=== PATIENT | male | born 1945 | race Hispanic/Latino ===

== ENCOUNTER 2019-10-17 11:30 | Outpatient (CLI) | payer MEDICARE, SELFPAY ==
--- NOTE | ~2019-10-17 | XR_ITS ---
XR chest 2V DATE: 10/17/2019 11:47 INDICATION: Cough, shortness of breath TECHNIQUE: PA and lateral views COMPARISON: 12/05/2018 CT chest 08/13/2017 two-view chest FINDINGS: Heart size is within normal limits. There is mild aortic calcification and tortuosity. No h ilar or mediastinal enlargement. No pulmonary infiltrate or consolidation, pleural effusion or pulmonary vascular congestion or pneumo thorax. Degenerative changes of the thoracic and lumbar spine. Status post cholecystectomy. IMPRESSION: No active cardiopulmonary disease or significant change since 08/13/2017 Reviewed, dictated and finalized at location B. IMPRESSION: No active cardiopulmonary disease or significant change since 2017
== END 2019-10-17 11:31 | disposition home or self-care (01) ==
PROVIDERS: PCP Internal Medicine; Visit Provider Internal Medicine
DX: R05 Cough (principal); R06.02 Shortness of breath
CPT/HCPCS: 71046

== ENCOUNTER 2020-02-28 08:16 | Outpatient (CLI) | payer MEDICARE, SELFPAY ==
[2020-02-28 09:15] LABS: Alanine Aminotransferase 24 U/L (4-50); Albumin Level 4.1 g/dL (3.5-5.1); Alkaline Phosphatase 61 U/L (38-126); Anion Gap 7 mmol/L (8-16); Aspartate Amino Transferase 25 U/L (17-59); Bilirubin,Total 0.9 mg/dL (0.2-1.3); Blood Urea Nitrogen 18 mg/dL (9-20); Calcium 9.1 mg/dL (8.4-10.2); Carbon Dioxide 29 mmol/L (22-30); Chloride 103 mmol/L (98-107); Cholesterol 186 mg/dL (0-200); Estimated Glomerular Filt Rate > 60; Glucose 96 mg/dL (75-110); HDL Direct 49 mg/dL; Sodium 139 mmol/L (137-145); Triglycerides 118 mg/dL (<150)
[2020-02-28 09:26] LABS: LDL Cholesterol Direct 100 mg/dL
== END 2020-02-28 08:17 | disposition home or self-care (01) ==
LOC: ANHLAB 08:20
PROVIDERS: PCP Internal Medicine; Visit Provider Nurse Practitioner
DX: F32.9 Major depressive disorder, single episode, unspecified (principal); Z13.6 Encounter for screening for cardiovascular disorders; Z12.5 Encounter for screening for malignant neoplasm of prostate
CPT/HCPCS: 36415; 80053; 80061; 84153; 84443; 87635; C9803; G0103; U0003

== ENCOUNTER 2020-03-05 07:52 | Outpatient (CLI) | payer MEDICARE, SELFPAY ==
--- NOTE | ~2020-03-05 | CT_ITS ---
EXAMINATION: CT chest w con DATE: 03/05/2020 08:40 INDICATION: Solitary pulmonary nodule TECHNIQUE: Transaxial computed tomographic images of the chest were obtained after the administration of 75 cc of Omnipaque 350 intravenous contrast. The dose-length product (DLP) was 199.15 mGy-cm. Ite rative reconstruction was used. COMPARISON: 12/05/2018, 12/07/2017 FINDINGS: The lungs are free of focal airspace opacities. There is mild dependent atelectasis. No pat hologically enlarged thoracic lymph nodes are identified. The heart size is normal. There are unchang ed mild subpleural reticular and groundglass opacities without honeycombing, consistent with chronic interstitial lung disease in a pattern of nonspecific interstitial pneumonia (NSIP). There is no pleu ral effusion or pneumothorax. Stable nodules of the minor fissure measuring up to 4 mm are consistent with fissural lymph nodes. The gallbladder is surgically absent. There is mild enlargement of the co mmon bile duct and central intrahepatic ducts which is likely due to post cholecystectomy state. Ther e is moderate thoracic spondylosis. IMPRESSION: 1. No suspicious pulmonary nodules identified. 2. Mild chronic interstitial lung disease without significant change. Reviewed, dictated and finalized at location A.
== END 2020-03-05 07:53 | disposition home or self-care (01) ==
PROVIDERS: PCP Internal Medicine; Visit Provider Nurse Practitioner
DX: R91.1 Solitary pulmonary nodule (principal); J84.9 Interstitial pulmonary disease, unspecified
CPT/HCPCS: 71260; Q9967

== ENCOUNTER 2020-04-26 08:01 | Emergency (ER) | payer MEDICARE, SELFPAY ==
--- NOTE | ~2020-04-26 | XR_ITS ---
EXAMINATION: XR chest 1V 04/26/2020 10:42 INDICATION: Fever and dyspnea PROCEDURE: AP view chest COMPARISON: Comparison to multiple prior studies sequentially, with oldest reviewed study dated 07/27. FINDINGS: No acute focal pneumonia, edema. Chronic left basilar atelectasis/scarring. The cardiomedia stinal silhouette is within normal limits. There are no pleural effusions. There is no pneumothorax suspected. IMPRESSION: 1: NO ACUTE CARDIOPULMONARY DISEASE. Reviewed, dictated and finalized at location A.
--- NOTE | ~2020-04-26 | CT_ITS ---
EXAMINATION: CT abdomen pelvis w con DATE: 04/26/2020 10:30 INDICATION: Mid abdomen pain TECHNIQUE: Computed tomography (CT) of the abdomen and pelvis was performed with 100 cc Omnipaque 350 intravenous contrast. The dose-length product was 397.28 mGy-cm. Automated exposure control and iter ative reconstruction technique were employed. COMPARISON: CT dated 09/29/2006. FINDINGS: Lung bases unremarkable. Heart size normal. No significant pleural or pericardial effusion. Status post cholecystectomy. There is a left hepatic cyst. The spleen, pancreas, adrenal glands and k idneys are unremarkable. Nonobstructive bowel gas pattern. Normal appendix. Bladder is unremarkable. Enlarged prostate gland. Colonic diverticulosis without evidence for diverticulitis. No free air or f ree fluid. No lymphadenopathy. Mild lower thoracic and lumbar spondylosis. No acute osseous abnormali ty. Status post cholecystectomy with expected prominence of the bile ducts. IMPRESSION: 1. No acute abdominal abnormality. 2: Enlarged prostate gland. Reviewed, dictated and finalized at location A.
[2020-04-26 08:04] VITALS: BP 123/84; PULSE 91; RESP 18; TEMP 36.6; O2SAT 100
[2020-04-26 09:02] LABS: Basophils Percent Auto 0.3 % (0.2-1.2); Eosinophils Absolute Auto 0.1 K/mm3 (0-0.3); Eosinophils Percent Auto 0.9 % (0-4.4); Hematocrit 41.6 % (42.0-52.0); Hemoglobin 14.5 g/dL (14.0-18.0); Immature Granulocyte Absolute 0.04 K/mm3 (0.00-0.031); Immature Granulocyte Percent A 0.3 % (0-0.5); Lymphocytes Absolute Auto 1.23 K/mm3 (0.9-3.2); Lymphocytes Percent Auto 10.5 % (18.3-44.2); Mean Corpuscular HGB Conc 34.9 g/dl (32-36); Mean Corpuscular Volume 97.7 fl (80-100); Mean Platelet Volume 12.1 fl (7.4-10.4); Monocytes Absolute Auto 0.8 K/mm3 (0.1-0.6); Monocytes Percent Auto 6.7 % (2.6-8.5); Neutrophils Absolute Auto 9.5 K/mm3 (1.3-6.7); Neutrophils Percent Auto 81.3 % (45.5-73.1); Platelet Count Result 136 k/mm3 (150-375); Red Blood Count 4.26 M/mm3 (4.6-6.20); White Blood Count 11.7 K/mm3 (4.5-10.0)
[2020-04-26 09:03] LABS: Add Urine Microscopic? NO; Appearance Urine Clear (Clear); Bilirubin Urine Negative (Negative); Blood Urine Negative (Negative); Color Urine Yellow (Yellow); Glucose Urine UA Negative (Negative); Ketones Urine Negative (Negative); Leukocyte Esterase Ur Negative LEU/UL (Negative); Nitrate Urine Negative (Negative); Protein Urine Negative (Negative); Urobilinogen Urine Negative mg/dL (<2.0)
[2020-04-26 09:15] LABS: Alanine Aminotransferase 27 U/L (4-50); Albumin Level 3.8 g/dL (3.5-5.1); Alkaline Phosphatase 63 U/L (38-126); Anion Gap 8 mmol/L (8-16); Aspartate Amino Transferase 24 U/L (17-59); Bilirubin,Total 1.4 mg/dL (0.2-1.3); Blood Urea Nitrogen 20 mg/dL (9-20); Calcium 8.8 mg/dL (8.4-10.2); Carbon Dioxide 28 mmol/L (22-30); Chloride 103 mmol/L (98-107); Estimated CRCL calculation 52 ml/min; Estimated Glomerular Filt Rate > 60; Glucose 105 mg/dL (75-110); Lipase 53 U/L (23-300); Potassium 3.9 mmol/L (3.4-5.0); Sodium 139 mmol/L (137-145)
[2020-04-26] MEDS: SODIUM CHLORIDE 0.9% IV 1,000 ML 999 ML IV CONT ×2 (09:35→12:17)
[2020-04-26] MEDS: ONDANSETRON INJ 4 MG/2 ML VIAL IV PUSH (09:36)
--- NOTE | 2020-04-26 09:41 | PC.NURSE ---
Zofran given as ordered. IVF started. patient updated on current treatment plan and expected wait time. call light in reach.
--- NOTE | 2020-04-26 10:02 | ED.NAVMDI ---
HPI - Nausea/Vomiting/Diarrhea General Chief complaint: Nausea/Vomiting/Diarrhea Stated complaint: food poisoning Time Seen by Provider: 04/26/20 09:12 Source: patient Mode of arrival: ambulatory Limitations: no limitations History of Present Illness HPI Narrative: 75 years old white male presented to the ED with nausea, vomiting, diarrhea, fever and headache. started last night. Patient also reports sore throat for the last 5 days. Patient believes that he had food poisoning., He denies eating anything unusual, he lives alone, nobody else ate the same food. Currently complaining of nausea and mid abdominal pain. Patient denies exposure to anybody with COVID-19. Patient denies any coughing, chest pain, shortness of breath, back pain. Related Data Allergies Allergy/AdvReac Type Severity Reaction Status Date / Time No Known Allergies Allergy Verified 04/15/20 10:52 Review of Systems Review of Systems: Narrative: CONSTITUTIONAL: Fever and chills EYES: Denies visual changes, redness, or discharge. ENT: Denies rhinorrhea, congestion, complaining of sore throat CARDIOVASCULAR: Denies chest pain, palpitations, or edema. RESPIRATORY: Denies cough or dyspnea. GASTROINTESTINAL: Complaining of abdominal pain, nausea, vomiting, diarrhea GENITOURINARY: Denies dysuria or hematuria. SKIN: Denies rash or itching. MUSCULOSKELETAL: Denies back pain, joint pain, or myalgia. NEUROLOGIC: Denies headache, numbness, or weakness. PSYCHIATRIC: Denies anxiety or depression. PMFSH Social History Social History Smoking status: Never smoker Alcohol intake: current Gender identity (if verbalized by the patient): Male Exam Narrative: Exam Narrative: General appearance: Well-developed, well-nourished Skin: Normal color Head: Normocephalic, nontraumatic Eyes: Clear conjunctiva ENT: Oropharynx normal, ears normal, nose normal Neck: Supple, nontender Chest and respiratory: Airway patent, no respiratory distress, no accessory muscle use Heart: Regular rate/rhythm Abdomen: Soft, mild diffuse tenderness mid abdomen, no organomegaly, quiet bowel sounds Vascular: Normal peripheral pulses, normal capillary refill. Musculoskeletal: Normal range of motion, nontender back Neurologic: Alert and oriented ?3, MECHANICAL DESIGN DRAFTER is normal as tested, no gross motor deficit Course Course Emergency Course: Improving Vital Signs Vital signs: Vital Signs Temperature 36.6 C 04/26/20 08:04 Pulse Rate 91 04/26/20 08:04 Respiratory Rate 18 04/26/20 08:04 Blood Pressure 123/84 04/26/20 08:04 Pulse Oximetry 100 04/26/20 08:04 Temperature 36.6 C 04/26/20 08:04 Pulse Rate 66 04/26/20 10:54 Respiratory Rate 15 04/26/20 10:54 Blood Pressure 105/70 04/26/20 10:54 Pulse Oximetry 100 04/26/20 10:54 MDM - Nausea/Vomiting/Diarrhea Lab Data Result diagrams: 04/26/20 08:44 04/26/20 08:44 Labs: Lab Results 04/26/20 04/26/20 04/26/20 Range/Units 08:44 08:44 08:44 WBC 11.7 H (4.5-10.0) K/mm3 RBC 4.26 L (4.6-6.20) M/mm3 Hgb 14.5 (14.0-18.0) g/dL Hct 41.6 L (42.0-52.0) % MCV 97.7 (80-100) fl MCH 34.0 (26-34) pg MCHC 34.9 (32-36) g/dl RDW 13.0 (11.5-14.5) % Plt Count 136 L (150-375) k/mm3 MPV 12.1 H (7.4-10.4) fl Immature Gran % (Auto) 0.3 (0-0.5) % Neut % (Auto) 81.3 H (45.5-73.1) % Lymph % (Auto) 10.5 L (18.3-44.2) % Lar[place] % (Auto) 6.7 (2.6-8.5) % Eos % (Auto) 0.9 (0-4.4) % Baso % (Auto) 0.3 (0.2-1.2) % Lymph # (Auto) 1.23 (0.9-3.2) K/mm3 Larimer # (Auto) 0.8 H (0.1-0.6) K/mm3 Eos # (Auto
[2020-04-26 10:54] VITALS: BP 105/70; PULSE 66; RESP 15; O2SAT 100
[2020-04-26 12:09] VITALS: BP 105/71; PULSE 66; RESP 18; O2SAT 99
[2020-04-26 12:43] VITALS: BP 104/73; PULSE 62; RESP 18; O2SAT 98
[2020-04-26 18:59] LABS: SARS-CoV-2 RNA PCR Negative
== END 2020-04-26 14:05 | disposition home or self-care (01) ==
PROVIDERS: Emergency Provider Emergency Medicine; PCP Internal Medicine
DX: K52.9 Noninfective gastroenteritis and colitis, unspecified (principal); Z20.828 Contact with and (suspected) exposure to other viral communicable diseases
CPT/HCPCS: 36415; 71045; 74177; 80053; 81003; 83690; 85025; 87635; 96361; 96374; 99284; C9803; J2405; J7030; Q9967; U0003

== ENCOUNTER 2020-08-27 08:23 | Outpatient (CLI) | payer MEDICARE, SELFPAY ==
--- NOTE | ~2020-08-27 | CT_ITS ---
EXAMINATION: CT sinus wo con DATE: 08/27/2020 09:03 INDICATION: Chronic sinusitis TECHNIQUE: Computed tomography (CT) of the paranasal sinuses was performed without intravenous contra st. The dose-length product was 282.50 mGy-cm. Automated exposure control and iterative reconstructio n technique were employed. COMPARISON: None FINDINGS: There is mucosal thickening of the right maxillary sinus. Ostiomeatal units are patent. No significant nasal septal deviation. Remainder of the paranasal sinuses are unremarkable. Mastoids are pneumatized minimal mucosal thickening of the right sphenoid sinus. No ventriculomegaly or midline s hift. IMPRESSION: 1. Mild sinus disease. Reviewed, dictated and finalized at location B. OPERATIONS SUPERVISOR IMPRESSION: 1. Mild sinus disease.
== END 2020-08-27 08:24 | disposition home or self-care (01) ==
PROVIDERS: PCP Internal Medicine; Visit Provider Otolaryngology
DX: J32.9 Chronic sinusitis, unspecified (principal)
CPT/HCPCS: 36415; 70486; 80053; 80061; 84443

== ENCOUNTER 2020-08-27 08:32 | Outpatient (CLI) | payer MEDICARE, SELFPAY ==
[2020-08-27 09:14] LABS: Alanine Aminotransferase 27 U/L (4-50); Albumin Level 4.1 g/dL (3.5-5.1); Alkaline Phosphatase 61 U/L (38-126); Anion Gap 5 mmol/L (8-16); Aspartate Amino Transferase 22 U/L (17-59); Bilirubin,Total 0.9 mg/dL (0.2-1.3); Blood Urea Nitrogen 20 mg/dL (9-20); Calcium 9.3 mg/dL (8.4-10.2); Carbon Dioxide 32 mmol/L (22-30); Chloride 104 mmol/L (98-107); Cholesterol 202 mg/dL (0-200); Estimated Glomerular Filt Rate 54; Glucose 88 mg/dL (75-110); HDL Direct 62 mg/dL; Sodium 141 mmol/L (137-145); Triglycerides 151 mg/dL (<150)
[2020-08-27 09:25] LABS: LDL Cholesterol Direct 97 mg/dL
== END 2020-08-27 08:33 | disposition home or self-care (01) ==
PROVIDERS: PCP Internal Medicine; Visit Provider Nurse Practitioner
DX: Z13.6 Encounter for screening for cardiovascular disorders (principal); F32.9 Major depressive disorder, single episode, unspecified
CPT/HCPCS: 36415; 80053; 80061; 84443

== ENCOUNTER → 2020-10-22 07:01 | Outpatient (CLI) | payer MEDICARE, SELFPAY ==
[2020-10-22 20:45] LABS: SARS-CoV-2 RNA PCR Negative
== END ==
PROVIDERS: PCP Internal Medicine; Visit Provider Nurse Practitioner
DX: R05 Cough (principal); Z20.822 Contact with and (suspected) exposure to COVID-19
CPT/HCPCS: C9803; U0003; U0005

== ENCOUNTER 2020-10-24 09:48 | Outpatient (CLI) | payer MEDICARE, SELFPAY ==
[2020-10-24 10:36] LABS: Basophils Percent Auto 0.4 % (0.2-1.2); Eosinophils Absolute Auto 0.1 K/mm3 (0-0.3); Eosinophils Percent Auto 1.8 % (0-4.4); Hematocrit 41.4 % (42.0-52.0); Hemoglobin 14.4 g/dL (14.0-18.0); Immature Granulocyte Absolute 0.02 K/mm3 (0.00-0.031); Immature Granulocyte Percent A 0.3 % (0-0.5); Lymphocytes Absolute Auto 2.83 K/mm3 (0.9-3.2); Lymphocytes Percent Auto 36.5 % (18.3-44.2); Mean Corpuscular HGB Conc 34.8 g/dl (32-36); Mean Corpuscular Hemoglobin 33.6 pg (26-34); Mean Corpuscular Volume 96.7 fl (80-100); Mean Platelet Volume 12.1 fl (7.4-10.4); Monocytes Absolute Auto 0.5 K/mm3 (0.1-0.6); Monocytes Percent Auto 6.8 % (2.6-8.5); Neutrophils Absolute Auto 4.2 K/mm3 (1.3-6.7); Neutrophils Percent Auto 54.2 % (45.5-73.1); Platelet Count Result 147 k/mm3 (150-375); Red Blood Count 4.28 M/mm3 (4.6-6.20); White Blood Count 7.8 K/mm3 (4.5-10.0)
== END 2020-10-24 09:49 | disposition home or self-care (01) ==
PROVIDERS: PCP Internal Medicine; Visit Provider Internal Medicine
DX: R06.02 Shortness of breath (principal)
CPT/HCPCS: 36415; 85025

== ENCOUNTER → 2021-02-20 12:45 | Outpatient (CLI) | payer MEDICARE, SELFPAY ==
--- NOTE | ~2021-02-20 | CT_ITS ---
EXAMINATION:CT chest high resolution wo ia DATE: 02/20/2021 12:59 INDICATION: Interstitial pulmonary disease. TECHNIQUE: Computed tomography (CT) of the chest was performed without intravenous contrast. Automate d exposure control and iterative reconstruction technique were employed. The dose-length product (DLP ) was 321.06 mGy-cm. COMPARISON: Chest CT 03/05/2020 FINDINGS: There is septal thickening in the lungs with a peripheral and lower lung predominance. Ther e are multiple new nodules and groundglass nodules in the lower lobes and posterior segment right upp er lobe. Again seen are nodules in right middle lobe measuring up to 5 mm, likely benign. No bronchie ctasis or honeycombing. The heart size is normal. No pericardial effusion. There is mild bilateral gy necomastia. There are changes of cholecystectomy. There is mild thoracic spondylosis. IMPRESSION: 1. Stable mild chronic interstitial lung disease in a pattern or nonspecific interstitial pneumonia ( NSIP) versus usual interstitial pneumonia (UIP). 2. New nodules and groundglass nodules in the lower lobes and posterior segment right upper lobe, lik radha pneumonia. Reviewed, dictated and finalized at location A. IMPRESSION: 1. Stable mild chronic interstitial lung disease in a pattern or nonspecific in terstitial pneumonia (NSIP) versus usual interstitial pneumonia (UIP). 2. New nodules and groundglass nodules in the lower lobes and posterior segment right upper lobe, likely pneumonia.
== END ==
PROVIDERS: Visit Provider Internal Medicine Pulmonary Disease
DX: J84.9 Interstitial pulmonary disease, unspecified (principal)
CPT/HCPCS: 71250

== ENCOUNTER 2021-03-09 08:54 | Outpatient (CLI) | payer MEDICARE, SELFPAY ==
--- NOTE | 2021-03-09 12:09 | WPDSIXMINUTE ---
Six Minute Walk Procedure Procedure Performed Pulmonary Stress Test (6 min walk) Six Minute Walk This is a 6 minute walk test. The test was performed and interpreted in accordance with the 2014 ERS/ATS task force guidelines. Findings: The patient's resting room air oxygen saturation measured by pulse oximetry was 98% and her heart rate was 64 bpm. Patient ambulated for 396 meters and oxygen saturation remained 94 to 98%. Heart rate at the end of the study was 94 bpm. The patient did not qualify for supplemental oxygen at rest or with ambulation. There are no prior studies for comparison.
--- NOTE | 2021-03-09 12:10 | WPDPFTINT ---
PFT Procedure Performed PFT Procedure Performed Spirometry with Pre/Post Bronchodilator Plethysmography (Lung Vol) Diffusing Cap (DLCO) Flow Vol Loop PFT Interpretation This is a pulmonary function test with pre and post-bronchodilator spirometry, plethysmography and diffusing capacity. The test was performed and results interpreted in accordance with the 2019 and 2005 ATS/ERS Task Force guidelines respectively using the Global Lung Function Initiative-2012 reference equations. Patient demonstrated good effort and cooperation. Reproducibility criteria were met. The quality of the pre bronchodilator spirometry maneuver was Grade A and post bronchodilator spirometry maneuver was Grade A. Findings: Spirometry: The contour the inspiratory and expiratory flow tracing are normal. The pre bronchodilator FVC is 3.30 L, 104% predicted. The pre bronchodilator FEV1 is 2.47 L, 101% predicted. The FEV1: FVC ratio 75%. The post bronchodilator FVC is 3.42 L, representing a 3% increase. The post bronchodilator FEV1 is 2.73 L, representing a 10% increase. Plethysmography: The total lung capacity is 5.93 L, 94% predicted. The functional residual capacity is 3.71 L, 110% predicted. The residual volume is 2.15 L, 90% predicted. Diffusing capacity: The absolute diffusion capacity is 20.3, 87% predicted. The diffusing capacity corrected for alveolar volume is 4.28, 108% predicted. Impression: The spirometry is normal without evidence of an obstructive abnormality. There is no significant improvement after inhaling a single dose of albuterol. The lung volumes are normal. The diffusing capacity is normal. There are no prior studies for comparison
[2021-03-09 13:31] LABS: Rheumatoid Factor < 8.6 IU/ML (<12)
[2021-03-11 10:00] LABS: ANA Cascade Screen Negative (Negative)
[2021-03-11 22:24] LABS: ANCA Screen Negative (Negative)
== END 2021-03-09 08:55 | disposition home or self-care (01) ==
PROVIDERS: PCP Internal Medicine; Visit Provider Internal Medicine Pulmonary Disease
DX: R06.00 Dyspnea, unspecified (principal); J40 Bronchitis, not specified as acute or chronic; Z72.0 Tobacco use; J84.9 Interstitial pulmonary disease, unspecified
CPT/HCPCS: 36415; 86021; 86038; 86331; 86430; 86606; 86609; 94060; 94618; 94726; 94729

== ENCOUNTER 2021-03-18 08:29 | Outpatient (CLI) | payer MEDICARE, SELFPAY ==
--- NOTE | ~2021-03-18 | XR_ITS ---
EXAMINATION: XR UGIAC w barium swallow DATE: 03/18/2021 09:22 INDICATION: Gastroesophageal reflux disease without esophagitis TECHNIQUE: The patient drank thick barium, gas-producing crystals, and thin barium. Conventional supi ne abdomen radiographs and fluoroscopy of the esophagus, stomach, and proximal small bowel were perfo rmed. Fluoroscopy exposure time was 3.0 minutes. The DAP for this procedure was 24.818 Gycm2. COMPARISON: None. FINDINGS: There is no mass or stricture of the esophagus. Esophageal motility is normal. There is a s mall sliding hiatal hernia. There was no gastroesophageal reflux with provocative maneuvers. The stom ach and proximal small bowel show normal folding patterns. IMPRESSION: 1. Small sliding hiatal hernia. Reviewed, dictated and finalized at location A.
--- NOTE | 2021-03-20 12:46 | WPDHOLTEREM ---
Holter/Event Monitor Holter/Event Monitor Date of procedure: 03/20/21 Holter/Event Procedure: 24 Hr Holter Monitor Indications: Palpitations Conclusion: 1. 24 hour holter monitor on 03/20/21. 2. Predominant rhythm is sinus rhythm. HR range 52-104 bpm; average HR 68 bpm. 3. There are 13 premature supraventricular complexes. There are 3 episodes of atrial tachycardia, fastest at 136 bpm and longest lasting 9 beats. 4. There are 170 premature ventricular complexes. No ventricular tachycardia. 5. No sinoatrial or atrioventricular blocks. No significant pauses greater than 2 seconds. 6. Patient reports symptoms of fluttering which demonstrate sinus rhythm, HR range 64-77 bpm and 1 PVC.
== END 2021-03-18 08:30 | disposition home or self-care (01) ==
PROVIDERS: PCP Internal Medicine; Visit Provider Internal Medicine
DX: R00.2 Palpitations (principal); K21.9 Gastro-esophageal reflux disease without esophagitis
CPT/HCPCS: 74246; 93225; 93226

== ENCOUNTER 2021-06-03 13:37 | Outpatient (CLI) | payer MEDICARE, SELFPAY ==
--- NOTE | 2021-06-03 13:59 | ECHO_ITS ---
Patient Info Name: Modesto Atwood Age: 76 years : 1945 Gender: Male Ht: 67 in Wt: 165 lbs BSA: 1.89 m2 HR: 67 bpm BP: 114 / 82 mmHg Exam Date: 06/03/2021 2:17 PM Exam Location: [facility] Patient Status: Outpatient Admit Date: 06/03/2021 Staff Ordering Physician: Jaison Meade MD Hotel Registration Clerk: Carroll Solomon RDCS, RT Attending Provider: Jaison Meade MD Referring Physician: Deshaun BOO; Exam Type: CA echo doppler color flow Study Info Indications R06.02 - Shortness of breath Complete two-dimensional, color flow and Doppler transthoracic echocardiogram is performed. Strain analysis performed. Summary 1. Complete two-dimensional, color flow and Doppler transthoracic echocardiogram is performed. 2. Left ventricular chamber dimension is normal. 3. Left ventricular systolic function is normal, estimated at 60-65%. 4. The left ventricular diastolic function is grade I diastolic dysfunction. 5. E/e' 12 is mildly elevated. 6. Global longitudinal strain is normal at -20.7%. 7. Left atrial chamber dimension is mildly enlarged. 8. There is mild mitral valve regurgitation. 9. There is mild pulmonic regurgitation. Left Ventricle E/e' 12 is mildly elevated. Global longitudinal strain is normal at -20.7%. Left ventricular chamber dimension is normal. Left ventricular systolic function is normal, estimated at 60-65%. The left ventricular diastolic function is grade I diastolic dysfunction. Right Ventricle Right ventricular systolic function is normal and with normal TAPSE 2.5 cm. Right ventricular chamber dimension is normal. Left Atria Left atrial chamber dimension is mildly enlarged. Right Atria Right atrial chamber dimension is normal. Aortic Valve The aortic valve is trileaflet. There is no aortic valve stenosis. There is no aortic valve regurgitation. Pulmonic Valve There is mild pulmonic regurgitation. Mitral Valve There is no mitral valve stenosis. There is mild mitral valve regurgitation. Tricuspid Valve There is no tricuspid valve regurgitation. Pericardium/Pleural There is no pericardial effusion. Inferior Vena Cava Normal inferior vena cava with >50% collapse upon inspiration consistent with normal right atrial pressure, 5 mmHg. Aorta The aortic root size at the sinus of Valsalva is normal. Left Ventricular Outflow Tract Name Value Normal LVOT 2D LVOT Diameter 2.0 cm LVOT Doppler LVOT Peak Gradient 3 mmHg LVOT Mean Gradient 2 mmHg LVOT VTI 21 cm LVOT VTI/AV VTI Ratio 0.8 LVOT Stroke Volume 64 ml LVOT CO 4.2 l/min LVOT CI 2.2 l/min/m2 Mitral Valve Name Value Normal MV Doppler
== END 2021-06-03 13:38 | disposition home or self-care (01) ==
PROVIDERS: PCP Internal Medicine; Visit Provider Internal Medicine Pulmonary Disease
DX: R06.02 Shortness of breath (principal); J84.9 Interstitial pulmonary disease, unspecified; I34.0 Nonrheumatic mitral (valve) insufficiency; I37.1 Nonrheumatic pulmonary valve insufficiency
CPT/HCPCS: 93306

== ENCOUNTER 2021-09-28 07:23 | Outpatient (CLI) | payer MEDICARE, SELFPAY ==
[2021-09-28 07:45] LABS: Anion Gap 4 mmol/L (8-16); Blood Urea Nitrogen 18 mg/dL (9-20); Calcium 8.5 mg/dL (8.4-10.2); Carbon Dioxide 29 mmol/L (22-30); Chloride 107 mmol/L (98-107); Cholesterol 174 mg/dL (0-200); Estimated Glomerular Filt Rate > 60; Glucose 101 mg/dL (65-110); HDL Direct 41 mg/dL; Sodium 140 mmol/L (137-145); Triglycerides 120 mg/dL (<150)
[2021-09-28 07:56] LABS: LDL Cholesterol Direct 96 mg/dL
[2021-10-03 08:01] LABS: Testosterone Total 331 ng/dL (250-1100)
== END 2021-09-28 07:24 | disposition home or self-care (01) ==
LOC: ANHLAB 07:25
PROVIDERS: PCP Internal Medicine; Visit Provider Internal Medicine
DX: E29.1 Testicular hypofunction (principal); Z13.6 Encounter for screening for cardiovascular disorders
CPT/HCPCS: 36415; 80048; 80061; 84403

== ENCOUNTER 2021-11-04 13:02 | Emergency (ER) | payer MEDICARE, SELFPAY ==
--- NOTE | ~2021-11-04 | XR_ITS ---
EXAMINATION: XR chest 2V DATE: 11/04/2021 13:37 INDICATION: Shortness of breath. Palpitations. TECHNIQUE: Frontal and lateral views of the chest were obtained. COMPARISON: Chest single view 04/26/2020 FINDINGS: There is chronic eventration of anterior right hemidiaphragm. There is mild atelectasis in left lower lung zone. No pleural effusion or pneumothorax. The heart size is normal. Surgical clips i n the right upper quadrant are likely from cholecystectomy. IMPRESSION: 1. Mild atelectasis in left lower lung zone. Reviewed, dictated and finalized at location B.
--- NOTE | 2021-11-04 13:06 | ECG_ITS ---
Measurements Intervals Allison Rate: 64 P: 35 RI: 168 QRS: -25 QRSD: 107 T: 42 QT: 384 QTc: 399 Interpretive Statements SINUS RHYTHM WITH OCCASIONAL VENTRICULAR PREMATURE COMPLEXES POSSIBLE LEFT ATRIAL ENLARGEMENT [-0.1mV P WAVE IN V1/V2] BORDERLINE ECG NO PREVIOUS ECG AVAILABLE FOR COMPARISON Electronically Signed On 11-04-2021 18:11:19 CDT by Deshaun Sanchez M.D.
[2021-11-04 13:15] VITALS: BP 127/83; PULSE 69; RESP 17; TEMP 36.8; O2SAT 100
[2021-11-04] MEDS: ASPIRIN 81 MG CHEWABLE TABLET 324 MG PO (13:27)
[2021-11-04 13:36] LABS: Basophils Percent Auto 0.3 % (0.2-1.2); Eosinophils Absolute Auto 0.1 K/mm3 (0-0.3); Hematocrit 42.4 % (42.0-52.0); Hemoglobin 14.3 g/dL (14.0-18.0); Immature Granulocyte Absolute 0.03 K/mm3 (0.00-0.031); Immature Granulocyte Percent A 0.4 % (0-0.5); Lymphocytes Absolute Auto 2.43 K/mm3 (0.9-3.2); Lymphocytes Percent Auto 34.3 % (18.3-44.2); Mean Corpuscular HGB Conc 33.7 g/dl (32-36); Mean Corpuscular Hemoglobin 33.9 pg (26-34); Mean Corpuscular Volume 100.5 fl (80-100); Mean Platelet Volume 12.4 fl (7.4-10.4); Monocytes Absolute Auto 0.7 K/mm3 (0.1-0.6); Monocytes Percent Auto 9.6 % (2.6-8.5); Neutrophils Absolute Auto 3.9 K/mm3 (1.3-6.7); Neutrophils Percent Auto 54.4 % (45.5-73.1); Platelet Count Result 145 k/mm3 (150-375); Red Blood Count 4.22 M/mm3 (4.6-6.20); Red Cell Distribution Width 13.2 % (11.5-14.5); White Blood Count 7.1 K/mm3 (4.5-10.0)
[2021-11-04 13:47] LABS: Alanine Aminotransferase 22 U/L (4-50); Albumin Level 4.2 g/dL (3.5-5.1); Alkaline Phosphatase 65 U/L (38-126); Anion Gap 4 mmol/L (8-16); Aspartate Amino Transferase 24 U/L (17-59); Bilirubin,Total 0.7 mg/dL (0.2-1.3); Blood Urea Nitrogen 15 mg/dL (9-20); Calcium 9.1 mg/dL (8.4-10.2); Carbon Dioxide 27 mmol/L (22-30); Chloride 105 mmol/L (98-107); Estimated CRCL calculation 45 ml/min; Estimated Glomerular Filt Rate > 60; Glucose 90 mg/dL (65-110); Lipase 75 U/L (23-300); Potassium 4.2 mmol/L (3.4-5.0); Sodium 136 mmol/L (137-145)
[2021-11-04 13:52] LABS: INR 1.1; Prothrombin Time 13.6 Seconds (11.1-14.7)
[2021-11-04 13:53] LABS: Partial Thromboplastin Time 29.9 SECONDS (22.3-36.8)
[2021-11-04 13:59] LABS: Troponin I < 0.012 ng/mL (0.000-0.034)
[2021-11-04 16:08] LABS: Troponin I < 0.012 ng/mL (0.000-0.034)
[2021-11-04 16:57] VITALS: BP 125/88; PULSE 62; RESP 18; O2SAT 95
--- NOTE | 2021-11-04 17:11 | ED.CHESTPAIN ---
HPI - Chest Pain General Chief Complaint: Chest Pain Stated Complaint: dizzy, palpitations Time Seen by Provider: 11/04/21 13:14 Source: patient Mode of arrival: ambulatory History of Present Illness HPI narrative: 76-year-old with a history of GERD, here with complaints of chest pain and palpitations for past 6 months. Patient states that soon after he eats lunch or dinner he gets chest discomfort followed by palpitations which last for 8 hours. She states that he has seen human resources file clerk was told he has GERD and is scheduled to see online advertising director in November. He presently denies having any pain or shortness of breath. No history of nausea or vomiting. MD complaint: chest pain Onset (ago): month(s) (6) Timing of current episode: episodic Onset: after eating Pain location: substernal Pain radiation: none Severity: moderate Associated symptoms: palpitations Risk Factors Coronary artery disease risk factors: none Thoracic aortic dissection risk factors: none Related Data Home Medications Medication Instructions Recorded Confirmed omeprazole 40 mg capsule,delayed 40 mg PO DAILY 09/24/21 09/24/21 release Allergies Allergy/AdvReac Type Severity Reaction Status Date / Time mold Allergy Mild n Verified 11/04/21 13:20 Review of Systems Review of Systems: All systems reviewed & are unremarkable except as noted in HPI and below Constitutional: Constitutional: Reports no additional constitutional complaints Eyes: Eyes: Reports no additional eye complaints ENT: Reports system reviewed and no additional complaints, except as documented Cardiovascular: Cardiovascular: Reports as per HPI Respiratory: Respiratory: Reports as per HPI Gastrointestinal: Gastrointestinal: Reports as per HPI Musculoskeletal: Musculoskeletal: Reports no additional musculoskeletal complaints [facility] Past Medical History Medical History Acid reflux Family History Family History Sibling Hypertension Social History Social History Smoking status: Never smoker Second hand tobacco smoke exposure: No Alcohol intake: current Alcohol use details: Social Substance use: never Gender identity (if verbalized by the patient): Male Exam Narrative: GENERAL: Well-appearing, well-nourished, anxious , and in no acute distress. HEAD: Normocephalic, atraumatic. EYES: PERRLA and EOMI. NECK: Supple. CHEST: Clear to auscultation. No respiratory distress. HEART: Regular rate and rhythm. No murmur heard. Normal peripheral pulses. ABDOMEN: Soft, nontender, nondistended, normal active bowel sounds. EXTREMITIES: Normal range of motion. No edema. SKIN: Warm, dry, no rash. NEURO: No focal deficits. Alert and oriented x3. PSYCH: Normal mood and affect. Course Course Emergency Course: Patient is pain-free in informed him about his lab work, x-ray findings. I discussed with Dr. Asif we will see him in the office this week. Vital Signs Vital signs: Vital Signs Temperature 36.8 C 11/04/21 13:15 Pulse Rate 69 11/04/21 13:15 Respiratory Rate 17 11/04/21 13:15 Blood Pressure 127/83 11/04/21 13:15 Pulse Oximetry 100 11/04/21 13:15 Temperature 36.8 C 11/04/21 13:15 Pulse Rate 62 11/04/21 16:57 Respiratory Rate 18 11/04/21 16:57 Blood Pressure 125/88 11/04/21 16:57 Pulse Oximetry 95 11/04/21 16:57 MDM - Chest Pain Differential Diagnosis Differential diagnosis: Likely unstable angina pectoris, atypical chest pain, chest pain and other (Anxiety) Medical Records Data Attestation: I reviewed the patient's medical records. Lab Data Attestation: I reviewed the patient's lab results. Result diagrams: 11/04/21 13:28 11/04/21 13:28 Labs: Lab Results 11/04/21 11/04/21 11/04/21 Range/Units 13:28 13:28 13:28 WBC 7.1
== END 2021-11-04 17:29 | disposition home or self-care (01) ==
PROVIDERS: Emergency Medicine; Emergency Provider Family Medicine; PCP Internal Medicine
DX: R07.9 Chest pain, unspecified (principal); K21.9 Gastro-esophageal reflux disease without esophagitis
CPT/HCPCS: 36415; 71046; 80053; 83690; 84484; 85025; 85610; 85730; 93005; 99284; A9270

== ENCOUNTER 2021-11-13 09:58 | Outpatient (CLI) | payer MEDICARE, SELFPAY ==
--- NOTE | ~2021-11-13 | NM_ITS ---
EXAMINATION: NM laureen stress w perfusion DATE: 11/13/2021 12:01 INDICATION: Chest pain, unspecified. TECHNIQUE: Rest images were obtained following intravenous administration of 9.4 mCi Tc99m tetrofosmi n (Myoview). The patient was infused intravenously with Lexiscan (regadenoson). Then, 11.21 mCi Tc99m tetrofosmin (Myoview) was administered intravenously, and stress images were obtained. Data was marlena nstructed into short axis and horizontal and vertical long axis SPECT images. Gated SPECT images were also obtained. COMPARISON: Chest CT 02/20/2021 FINDINGS: There is no definite reversible or fixed perfusion abnormality to suggest ischemia or infar ction. There is no segmental wall motion abnormality. Left ventricular ejection fraction measures > 70%. IMPRESSION: 1. No definite ischemia or infarct. 2. Normal left ventricular ejection fraction measuring >70%. Reviewed, dictated and finalized at location A.
--- NOTE | 2021-11-13 10:09 | EST_ITS ---
Patient Info Name: Modesto Atwood Age: 76 years : 1945 Gender: Male Ht: 66 in Wt: 170 lbs BSA: 1.91 m2 Exam Date: 11/13/2021 11:09 AM Exam Location: [facility] Stress Patient Status: Outpatient Admit Date: 11/13/2021 Staff Ordering Physician: René Asif DO Attending Provider: René Asif DO Exercise Technologist: Charlotte Loya RDCS Exercise Physician: René Asif DO Exam Type: CA stress test treadmill w NM Study Info Indications R07.9 - Chest pain, unspecified A nuclear stress test was performed. Summary 1. 1. Negative Denilson exercise stress test for ischemic ST changes by ECG criteria. 2. 2. Reduced functional capacity, achieving 6 METs of workload. 3. 3. Appropriate HR response to exercise. 4. 4. Appropriate HR recovery at 1 minute post exercise. 5. 5. Frequent baseline ventricular ectopics. 6. 6. Nuclear scan to follow and will be reported separately. Please correlate with it. 7. 7. Patient informed of the above results. Protocol: Denilson Stress ECG Details Stage: REST Duration (min): 5 min : 41 sec Speed (mph): 0.0 Grade (%): 0 HR (bpm): 67 SBP (mmHg): 119 DBP (mmHg): 81 METS: --- Stage: REST Duration (min): 7 min : 46 sec Speed (mph): 0.0 Grade (%): 0 HR (bpm): 64 SBP (mmHg): 119 DBP (mmHg): 81 METS: --- Stage: STAGE 1 Duration (min): 1 min : 0 sec Speed (mph): 1.7 Grade (%): 10 HR (bpm): 93 SBP (mmHg): 119 DBP (mmHg): 81 METS: --- Stage: STAGE 1 Duration (min): 2 min : 0 sec Speed (mph): 1.7 Grade (%): 10 HR (bpm): 115 SBP (mmHg): 119 DBP (mmHg): 81 METS: --- Stage: STAGE 1 Duration (min): 3 min : 0 sec Speed (mph): 1.7 Grade (%): 10 HR (bpm): 122 SBP (mmHg): 135 DBP (mmHg): 92 METS: --- Stage: STAGE 2 Duration (min): 0 min : 50 sec Speed (mph): 2.5 Grade (%): 12 HR (bpm): 130 SBP (mmHg): 135 DBP (mmHg): 92 METS: --- Stage: RECOVERY Duration (min): 0 min : 9 sec Speed (mph): 1.5 Grade (%): 0 HR (bpm): 132 SBP (mmHg): 135 DBP (mmHg): 92 METS: --- Stage: RECOVERY Duration (min): 1 min : 9 sec Speed (mph): 0.0 Grade (%): 0 HR (bpm): 113 SBP (mmHg): 135 DBP (mmHg): 92 METS: --- Stage: RECOVERY Duration (min): 2 min : 9 sec Speed (mph): 0.0 Grade (%): 0 HR (bpm): 93 SBP (mmHg): 177 DBP (mmHg): 100 METS: --- Stage: RECOVERY Duration (min): 3 min : 9 sec Speed (mph): 0.0 Grade (%): 0 HR (bpm): 87 SBP (mmHg): 147 DBP (mmHg): 100 METS: --- Stage: RECOVERY Duration (min): 4 min : 9 sec Speed (mph): 0.0 Grade (%): 0 HR (bpm): 82 SBP (mmHg): 147 DBP (mmHg): 100 METS: --- Stage: RECOVERY Duration (min): 4 min : 39 sec Speed (mph): 0.0 Grade (%): 0 HR (bpm): 79 SBP (mmHg): 132 DBP (mmHg): 98 METS: --- Rest HR: 64 bp
== END 2021-11-13 09:59 | disposition home or self-care (01) ==
PROVIDERS: PCP Internal Medicine; Visit Provider Internal Medicine Cardiovascular Disease
DX: R07.9 Chest pain, unspecified (principal)
CPT/HCPCS: 78452; 93017; A9502

== ENCOUNTER 2022-04-12 08:25 | Outpatient (CLI) | payer MEDICARE, SELFPAY ==
[2022-04-12 09:47] LABS: Alanine Aminotransferase 27 U/L (6-50); Albumin Level 3.9 g/dL (3.5-5.1); Alkaline Phosphatase 71 U/L (38-126); Anion Gap 7 mmol/L (8-16); Aspartate Amino Transferase 22 U/L (17-59); Bilirubin,Total 0.7 mg/dL (0.2-1.3); Blood Urea Nitrogen 22 mg/dL (9-20); Calcium 8.9 mg/dL (8.4-10.2); Carbon Dioxide 26 mmol/L (22-30); Chloride 105 mmol/L (98-107); Estimated Glomerular Filt Rate > 60; Glucose 94 mg/dL (65-110); Potassium 4.1 mmol/L (3.4-5.0); Sodium 138 mmol/L (137-145)
[2022-04-15 10:20] LABS: Testosterone Total 310 ng/dL (250-1100)
== END 2022-04-12 08:26 | disposition home or self-care (01) ==
LOC: ANHLAB 08:26
PROVIDERS: PCP Internal Medicine; Visit Provider Nurse Practitioner
DX: Z13.6 Encounter for screening for cardiovascular disorders (principal); E29.1 Testicular hypofunction; R45.89 Other symptoms and signs involving emotional state
CPT/HCPCS: 36415; 80053; 84403; 84443

== ENCOUNTER 2022-05-26 08:04 | Emergency (ER) | payer MEDICARE, SELFPAY ==
[2022-05-26 08:13] VITALS: BP 114/78; PULSE 97; RESP 16; TEMP 38.4; O2SAT 98
[2022-05-26 08:14] VITALS: BP 114/78; PULSE 97; RESP 16; TEMP 38.4; O2SAT 98
--- NOTE | 2022-05-26 08:20 | ED.URI ---
HPI - URI/Sore Throat General Chief Complaint: Upper Respiratory Infection Stated Complaint: Fever,Headache Time Seen by Provider: 05/26/22 08:20 Source: patient and RN notes reviewed Mode of arrival: ambulatory Limitations: no limitations History of Present Illness HPI Narrative: 77 y/o male presented for c/o Headache, body aches, sinus pressure/congestion, cough, fever/chills for 2 days. Fever this am 103. Decreased appetite. Taking ibuprofen. Denies sob, wheezing, vomiting, diarrhea. Pt is covid/flu vaccinated. Denies sick contacts. Hx ILD, intersititial pneumonitis. MD elicited complaint: cough Related Data Home Medications Medication Instructions Recorded Confirmed omeprazole 40 mg capsule,delayed 40 mg PO DAILY 09/24/21 05/26/22 release Allergies Allergy/AdvReac Type Severity Reaction Status Date / Time No Known Allergies Allergy Verified 05/26/22 08:41 Review of Systems Review of Systems: ROS per HPI PMFSH Past Medical History Medical History Acid reflux Family History Family History Sibling Hypertension Social History Social History Smoking status: Never smoker Second hand tobacco smoke exposure: Yes Alcohol intake: former Alcohol use details: Social Substance use: never Substance use type: does not use Lack of Transportation: No Lack of Food: Never True Current Housing: I Do Not Have Housing Concerned About Future Housing: No Difficulty Paying Gas/Electric Bills: No Difficulty Paying for Meds: No Gender identity (if verbalized by the patient): Male Exam Narrative: GENERAL: Ill-appearing, nontoxic EYES: PERRLA, conjunctivae clear ENT: Mucous membranes moist. TM pearly hobbs with dull light reflex bilaterally; no tragal tenderness. Oropharynx erythematous without lesions or exudate, no drooling, no hoarseness, no trismus, uvula midline. CHEST: Clear to auscultation, breath sounds equal. No wheezing, rhonchi, rales, or stridor. No respiratory distress, speaks in full sentences. HEART: Regular rate and rhythm. No murmur heard. SKIN: Warm, dry, no rash. NEURO: Alert and oriented x3. Course Course Emergency Course: Patient is aware of diagnosis, understands and agrees to treatment plan. Anticipatory guidance given. Patient agrees to follow-up as directed and is aware of reasons to seek care at the emergency department. Portions of this record may have been created with voice recognition software Level of Care: Express Care Visit Vital Signs Vital signs: Vital Signs Temperature 101.1 F H 05/26/22 08:13 Pulse Rate 97 05/26/22 08:13 Respiratory Rate 16 05/26/22 08:13 Blood Pressure 114/78 05/26/22 08:13 Pulse Oximetry 98 05/26/22 08:13 Oxygen Delivery Room Air 05/26/22 08:13 Temperature 101.1 F H 05/26/22 08:14 Pulse Rate 97 05/26/22 08:14 Respiratory Rate 16 05/26/22 08:14 Blood Pressure 114/78 05/26/22 08:14 Pulse Oximetry 98 05/26/22 08:14 Oxygen Delivery Room Air 05/26/22 08:14 reviewed MDM - URI/Sore Throat MDM Narrative Medical decision making narrative: influenza negative, covid positive. Results reviewed with patient. Advised supportive measures and signs/symptoms to go to the ER. Pt is appropriate for outpt treatment and f/u. Discussed pt may f/u with pcp regarding indication for antiviral medication. Differential Diagnosis Differential diagnosis: Likely upper respiratory infection, sinusitis and viral infection Lab Data Labs: Influenza A Screen Negative Reference Range: Negative Influenza A Screen Negative Reference Range: Negative Influenza B Screen Negative
== END 2022-05-26 09:05 | disposition home or self-care (01) ==
PROVIDERS: Emergency Provider Nurse Practitioner Family; PCP Internal Medicine
DX: U07.1 COVID-19 (principal); K21.9 Gastro-esophageal reflux disease without esophagitis
CPT/HCPCS: 87426; 87804; 99213; C9803; G0463

== ENCOUNTER 2022-09-06 10:36 | Outpatient (CLI) | payer MEDICARE, SELFPAY ==
[2022-09-06 11:42] LABS: Alanine Aminotransferase 27 U/L (6-50); Albumin Level 4.2 g/dL (3.5-5.1); Alkaline Phosphatase 69 U/L (38-126); Anion Gap 5 mmol/L (8-16); Aspartate Amino Transferase 22 U/L (17-59); Bilirubin,Total 0.8 mg/dL (0.2-1.3); Blood Urea Nitrogen 17 mg/dL (9-20); Carbon Dioxide 30 mmol/L (22-30); Chloride 104 mmol/L (98-107); Estimated Glomerular Filt Rate > 60; Glucose 100 mg/dL (65-110); Potassium 4.2 mmol/L (3.4-5.0); Sodium 139 mmol/L (137-145)
[2022-09-06 12:15] LABS: Prostate Specific Antigen 1.4 ng/mL (< OR = 4.0)
[2022-09-12 10:00] LABS: Testosterone Total 344 ng/dL (250-1100)
== END 2022-09-06 10:37 | disposition home or self-care (01) ==
PROVIDERS: PCP Internal Medicine; Visit Provider Nurse Practitioner Family
DX: R07.9 Chest pain, unspecified (principal); E29.1 Testicular hypofunction; Z12.5 Encounter for screening for malignant neoplasm of prostate
CPT/HCPCS: 36415; 80053; 84153; 84403; G0103

== ENCOUNTER 2022-09-09 11:33 | Emergency (ER) | payer MEDICARE, SELFPAY ==
[2022-09-09 11:43] VITALS: BP 133/77; PULSE 91; RESP 16; TEMP 37.3; O2SAT 100
--- NOTE | 2022-09-09 11:45 | ED.URI ---
HPI - URI/Sore Throat General Chief Complaint: Upper Respiratory Infection Stated Complaint: Fever/Sore Throat/Eyes Time Seen by Provider: 09/09/22 11:50 Source: patient, RN notes reviewed and old records reviewed Mode of arrival: ambulatory Limitations: no limitations History of Present Illness HPI Narrative: 77-year-old male presents to the [facility] with complaints of itchy eyes, sore throat and fever as well as body aches for 2 days. Has not taken anything for his symptoms. Reports fevers of 99. Flu and COVID vaccinated Onset (ago): day(s) (2) Related Data Home Medications Medication Instructions Recorded Confirmed No Home Medications 09/09/22 09/09/22 Allergies Allergy/AdvReac Type Severity Reaction Status Date / Time No Known Allergies Allergy Verified 09/09/22 11:51 Review of Systems Review of Systems: All systems reviewed & are unremarkable except as noted in HPI and below Constitutional: Constitutional: Reports as per HPI, Reports body ache(s), Reports fatigue and Reports fever(s) Eyes: Eyes: Reports as per HPI ENT: Reports as per HPI Cardiovascular: Cardiovascular: Reports no additional cardiovascular complaints, Denies chest pain and Denies dyspnea Respiratory: Respiratory: Reports no additional respiratory complaints, Denies chest congestion, Denies cough and Denies dyspnea Gastrointestinal: Gastrointestinal: Reports no additional gastrointestinal complaints, Denies abdominal pain, Denies nausea and Denies vomiting Musculoskeletal: Musculoskeletal: Reports no additional musculoskeletal complaints Integumentary/Breasts: Skin/Breast: Reports system reviewed and no additional complaints, except as docu Neurologic: Reports system reviewed and no additional complaints, except as documented Psychiatric: Psychiatric: Reports no additional psychiatric complaints Allergic/Immunologic: Allergic/Immunologic: Reports no additional allergic/immunologic complaints [facility] Past Medical History Medical History Acid reflux Family History Family History Sibling Hypertension Social History Social History Smoking status: Never smoker Second hand tobacco smoke exposure: Yes Alcohol intake: never Substance use: never Substance use type: does not use Lack of Transportation: No Lack of Food: Never True Current Housing: I Do Not Have Housing Concerned About Future Housing: No Difficulty Paying Gas/Electric Bills: No Difficulty Paying for Meds: No Currently Unemployed: No Education: Associate Degree Difficulty w/ Childcare or Family Care: Decline to Answer Gender identity (if verbalized by the patient): Male Comments At the time of my signature, I reviewed and agree with the nursing past medical, surgical, social, and family history. There is no relevant family history pertinent to the patient complaint. Exam Const: General: cooperative, healthy appearing, comfortable, no acute distress, well developed, alert and well nourished Nutritional Appearance: well nourished Orientation/consciousness: patient oriented x3 Limitations: no limitations HENMT: Head: normal to inspection Ears: hearing grossly normal bilaterally and external ears normal Face/Nose/Sinus: Normal external nose present, Normal nares present, Normal nasal mucous membranes and turbinates present and normal facial exam Face and sinus: normal facial exam Mouth: Yes Normal oral and palatal mucosa present, Yes lip normal and Yes moist mucous membranes Throat: posterior oropharynx normal and uvula midline Eyes: General: appearance normal, both eyes and all related structures Alignment and Position: alignment normal Periorbital: periorbital findings normal Conjunctivae: conjunctivae normal Pupils: Equal, round and reactive pupils present EOM: EOMs in
== END 2022-09-09 12:22 | disposition home or self-care (01) ==
PROVIDERS: Emergency Provider Nurse Practitioner; PCP Internal Medicine
DX: B34.9 Viral infection, unspecified (principal); Z20.822 Contact with and (suspected) exposure to COVID-19; K21.9 Gastro-esophageal reflux disease without esophagitis
CPT/HCPCS: 87081; 87426; 87804; 87880; 99213; C9803; G0463

== ENCOUNTER 2022-10-11 08:36 | Outpatient (CLI) | payer MEDICARE, SELFPAY ==
--- NOTE | ~2022-10-11 | US_ITS ---
US abdomen complete DATE: 10/11/2022 09:29 INDICATION: Epigastric abdominal pain TECHNIQUE: Real-time imaging and Doppler analysis COMPARISON: 04/26/2020 CT abdomen pelvis 05/23/2017 abdominal ultrasound examination FINDINGS: The pancreas is largely obscured by bowel gas. Status post cholecystectomy. No hepatic space-occupying mass lesion is detected. Normal hepatopedal p ortal venous flow direction. The common bile duct measures 7.5 mm. The right kidney measures approximately 9.7 cm length. There is an approximately 1 cm cyst in the upp er pole right kidney. The left kidney measures approximately 9.7 cm length. No hydronephrosis of either kidney. Normal splenic size. Normal caliber of the abdominal aorta. The inferior vena cava is unremarkable. IMPRESSION: Status post cholecystectomy Common bile duct measures 7.5 mm; recommend correlation with serum bilirubin level Pancreas is obscured by bowel gas Approximately 1 cm upper pole right renal cyst Reviewed, dictated and finalized at Location A. Reviewed, dictated and finalized at location B. IMPRESSION: Status post cholecystectomy Common bile duct measures 7.5 mm; recommend correlation with serum bilirubin le suzette Pancreas is obscured by bowel gas Approximately 1 cm upper pole right renal cyst
--- NOTE | ~2022-10-11 | CT_ITS ---
CT Scan of the Chest without Contrast: Clinical Indication: Lung nodule Technique: Contiguous sections were acquired throughout the chest without intravenous contrast. Dose reduction technique was used on this scan by utilizing automated exposure control and iterative recon struction technique. The dose-length product (DLP) was 111.73 mGy-cm. COMPARISON: 02/20/2021 and 12/05/2018 Findings: There is no evidence of any significant mediastinal, hilar or axillary lymphadenopathy. The mediastin al soft tissues appear normal. There is no evidence of pleural or pericardial effusion. Stable nodules along the right minor fissure noted. Probable minimal chronic interstitial disease, un changed. Images through the upper abdomen reveal no abnormalities. Impression: Stable subcentimeter nodules along the right minor fissure. Minimal chronic interstitial disease, unchanged. Reviewed, dictated and finalized at location . Impression: Stable subcentimeter nodules along the right minor fissure. Minimal chronic interstitial disease, unchanged.
== END 2022-10-11 08:37 | disposition home or self-care (01) ==
PROVIDERS: PCP Internal Medicine; Visit Provider Nurse Practitioner Family
DX: K21.9 Gastro-esophageal reflux disease without esophagitis (principal); R10.13 Epigastric pain; R91.1 Solitary pulmonary nodule; Z90.49 Acquired absence of other specified parts of digestive tract; N28.1 Cyst of kidney, acquired
CPT/HCPCS: 71250; 76700

== ENCOUNTER 2022-10-25 11:42 | Outpatient (CLI) | payer MEDICARE, SELFPAY ==
--- NOTE | ~2022-10-25 | US_ITS ---
EXAMINATION: US venous doppler [facility] DATE: 10/25/2022 12:36 INDICATION: Left lower limb edema. TECHNIQUE: Grayscale ultrasound images without and with compression and Doppler ultrasound images of the left lower extremity veins were obtained. COMPARISON: None. FINDINGS: The visualized portions of left common femoral vein, profunda (deep) femoral vein, femoral vein, popl iteal vein, peroneal veins, posterior tibial veins, and greater saphenous vein outflow are patent. IMPRESSION: 1. No deep venous thrombosis. Reviewed, dictated and finalized at location A.
== END 2022-10-25 11:43 | disposition home or self-care (01) ==
PROVIDERS: PCP Internal Medicine; Visit Provider Internal Medicine Cardiovascular Disease
DX: R60.9 Edema, unspecified (principal)
CPT/HCPCS: 93971

== ENCOUNTER 2023-03-27 13:11 | Emergency (ER) | payer MEDICARE, SELFPAY ==
--- NOTE | ~2023-03-27 | XR_ITS ---
XR chest 2V DATE: 03/27/2023 14:12 INDICATION: Productive cough for 2 days. Nonsmoker. TECHNIQUE: 2 views COMPARISON: 10/11/2022 CT chest 11/04/2021 PA and lateral chest FINDINGS: Aortic arch calcification, mild aortic unfolding. No hilar or mediastinal enlargement. Hear t size appears within normal range. No pulmonary infiltrate or consolidation, pleural effusion or pulmonary vascular congestion or pneumo thorax is detected. Chronic mild elevation of right leaf of diaphragm anteriorly, likely due to event ration. Surgical clips, right upper quadrant, consistent with cholecystectomy. IMPRESSION: No active disease or significant change since 11/04/2021 Reviewed, dictated and finalized at location A.
[2023-03-27 13:24] VITALS: BP 138/78; PULSE 80; RESP 16; TEMP 36.9; O2SAT 100
--- NOTE | 2023-03-27 14:00 | ED.URI ---
HPI - URI/Sore Throat General Chief Complaint: Upper Respiratory Infection Stated Complaint: Fever, Short of Breath Time Seen by Provider: 03/27/23 13:51 Source: patient and RN notes reviewed Mode of arrival: ambulatory Limitations: no limitations History of Present Illness HPI Narrative: Patient presents today with a 4 day history of cough, scratchy throat, body aches, shortness of breath. Denies fever. Denies known sick contacts. He has been using [id number] cough medicine without relief. He also took a COVID-19 test at onset of symptoms that was negative. He is a nonsmoker. States many years ago he may have been diagnosed with COPD, but does not use any inhalers or medications. Related Data Home Medications Medication Instructions Recorded Confirmed omeprazole 40 mg capsule,delayed 40 mg PO DAILY 03/27/23 03/27/23 release Allergies Allergy/AdvReac Type Severity Reaction Status Date / Time No Known Allergies Allergy Verified 03/27/23 13:28 Review of Systems Review of Systems: CONSTITUTIONAL: Denies fever, chills, or sweats.+ body aches EYES: Denies visual changes, redness, or discharge. ENT: Denies rhinorrhea, congestion, sore throat, or otalgia.+ scratchy throat CARDIOVASCULAR: Denies chest pain, palpitations, or edema. RESPIRATORY: + cough, shortness of breath GASTROINTESTINAL: Denies abdominal pain, nausea, vomiting, or diarrhea. GENITOURINARY: Denies dysuria or hematuria. SKIN: Denies rash, itching, or wounds. MUSCULOSKELETAL: Denies back pain, joint pain, or myalgia. NEUROLOGIC: Denies headache, numbness, tingling, or weakness. PSYCH: Denies depression or anxiety. [facility] Past Medical History Medical History Acid reflux Colon cancer screening Epigastric pain Family History Family History Sibling Hypertension Social History Social History Smoking status: Never smoker Second hand tobacco smoke exposure: Yes Alcohol intake: current Alcohol use details: rarely-wine Substance use: never Substance use type: does not use Lack of Transportation: No Lack of Food: Never True Current Housing: I Have Housing Concerned About Future Housing: No Difficulty Paying Gas/Electric Bills: No Difficulty Paying for Meds: No Currently Unemployed: Decline to Answer Education: Associate Degree Difficulty w/ Childcare or Family Care: Decline to Answer Living arrangements: alone Gender identity (if verbalized by the patient): Male Spiritual care concerns: No Comments At time of signature, I have reviewed and agree with nursing past medical, surgical, social and family history unless otherwise noted. Please see nursing chart for further information. There is no relevant family history pertinent to the presenting complaint Exam Narrative: GENERAL: Well-appearing, well-nourished, and in no acute distress. HEAD: Normocephalic, atraumatic. EYES: EOMI. No redness or drainage. Conjunctivae normal. ENT: Mucous membranes pink and moist. Nares congested with rhinorrhea. TMs normal bilaterally. Throat mildly erythematous with small amount of postnasal drainage. Uvula midline. NECK: Normal AROM. Supple. No lymphadenopathy. CHEST: No respiratory distress. Clear to auscultation. HEART: Regular rate and rhythm. No murmur appreciated. Normal peripheral pulses. EXTREMITIES: Normal range of motion. No edema. SKIN: Warm, dry, no rash. Capillary refill normal. Normal skin turgor. NEURO: No focal deficits. Alert and oriented x3. Gait steady. PSYCH: Normal affect. No signs of depression or anxiety. Course Course Level of Care: Express Care Visit Vital Signs Vital signs: Vital Signs Temperature 98.4 F 03/27/23 13:24 Pulse Rate 80 03/27/23 13:24 Respiratory Rate 16 03/27/23 13
== END 2023-03-27 14:53 | disposition home or self-care (01) ==
PROVIDERS: Emergency Provider Nurse Practitioner
DX: J40 Bronchitis, not specified as acute or chronic (principal); K21.9 Gastro-esophageal reflux disease without esophagitis
CPT/HCPCS: 71046; 99213; G0463

== ENCOUNTER 2023-04-05 11:32 | Outpatient (CLI) | payer MEDICARE, SELFPAY ==
--- NOTE | ~2023-04-05 | XR_ITS ---
EXAMINATION: XR hip BI 2V w AP pelvis DATE: 04/05/2023 11:58 INDICATION: Bilateral hip pain TECHNIQUE: AP view the pelvis and two views of each hip were obtained. COMPARISON: 11/03/2003 FINDINGS: There is mild osteoarthritis of the hips. Bone alignment is normal. There is no fracture. T here are phleboliths of the pelvis. IMPRESSION: 1. Mild osteoarthritis of the hips. Reviewed, dictated and finalized at location L.
== END 2023-04-05 11:33 | disposition home or self-care (01) ==
LOC: ANHIMG 11:35
PROVIDERS: PCP Family Medicine; Visit Provider Family Medicine
DX: M16.0 Bilateral primary osteoarthritis of hip (principal)
CPT/HCPCS: 73521

== ENCOUNTER 2023-04-06 08:20 | Outpatient (CLI) | payer MEDICARE, SELFPAY ==
[2023-04-06 09:13] LABS: Basophils Absolute Auto 0.1 K/mm3 (0.0-0.1); Basophils Percent Auto 0.4 % (0.2-1.2); Eosinophils Absolute Auto 0.3 K/mm3 (0-0.3); Eosinophils Percent Auto 1.9 % (0-4.4); Hematocrit 44.6 % (42.0-52.0); Hemoglobin 15.2 g/dL (14.0-18.0); Immature Granulocyte Absolute 0.12 K/mm3 (0.00-0.031); Immature Granulocyte Percent A 0.9 % (0-0.5); Lymphocytes Absolute Auto 2.85 K/mm3 (0.9-3.2); Lymphocytes Percent Auto 20.5 % (18.3-44.2); Mean Corpuscular HGB Conc 34.1 g/dl (32-36); Mean Corpuscular Hemoglobin 33.8 pg (26-34); Mean Corpuscular Volume 99.1 fl (80-100); Mean Platelet Volume 11.4 fl (7.4-10.4); Monocytes Absolute Auto 1.3 K/mm3 (0.1-0.6); Monocytes Percent Auto 9.3 % (2.6-8.5); Neutrophils Absolute Auto 9.3 K/mm3 (1.3-6.7); Platelet Count Result 165 k/mm3 (150-375); Red Cell Distribution Width 13.7 % (11.5-14.5); White Blood Count 13.9 K/mm3 (4.5-10.0)
[2023-04-06 09:27] LABS: Cholesterol 185 mg/dL (0-200); HDL Direct 37 mg/dL; Triglycerides 155 mg/dL (<150)
[2023-04-06 09:34] LABS: Alanine Aminotransferase 29 U/L (6-50); Albumin Level 3.9 g/dL (3.5-5.1); Alkaline Phosphatase 63 U/L (38-126); Anion Gap 0 mmol/L (8-16); Aspartate Amino Transferase 21 U/L (17-59); Blood Urea Nitrogen 16 mg/dL (9-20); Calcium 8.9 mg/dL (8.4-10.2); Carbon Dioxide 34 mmol/L (22-30); Chloride 101 mmol/L (98-107); Estimated Glomerular Filt Rate > 60; Glucose 98 mg/dL (65-110); Sodium 135 mmol/L (137-145)
[2023-04-06 09:38] LABS: LDL Cholesterol Direct 101 mg/dL
[2023-04-10 14:21] LABS: Testosterone Free 41.2 pg/mL (30.0-135.0); Testosterone Total 234 ng/dL (250-1100)
== END 2023-04-06 08:21 | disposition home or self-care (01) ==
PROVIDERS: PCP Family Medicine; Visit Provider Family Medicine
DX: E29.1 Testicular hypofunction (principal); I87.2 Venous insufficiency (chronic) (peripheral); R60.9 Edema, unspecified; Z79.899 Other long term (current) drug therapy
CPT/HCPCS: 36415; 80053; 80061; 84402; 84403; 85025

== ENCOUNTER 2023-05-23 14:39 | Outpatient (CLI) | payer MEDICARE, SELFPAY ==
--- NOTE | ~2023-05-23 | MR_ITS ---
EXAMINATION: MR brain IAC wo/w con DATE: 05/23/2023 15:59 INDICATION: Bilateral tinnitus, headaches and dizziness TECHNIQUE: Magnetic resonance imaging (MRI) of the brain and brainstem was performed without and with 20 mL Multihance intravenous contrast. Sequences included sagittal and axial T1-weighted FSE, axial diffusion-weighted FS EPI, axial SWAN, axial T2-weighted FLAIR Propeller, axial T2-weighted Propeller , small bsjkr-vw-ylxv coronal FIESTA, small huxlh-ni-qspi coronal T1-weighted FSE, and small field-of -view axial T1-weighted SPGR. Postcontrast sequences included axial T1-weighted FSE, small field-of-v iew coronal T1-weighted FSE, and small ybsxi-ig-wqlt axial T1-weighted SPGR. Apparent diffusion coeff icient (ADC) maps were created. . COMPARISON: Sinus CT dated 08/27/2020 FINDINGS: There is a moderate-sized extra-axial hematoma overlying the right frontal and parietal lobes which m easures 11 cm AP, 7 cm craniocaudally and 1.4 cm in thickness with heterogeneous increased T2 and inc reased T1 signal. The collection appears to extend slightly across the scar of the coronal suture whi ch would favor a subdural hematoma. No evident active contrast extravasation. This results in mild ma ss effect upon the gyri in the right parietal lobe. No midline shift or uncal herniation. Ventricles remain normal and symmetric. Symmetric prominence of the sulci and and subarachnoid spaces overlying the convexities consistent with mild to moderate age-appropriate diffuse cerebral volume loss. There are no areas of restricted diffusion to suggest acute infarction. No intracranial masses or abnormall y enhancing intraparenchymal lesions. There are few scattered small foci of increased T2-weighted sig nal intensity in the cerebral white matter which is within normal limits for age and likely sequela o f chronic small vessel ischemic disease. No foci of intraparenchymal susceptibility artifact to sugge st prior intraperitoneal hemorrhage. The ventricles are symmetric and normal in size. Normal seventh/ eighth cranial nerve complexes. No cerebellopontine angles masses. Trace right mastoid effusion. No fluid in the bilateral middle ear cavities or left mastoid air cells. Flow voids are seen in the cere bral arteries on the T2-weighted sequences consistent with their expected patency. Mild mucosal thick ening in the bilateral ethmoid and right maxillary sinuses. Visualized orbits and soft tissues are un remarkable. IMPRESSION: 1. 11 x 7 x 1.4 cm likely relatively recent but age indeterminate right frontoparietal subdural hemat misael. Patient was notified of the findings and accompanied to the emergency department for further neymar luation. 2. Trace right mastoid effusion. Otherwise unremarkable imaging of the internal auditory canals and t emporal bones. 3. Age-related changes in the brain including mild diffuse volume loss and mild scattered white matte r T2 hyperintensity likely sequela of chronic small vessel ischemic disease. Reviewed, dictated and finalized at location A. ABRICATED HOUSES TRIMMER IMPRESSION: 1. 11 x 7 x 1.4 cm likely relatively recent but age indeterminate right frontop arietal subdural hematoma. Patient was notified of the findings and accompanied to the emergency department for further evaluation. 2. Trace right mastoid effusion. Otherwise unremarkable imaging of the internal auditory canals and temporal bones. 3. Age-related changes in the brain including mild diffuse volume loss and mild scattered white matter T2 hyperintensity likely sequela of chronic small vesse l ischemic disease.
== END 2023-05-23 14:40 | disposition home or self-care (01) ==
PROVIDERS: PCP Family Medicine; Visit Provider Nurse Practitioner Family
DX: H93.13 Tinnitus, bilateral (principal); H53.9 Unspecified visual disturbance; J32.9 Chronic sinusitis, unspecified; R26.89 Other abnormalities of gait and mobility; R42 Dizziness and giddiness; R68.89 Other general symptoms and signs; R93.0 Abnormal findings on diagnostic imaging of skull and head, not elsewhere classified
CPT/HCPCS: 70553; A9577

== ENCOUNTER 2023-05-23 16:15 | Emergency (ER) | payer MEDICARE, SELFPAY ==
--- NOTE | ~2023-05-23 | CT_ITS ---
EXAMINATION: CT brain wo con DATE: 05/23/2023 16:50 INDICATION: head injury . TECHNIQUE: Computed tomography (CT) of the head was performed without intravenous contrast. The mA wa s adjusted according to patient size. Iterative reconstruction technique was employed. The dose-lengt h product was 605.33 mGy-cm. COMPARISON: MR brain, same date. FINDINGS: Redemonstration of the right frontoparietal, mixed density extra-axial, unchanged given interval diff erence in technique. Persistent mild sulcal effacement in the right hemisphere near the vertex. No hydrocephalus, mass, or herniation. No acute ischemic infarct. Unremarkable dural venous sinus attenuation. No acute osseous abnormality. The aerated spaces are clear. Mild atrophy and chronic white matter change. Atherosclerotic intracranial calcification. Prominent C SF density extra-axial spaces. IMPRESSION: Stable right frontoparietal extra-axial hemorrhage, possibly acute or subacute. Reviewed, dictated and finalized at location K. [employer]
[2023-05-23 16:18] VITALS: BP 157/106; PULSE 73; RESP 18; TEMP 36.7; O2SAT 98
--- NOTE | 2023-05-23 17:02 | ED.HA ---
HPI - Headache General Chief Complaint: Headache Stated Complaint: Abnormal labs Time Seen by Provider: 05/23/23 16:19 History of Present Illness HPI Narrative: Patient is a 78-year-old male who presents ER with concern for possible intracranial hemorrhage. Patient received an outpatient MRI today after having a month of headache as well as dizziness and lightheadedness. He reports about 3 weeks ago he did have a fall at night while walking and fell backwards striking his head. No loss of consciousness. He believes his symptoms started prior to this. He is not on any blood thinners and recalls no additional injury to his head. No fevers or chills or sweats. No focal weakness or numbness to an arm or leg. He denies slurred speech but does find that sometimes he has trouble getting out what he wants to say. Denies any alleviating factors. Related Data Home Medications Medication Instructions Recorded Confirmed omeprazole 40 mg capsule,delayed 40 mg PO DAILY 03/27/23 04/29/23 release Allergies Allergy/AdvReac Type Severity Reaction Status Date / Time No Known Allergies Allergy Verified 04/29/23 13:50 Review of Systems Review of Systems: All systems reviewed & are unremarkable except as noted in HPI and below Constitutional: Constitutional: Denies chills, Denies fatigue and Denies fever(s) Eyes: Eyes: Denies change in vision and Denies photophobia Neurologic: Denies syncope, Reports headache(s), Denies focal weakness and Denies numbness Comments: Occasional difficulty getting out words, lightheadedness. [facility] Past Medical History Medical History (Updated 05/23/23 @ 18:31 by Miles Proctor MD) Acid reflux Colon cancer screening Epigastric pain History of high cholesterol Interstitial lung disease PAT (paroxysmal atrial tachycardia) Surgical History Surgical History (Updated 05/23/23 @ 17:06 by Miles Proctor MD) No pertinent past surgical history Family History Family History Sibling Hypertension Social History Social History Smoking status: Never smoker Second hand tobacco smoke exposure: Yes Alcohol intake: current Alcohol use details: rarely-wine Substance use: never Substance use type: does not use Lack of Transportation: No Lack of Food: Never True Current Housing: I Have Housing Concerned About Future Housing: No Difficulty Paying Gas/Electric Bills: No Difficulty Paying for Meds: No Currently Unemployed: Decline to Answer Education: Associate Degree Difficulty w/ Childcare or Family Care: Decline to Answer Living arrangements: alone Gender identity (if verbalized by the patient): Male Spiritual care concerns: No Exam Narrative: GENERAL: Well-appearing, well-nourished, and in no acute distress. HEAD: Normocephalic, atraumatic. ENT: Mucous membranes moist. CHEST: Clear to auscultation. No respiratory distress. HEART: Regular rate and rhythm. Normal peripheral pulses. ABDOMEN: Soft, nontender, nondistended. EXTREMITIES: Normal range of motion. No edema. SKIN: Warm, dry, no rash. NEURO: Alert and oriented x3. PSYCH: Normal mood and affect. Course Course Emergency Course: Patient excepted to [facility] neurosurgical service by Dr. Mak. We are awaiting an inpatient bed. Patient aware of diagnosis and treatment plan and verbalized understanding. Vital Signs Vital signs: Vital Signs Temperature 98.1 F 05/23/23 16:18 Pulse Rate 73 05/23/23 16:18 Respiratory Rate 18 05/23/23 16:18 Blood Pressure 157/106 H 05/23/23 16:18 Pulse Oximetry 98 05/23/23 16:18 Oxygen Delivery Room Air 05/23/23 16:18 Temperature 98.1 F 05/23/23 16:18 Pulse Rate 73 05/23/23 16:18 Respiratory Rate 18 05/23/23 16:18 Blood Pressure 157/106 H 05/23/23 16:18 Pulse Oximetry 98 05/23/23 16:18 Oxygen Delivery
[2023-05-23 18:02] LABS: Basophils Percent Auto 0.4 % (0.2-1.2); Eosinophils Absolute Auto 0.2 K/mm3 (0-0.3); Eosinophils Percent Auto 1.4 % (0-4.4); Hematocrit 43.6 % (42.0-52.0); Hemoglobin 14.4 g/dL (14.0-18.0); Immature Granulocyte Absolute 0.04 K/mm3 (0.00-0.031); Immature Granulocyte Percent A 0.4 % (0-0.5); Lymphocytes Absolute Auto 3.43 K/mm3 (0.9-3.2); Lymphocytes Percent Auto 31.8 % (18.3-44.2); Mean Corpuscular Hemoglobin 33.2 pg (26-34); Mean Corpuscular Volume 100.5 fl (80-100); Mean Platelet Volume 11.8 fl (7.4-10.4); Monocytes Absolute Auto 1.1 K/mm3 (0.1-0.6); Monocytes Percent Auto 10.1 % (2.6-8.5); Neutrophils Percent Auto 55.9 % (45.5-73.1); Platelet Count Result 150 k/mm3 (150-375); Red Blood Count 4.34 M/mm3 (4.6-6.20); Red Cell Distribution Width 13.6 % (11.5-14.5); White Blood Count 10.8 K/mm3 (4.5-10.0)
[2023-05-23 18:10] LABS: Alanine Aminotransferase 25 U/L (6-50); Albumin Level 4.2 g/dL (3.5-5.1); Alkaline Phosphatase 59 U/L (38-126); Anion Gap 6 mmol/L (8-16); Aspartate Amino Transferase 28 U/L (17-59); Bilirubin,Total 1.2 mg/dL (0.2-1.3); Blood Urea Nitrogen 16 mg/dL (9-20); Calcium 9.5 mg/dL (8.4-10.2); Carbon Dioxide 27 mmol/L (22-30); Chloride 104 mmol/L (98-107); Estimated CRCL calculation 57 ml/min; Estimated Glomerular Filt Rate > 60; Glucose 94 mg/dL (65-110); Potassium 4.5 mmol/L (3.4-5.0); Sodium 137 mmol/L (137-145)
[2023-05-23 18:16] LABS: Prothrombin Time 13.5 Seconds (11.1-14.7)
[2023-05-23 18:17] LABS: Partial Thromboplastin Time 30.6 SECONDS (22.3-36.8)
[2023-05-23 18:38] VITALS: BP 147/89; PULSE 74; RESP 18; TEMP 36.6; O2SAT 98
--- NOTE | 2023-05-23 19:23 | PC.NURSE ---
Assumed care from MEGHAN Burnette at this time.
[2023-05-23 19:56] VITALS: BP 141/93; PULSE 72; RESP 19; O2SAT 97
[2023-05-23 21:00] VITALS: BP 137/88; PULSE 70; RESP 13; O2SAT 97
--- NOTE | 2023-05-23 21:28 | PC.NURSE ---
Pt resting comfortably in bed w no requests at this time. Awaiting bed placement at [facility].
--- NOTE | 2023-05-23 22:14 | PC.NURSE ---
Call [facility] at 2210, no beds tonight.
[2023-05-23] MEDS: ACETAMINOPHEN 500 MG TABLET 1000 MG PO (23:21)
[2023-05-23 23:22] VITALS: BP 131/82; PULSE 92; RESP 14; O2SAT 97
[2023-05-24 00:17] VITALS: BP 110/75; PULSE 70; RESP 18; O2SAT 94
--- NOTE | 2023-05-24 05:10 | PC.NURSE ---
ON 05/24/2023 AT 0510 [facility] CALLED AND GAVE ROOM #[id number] FOR THIS PT, AND TO CALL REPORT TO .
[2023-05-24 05:26] VITALS: BP 120/77; PULSE 67; RESP 12; TEMP 36.9; O2SAT 96
== END 2023-05-24 05:30 | disposition short-term general hospital (02) ==
PROVIDERS: Emergency Provider Emergency Medicine; PCP Family Medicine
DX: S06.5XAA Traumatic subdural hemorrhage with loss of consciousness status unknown, initial encounter (principal); K21.9 Gastro-esophageal reflux disease without esophagitis; E78.00 Pure hypercholesterolemia, unspecified; J84.9 Interstitial pulmonary disease, unspecified; W19.XXXA Unspecified fall, initial encounter
CPT/HCPCS: 36415; 70450; 70553; 80053; 85025; 85610; 85730; 99285; A9270; A9577

== ENCOUNTER 2023-06-04 14:15 | Emergency (ER) | payer MEDICARE, SELFPAY ==
[2023-06-04] VITALS (7 sets, daily range): BP systolic 126–169; BP diastolic 79–99; PULSE 74–87; RESP 12–18; TEMP 36.3; O2SAT 96–99
--- NOTE | ~2023-06-04 | XR_ITS ---
EXAMINATION: XR chest 1V portable Exam Date/Time: 06/04/2023 15:00 SHAKE FEEDER HISTORY: NUMBNESS TO LEFT ARM STARTED YESTERDAY Comparison: 03/27/2023. RESULT: Lines, tubes, and devices: Cholecystectomy clips. Lungs and pleura: Senescent change, otherwise clear. Cardiomediastinal silhouette: Stable. Other: No acute osseous or upper abdominal finding. IMPRESSION: No acute cardiopulmonary process. Reviewed, dictated and finalized at location K. E FEEDER
--- NOTE | ~2023-06-04 | CT_ITS ---
EXAMINATION: CT brain wo con DATE: 06/04/2023 14:44 INDICATION: NUMBNESS . TECHNIQUE: Computed tomography (CT) of the head was performed 05/23/2023 intravenous contrast. The mA was adjusted according to patient size. Iterative reconstruction technique was employed. The dose-tammy gth product was 756.67 mGy-cm. COMPARISON: None. FINDINGS: Slightly smaller and normally evolving right frontoparietal extra-axial hemorrhage. No new acute acut e intracranial hemorrhage or extra-axial fluid collection. Prominent CSF density extra-axial spaces. No hydrocephalus, mass, or herniation. No acute ischemic infarct. Unremarkable dural venous sinus attenuation. No acute osseous abnormality. The aerated spaces are clear. Mild atrophy and chronic white matter change. Atherosclerotic intracranial calcification. IMPRESSION: No acute intracranial process. Improving subacute frontoparietal extra-axial hemorrhage. Reviewed, dictated and finalized at location K. ILLMENT SPECIALIST
--- NOTE | ~2023-06-04 | CT_ITS ---
EXAMINATION: CTA brain carotid DATE: 06/04/2023 15:00 INDICATION: NEURO TECHNIQUE: Computed tomographic angiography (CTA) of the head and neck was performed with 100 mL Omni paque-350 intravenous contrast. Automated exposure control and iterative reconstruction technique wer e employed. The dose-length product was 1190.52 mGy-cm. Maximum intensity projection and volume rende red 3D-reconstructions were created by the technologist on a separate workstation. COMPARISON: CT brain same date. FINDINGS: CTA HEAD: No large vessel occlusion, aneurysm, high flow vascular malformation, nidus or extravasation. CTA NECK: Aortic arch and proximal great vessels: Normal arch anatomy. Minimal arch calcification. Right common carotid, carotid bifurcation, and internal carotid artery: Minimal noncalcified plaque a t the bifurcation.There is 0% stenosis of the proximal right internal carotid artery relative to norm al distal artery lumen diameter (NASCET criteria). Left common carotid, carotid bifurcation, and internal carotid artery: Minimal calcified plaque at th e bifurcation.There is 0% stenosis of the proximal left internal carotid artery relative to normal di stal artery lumen diameter (NASCET criteria). Vertebral arteries: No significant plaque or stenosis. Vertebral arteries co-dominant. Other findings: None. IMPRESSION: No large vessel occlusion. No significant carotid or vertebral artery stenosis. Reviewed, dictated and finalized at location K. TRY HUSBANDRY TEACHER
--- NOTE | 2023-06-04 14:26 | ECG_ITS ---
Measurements Intervals [place] Rate: 77 P: 19 DE: 174 QRS: -26 QRSD: 113 T: 6 QT: 387 QTc: 439 Interpretive Statements SINUS RHYTHM INTRAVENTRICULAR CONDUCTION DELAY DELAYED PRECORDIAL R/S TRANSITION BORDERLINE T WAVE ABNORMALITY- INFERIOR LEADS BORDERLINE ECG COMPARED TO ECG 11/04/2021 13:09:34 INTRAVENTRICULAR CONDUCTION DELAY NOW PRESENT Electronically Signed On 06-04-2023 16:29:22 HORSES OR MULES TEAMSTER by René Asif D.O.
--- NOTE | 2023-06-04 14:35 | PC.NURSE ---
Pt to CT scan via w/c following stroke stop w/ Dr Proctor.
[2023-06-04 14:38] LABS: Basophils Percent Auto 0.4 % (0.2-1.2); Eosinophils Absolute Auto 0.1 K/mm3 (0-0.3); Eosinophils Percent Auto 1.5 % (0-4.4); Hematocrit 44.2 % (42.0-52.0); Hemoglobin 14.6 g/dL (14.0-18.0); Immature Granulocyte Absolute 0.03 K/mm3 (0.00-0.031); Immature Granulocyte Percent A 0.4 % (0-0.5); Lymphocytes Absolute Auto 2.36 K/mm3 (0.9-3.2); Lymphocytes Percent Auto 32.5 % (18.3-44.2); Mean Corpuscular Volume 99.8 fl (80-100); Mean Platelet Volume 11.6 fl (7.4-10.4); Monocytes Absolute Auto 0.8 K/mm3 (0.1-0.6); Monocytes Percent Auto 10.6 % (2.6-8.5); Neutrophils Percent Auto 54.6 % (45.5-73.1); Platelet Count Result 196 k/mm3 (150-375); Red Blood Count 4.43 M/mm3 (4.6-6.20); Red Cell Distribution Width 13.2 % (11.5-14.5); White Blood Count 7.3 K/mm3 (4.5-10.0)
--- NOTE | 2023-06-04 14:43 | ED.NEUROSD ---
HPI - Neuro Symptoms/Deficit General Chief Complaint: Neuro Symptoms/Deficit Stated Complaint: Left Arm Numbness, Start Yesterday Time Seen by Provider: 06/04/23 14:31 History of Present Illness HPI Narrative: Patient is a 78-year-old male who presents ER with left arm numbness and weakness. Patient reports yesterday at 10:30 a.m. he had left leg numbness from his buttock down to his knee that improved after 30 minutes. Then it 2:00 p.m. in the afternoon he had sudden-onset paralysis and numbness of his left upper extremity. He had slow return of the function of the arm but still reports that he has some numbness. He is unsure if he has any dysarthria. He recently had a subdural hemorrhage that underwent intervention at [facility] to prevent a slow leak. He denies any trauma. No change in symptoms today. Related Data Home Medications Medication Instructions Recorded Confirmed omeprazole 40 mg capsule,delayed 40 mg PO DAILY 03/27/23 04/29/23 release Allergies Allergy/AdvReac Type Severity Reaction Status Date / Time No Known Allergies Allergy Verified 06/04/23 15:09 Review of Systems Review of Systems: All systems reviewed & are unremarkable except as noted in HPI and below Constitutional: Constitutional: Reports no additional constitutional complaints ENT: Reports system reviewed and no additional complaints, except as documented Cardiovascular: Cardiovascular: Reports no additional cardiovascular complaints Respiratory: Respiratory: Reports no additional respiratory complaints Gastrointestinal: Gastrointestinal: Reports no additional gastrointestinal complaints Neurologic: Denies syncope, Denies headache(s), Reports focal weakness and Reports numbness PMFSH Past Medical History Medical History Acid reflux Colon cancer screening Epigastric pain History of high cholesterol Interstitial lung disease PAT (paroxysmal atrial tachycardia) Surgical History Surgical History No pertinent past surgical history Family History Family History Sibling Hypertension Social History Social History Smoking status: Never smoker Second hand tobacco smoke exposure: Yes Alcohol intake: current Alcohol use details: rarely-wine Substance use: never Substance use type: does not use Lack of Transportation: No Lack of Food: Never True Current Housing: I Have Housing Concerned About Future Housing: No Difficulty Paying Gas/Electric Bills: No Difficulty Paying for Meds: No Currently Unemployed: Decline to Answer Education: Associate Degree Difficulty w/ Childcare or Family Care: Decline to Answer Living arrangements: alone Gender identity (if verbalized by the patient): Male Spiritual care concerns: No Exam Narrative: GENERAL: Well-appearing, well-nourished, and in no acute distress. HEAD: Normocephalic, atraumatic. EYES: PERRL and EOMI. ENT: Mucous membranes moist. CHEST: Clear to auscultation. No respiratory distress. HEART: Regular rate and rhythm. Normal peripheral pulses. ABDOMEN: Soft, nontender, nondistended. EXTREMITIES: Normal range of motion. No edema. SKIN: Warm, dry, no rash. NEURO: Alert and oriented x3. Decreased pinprick left upper extremity. PSYCH: Normal mood and affect. Course Course Emergency Course: Patient resting comfortably. Discussed results with [facility] neurosurgical team. Patient accepted by Dr. Leo. Is recommended patient received 1 g of Keppra, be kept NPO, and receive Keppra 1 g b.i.d.. Vital Signs Vital signs: Vital Signs Temperature 97.3 F L 06/04/23 14:22 Pulse Rate 87 06/04/23 14:22 Respiratory Rate 18 06/04/23 14:22 Blood Pressure 169/99 H 06/04/23 14:22 Pulse Oximetry 98 06/04/23 14:22 Oxygen Deliver
[2023-06-04 14:44] LABS: Estimated CRCL calculation 45 ml/min; Estimated Glomerular Filt Rate > 60
[2023-06-04 14:48] LABS: Alanine Aminotransferase 32 U/L (6-50); Albumin Level 4.4 g/dL (3.5-5.1); Alkaline Phosphatase 65 U/L (38-126); Anion Gap 10 mmol/L (8-16); Aspartate Amino Transferase 26 U/L (17-59); Bilirubin,Total 0.9 mg/dL (0.2-1.3); Blood Urea Nitrogen 15 mg/dL (9-20); Calcium 9.6 mg/dL (8.4-10.2); Carbon Dioxide 27 mmol/L (22-30); Chloride 103 mmol/L (98-107); Estimated CRCL calculation 49 ml/min; Estimated Glomerular Filt Rate > 60; Glucose 82 mg/dL (65-110); Potassium 4.1 mmol/L (3.4-5.0); Sodium 140 mmol/L (137-145)
[2023-06-04 14:53] LABS: Prothrombin Time 13.6 Seconds (11.1-14.7)
[2023-06-04 14:54] LABS: Partial Thromboplastin Time 29.6 SECONDS (22.3-36.8)
[2023-06-04 15:00] LABS: Troponin I < 0.012 ng/mL (0.000-0.034)
--- NOTE | 2023-06-04 15:10 | PC.NURSE ---
BS 76
[2023-06-04 15:15] LABS: Glucose Point of Care 76 mg/dl (65-105)
[2023-06-04] MEDS: levETIRAcetam 1000MG/NACL100ML 1,000 MG/100 ML BAG 400 MG IVPB (16:19)
--- NOTE | 2023-06-04 16:57 | PC.NURSE ---
accepted by [facility] [phone] # Dr Germain
== END 2023-06-04 19:13 | disposition short-term general hospital (02) ==
PROVIDERS: Emergency Provider Emergency Medicine; PCP Family Medicine
DX: R56.9 Unspecified convulsions (principal); E78.00 Pure hypercholesterolemia, unspecified; J84.9 Interstitial pulmonary disease, unspecified; K21.9 Gastro-esophageal reflux disease without esophagitis; Z86.73 Personal history of transient ischemic attack (TIA), and cerebral infarction without residual deficits; I45.9 Conduction disorder, unspecified; R94.31 Abnormal electrocardiogram [ECG] [EKG]
CPT/HCPCS: 36415; 70450; 70496; 70498; 71045; 80053; 82948; 84484; 85025; 85610; 85730; 93005; 96365; 99285; J1953; Q9967

== ENCOUNTER 2023-09-05 14:01 | Outpatient (CLI) | payer MEDICARE, SELFPAY ==
--- NOTE | ~2023-09-05 | XR_ITS ---
EXAM: XR ankle RT 2V, XR foot RT 2V DATE: 09/05/2023 14:39 HISTORY: Pain, right ankle and foot. COMPARISON: None available. FINDINGS: Normal mineralization. No fracture or dislocation. No lytic or blastic lesion. Mild tibiot alar and moderate first MTP joint osteoarthritis. Prominent os trigonum and os cuboidium. Os navicula ris. No erosion or periosteal change. Moderate soft tissue swelling about the ankle. No ankle joint f luid. IMPRESSION: No acute osseous finding in the right foot or right ankle. 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 Moderate ankle soft tissue swelling. No ankle joint effusion. Reviewed, dictated and finalized at location K. MBLER BILLIARD TABLE IMPRESSION: No acute osseous finding in the right foot or right ankle. 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 Moderate ankle soft tissue swelling. No ankle joint effusion.
== END 2023-09-05 14:02 | disposition home or self-care (01) ==
LOC: ANHIMG 14:03
PROVIDERS: PCP Family Medicine; Visit Provider Nurse Practitioner Family
DX: M25.471 Effusion, right ankle (principal); M79.671 Pain in right foot
CPT/HCPCS: 73600; 73620

== ENCOUNTER 2023-12-13 13:45 | Outpatient (CLI) | payer MEDICARE, SELFPAY ==
[2023-12-13 14:40] LABS: Hematocrit 43.3 % (42.0-52.0); Hemoglobin 14.3 g/dL (14.0-18.0); Mean Corpuscular Hemoglobin 33.3 pg (26-34); Mean Corpuscular Volume 100.9 fl (80-100); Mean Platelet Volume 11.5 fl (7.4-10.4); Platelet Count Result 169 k/mm3 (150-375); Red Blood Count 4.29 M/mm3 (4.6-6.20); Red Cell Distribution Width 13.2 % (11.5-14.5); White Blood Count 7.8 K/mm3 (4.5-10.0)
[2023-12-13 17:23] LABS: Alanine Aminotransferase 27 U/L (6-50); Albumin Level 4.1 g/dL (3.5-5.1); Alkaline Phosphatase 68 U/L (38-126); Anion Gap 5 mmol/L (4-12); Aspartate Amino Transferase 21 U/L (17-59); Bilirubin,Total 0.7 mg/dL (0.2-1.3); Blood Urea Nitrogen 16 mg/dL (9-20); Calcium 9.4 mg/dL (8.4-10.2); Carbon Dioxide 27 mmol/L (22-30); Chloride 107 mmol/L (98-107); Estimated Glomerular Filt Rate > 60; Glucose 104 mg/dL (65-110); Sodium 139 mmol/L (137-145)
[2023-12-13 17:52] LABS: Prostate Specific Antigen 1.7 ng/mL (< OR = 4.0)
[2023-12-16 11:53] LABS: Testosterone Free 32 pg/mL (30.0-135.0); Testosterone Total 205 ng/dL (250-1100)
== END 2023-12-13 13:46 | disposition home or self-care (01) ==
LOC: ANHLAB 13:53
PROVIDERS: PCP Nurse Practitioner Family; Visit Provider Family Medicine
DX: Z12.5 Encounter for screening for malignant neoplasm of prostate (principal); M25.562 Pain in left knee; M25.519 Pain in unspecified shoulder; E29.1 Testicular hypofunction; I47.10 Supraventricular tachycardia, unspecified; J84.9 Interstitial pulmonary disease, unspecified; R79.89 Other specified abnormal findings of blood chemistry; J32.9 Chronic sinusitis, unspecified; I87.2 Venous insufficiency (chronic) (peripheral); R07.9 Chest pain, unspecified; R39.12 Poor urinary stream
CPT/HCPCS: 36415; 73562; 80053; 84153; 84402; 84403; 85027; G0103

== ENCOUNTER 2024-01-09 01:14 | Day surgery (SDC) | payer MEDICARE, SELFPAY ==
[2023-12-22 13:53] VITALS: BMI 27.6
[2024-01-09 11:43] VITALS: BP 136/79; PULSE 71; RESP 16; TEMP 36.5; O2SAT 99; BMI 28.4
[2024-01-09] MEDS: LACTATED RINGERS 1,000 ML 150 ML IV CONT (11:54)
--- NOTE | 2024-01-09 12:12 | WPDANESEPPF ---
Anes - Initial Pre Proc Eval Procedure: Operation Date: 01/09/24 13:00 Proposed Procedures p Colonoscopy - Nain Ronquillo MD Date/Time: 01/09/24 12:12 Surgeon: Nain Ronquillo MD Pre Op Diagnosis: Positive Cologuard Patient Data Age: 78 Gender: M Height: 1.7 m Weight: 82.4 kg Last Vital Signs Temp 97.7 F 01/09/24 11:43 Pulse 71 01/09/24 11:43 Resp 16 01/09/24 11:43 BP 136/79 01/09/24 11:43 Pulse Ox 99 01/09/24 11:43 O2 Del Method Room Air 01/09/24 11:43 Allergies Allergy/AdvReac Type Severity Reaction Status Date / Time No Known Allergies Allergy Verified 01/09/24 11:42 Home Medications Medication Instructions Recorded Confirmed Type syringe with needle, safety 3 mL #15 ea 04/12/23 01/09/24 Rx 23 gauge x 1 (BD Integra Syringe) levetiracetam 1,000 mg tablet 1,000 mg PO Q12H 06/13/23 01/09/24 History (Keppra) syringe with needle, safety 3 mL #14 ea 10/05/23 01/09/24 Rx 23 gauge x 1 (Easy Touch FlipLock Syringe) tamsulosin 0.4 mg capsule 0.4 mg PO DAILY #90 caps 10/05/23 01/09/24 Rx Patient hx anesthesia problems: none Family hx anesthesia problems: none Results Review: All pre-operative results and documents have been reviewed as part of the pre-operative evaluation. [facility] Past Medical History Medical History Acid reflux Colon cancer screening Epigastric pain History of high cholesterol Interstitial lung disease PAT (paroxysmal atrial tachycardia) Surgical History Surgical History No pertinent past surgical history Family History Family History Sibling Hypertension Social History Social History Smoking status: Never smoker Second hand tobacco smoke exposure: Yes Alcohol intake: current Drinks per week: 1 Alcohol use details: WINE Substance use: never Substance use type: does not use Lack of Transportation: No Lack of Food: Never True Current Housing: I Have Housing Concerned About Future Housing: No Difficulty Paying Gas/Electric Bills: No Difficulty Paying for Meds: No Currently Unemployed: Decline to Answer Education: Associate Degree Difficulty w/ Childcare or Family Care: Decline to Answer Living arrangements: alone Gender identity (if verbalized by the patient): Male Spiritual care concerns: No Anes - Eval Final PreProcedure Day of Procedure 01/09/24 12:12 Patient weight: overweight Heart: regular rate and rhythm Lungs: clear to auscultation Airway: Mallampati scale class II Neurological: alert and oriented Last oral intake: >/= 8 hours ASA classification: III Emergent: no Anesthetic plan: proceed Anesthesia type and monitoring: general GIVS and standard monitoring Results Review: All pre-operative results and documents have been reviewed as part of the pre-operative evaluation. 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 Informed Consent: The patient's anesthetic plan and its attendant risks and benefits were discussed with the patient/family/POA. Questions were solicited and answers provided to the satisfaction of the patient/family/POA.
--- NOTE | 2024-01-09 12:37 | PM.HPGS ---
History of Present Illness History of Present Illness Consent: Risks, benefits, and alternatives have been discussed and questions answered. Patient agrees to proceed with procedure. Chief complaint: Positive Cologuard Narrative: Modesto Atwood is a 78 year old male here for + cologuard, last colonoscopy 2004 Review of Systems Review of Systems: All systems reviewed & are unremarkable except as noted in HPI and below PMFSH Past Medical History Medical History Acid reflux Colon cancer screening Epigastric pain History of high cholesterol Interstitial lung disease PAT (paroxysmal atrial tachycardia) Surgical History Surgical History No pertinent past surgical history Family History Family History Sibling Hypertension Social History Social History Smoking status: Never smoker Second hand tobacco smoke exposure: Yes Alcohol intake: current Drinks per week: 1 Alcohol use details: WINE Substance use: never Substance use type: does not use Lack of Transportation: No Lack of Food: Never True Current Housing: I Have Housing Concerned About Future Housing: No Difficulty Paying Gas/Electric Bills: No Difficulty Paying for Meds: No Currently Unemployed: Decline to Answer Education: Associate Degree Difficulty w/ Childcare or Family Care: Decline to Answer Living arrangements: alone Gender identity (if verbalized by the patient): Male Spiritual care concerns: No Meds Home Medications and Allergies Home Medications Medication Instructions Recorded Confirmed Type syringe with needle, safety 3 mL #15 ea 04/12/23 01/09/24 Rx 23 gauge x 1 (BD Integra Syringe) levetiracetam 1,000 mg tablet 1,000 mg PO Q12H 06/13/23 01/09/24 History (Keppra) syringe with needle, safety 3 mL #14 ea 10/05/23 01/09/24 Rx 23 gauge x 1 (Easy Touch FlipLock Syringe) tamsulosin 0.4 mg capsule 0.4 mg PO DAILY #90 caps 10/05/23 01/09/24 Rx Allergies Allergy/AdvReac Type Severity Reaction Status Date / Time No Known Allergies Allergy Verified 01/09/24 11:42 Vital Signs Vital Signs - 24 hr 01/09/24 11:43 Temperature 97.7 F Pulse Rate 71 Respiratory Rate 16 Blood Pressure 136/79 Pulse Oximetry 99 Oxygen Delivery Room Air Exam Const: General: comfortable and no acute distress HENMT: Face/Nose/Sinus: Normal nares present Eyes: General: appearance normal, both eyes and all related structures Neck: Neck: no JVD Resp: Auscultation: clear to auscultation bilaterally Cardio: Rate: regular rate Rhythm: regular rhythm GI: Inspection: non-distended GI Palp: Yes Soft to palpation Skin: General skin exam: normal color Neuro: General: gait normal Speech: normal speech Extrem: General: normal to inspection Psych: Mental Status: mental status grossly normal Assessment and Plan Assessment and plan (1) Positive colorectal cancer screening using Cologuard test: Code(s): R19.5 - Other fecal abnormalities Status: Acute Assessment and Plan: colonoscopy
[2024-01-09 12:59] VITALS: BP 100/59; PULSE 59; RESP 20; O2SAT 97
[2024-01-09 13:09] VITALS: BP 102/63; PULSE 54; RESP 16; O2SAT 100
[2024-01-09 13:19] VITALS: BP 122/73; PULSE 62; RESP 20; O2SAT 100
== END 2024-01-09 13:31 | disposition home or self-care (01) ==
PROVIDERS: PCP Family Medicine; Visit Provider Internal Medicine Gastroenterology
PROC: 0DJD8ZZ Inspection of Lower Intestinal Tract, Via Natural or Artificial Opening Endoscopic (ICD-10-PCS; CPT 45378; principal; 2024-01-09 13:00)
DX: K63.5 Polyp of colon (principal); K57.30 Diverticulosis of large intestine without perforation or abscess without bleeding; K64.8 Other hemorrhoids
CPT/HCPCS: 45385; 88305; J2704; J7120

== ENCOUNTER 2024-03-06 14:26 | Emergency (ER) | payer MEDICARE, SELFPAY ==
[2024-03-06 14:37] VITALS: BP 123/65; PULSE 67; RESP 16; TEMP 36.7; O2SAT 98
--- NOTE | 2024-03-06 14:40 | ED.URI ---
HPI - URI/Sore Throat General Chief Complaint: Upper Respiratory Infection Stated Complaint: sore throat,VALENTE,cough,bodyaches, SOB Time Seen by Provider: 03/06/24 14:42 Source: patient, RN notes reviewed and old records reviewed Mode of arrival: ambulatory Limitations: no limitations History of Present Illness HPI Narrative: 78-year-old male presents to the [facility] with complaints of headaches, body aches, cough, shortness of breath and a sore throat that started 5-6 days ago. States that when it 1st started he had 102-104 fever. Has not taken anything for his symptoms. Onset (ago): day(s) (5-6) Related Data Home Medications Medication Instructions Recorded Confirmed testosterone cypionate 200 mg/mL 200 mg IM [id number] 03/06/24 03/06/24 intramuscular oil Allergies Allergy/AdvReac Type Severity Reaction Status Date / Time No Known Allergies Allergy Verified 03/06/24 14:28 Review of Systems Review of Systems: All systems reviewed & are unremarkable except as noted in HPI and below Constitutional: Constitutional: Reports as per HPI, Reports body ache(s), Reports chills, Reports fatigue, Reports fever(s) and Reports lethargy Eyes: Eyes: Reports no additional eye complaints ENT: Reports as per HPI, Reports otalgia and Reports sore throat Cardiovascular: Cardiovascular: Reports no additional cardiovascular complaints, Denies chest pain and Denies dyspnea Respiratory: Respiratory: Reports as per HPI, Denies chest congestion, Reports cough and Denies dyspnea Gastrointestinal: Gastrointestinal: Reports no additional gastrointestinal complaints, Denies abdominal pain, Denies nausea and Denies vomiting Musculoskeletal: Musculoskeletal: Reports no additional musculoskeletal complaints Integumentary/Breasts: Skin/Breast: Reports system reviewed and no additional complaints, except as docu Neurologic: Reports system reviewed and no additional complaints, except as documented Psychiatric: Psychiatric: Reports no additional psychiatric complaints Allergic/Immunologic: Allergic/Immunologic: Reports no additional allergic/immunologic complaints [facility] Past Medical History Medical History Acid reflux Colon cancer screening Epigastric pain History of high cholesterol Interstitial lung disease PAT (paroxysmal atrial tachycardia) Surgical History Surgical History No pertinent past surgical history Family History Family History Sibling Hypertension Social History Social History Smoking status: Never smoker Second hand tobacco smoke exposure: Yes Alcohol intake: current Drinks per week: 1 Alcohol use details: WINE Substance use: never Substance use type: does not use Lack of Transportation: No Lack of Food: Never True Current Housing: I Have Housing Concerned About Future Housing: No Difficulty Paying Gas/Electric Bills: No Difficulty Paying for Meds: No Currently Unemployed: Decline to Answer Education: Associate Degree Difficulty w/ Childcare or Family Care: Decline to Answer Living arrangements: alone Gender identity (if verbalized by the patient): Male Spiritual care concerns: No Comments At the time of my signature, I reviewed and agree with the nursing past medical, surgical, social, and family history. There is no relevant family history pertinent to the patient complaint. Exam Const: General: cooperative, healthy appearing, comfortable, no acute distress, well developed, alert and well nourished Nutritional Appearance: well nourished Orientation/consciousness: patient oriented x3 Limitations: no limitations HENMT: Head: normal to inspection Ears: hearing grossly normal bilaterally, external ears normal, TM's normal bilaterally, EAC's normal, mast
[2024-03-06 15:01] LABS: EDINFLUASCREEN Negative; EDINFLUBSCREEN Negative; EDSTREPNEGPOS1 Negative
== END 2024-03-06 14:58 | disposition home or self-care (01) ==
PROVIDERS: Emergency Provider Nurse Practitioner; PCP Family Medicine
DX: U07.1 COVID-19 (principal); K21.9 Gastro-esophageal reflux disease without esophagitis; E78.00 Pure hypercholesterolemia, unspecified; J84.9 Interstitial pulmonary disease, unspecified
CPT/HCPCS: 87081; 87426; 87804; 87880; 99213; G0463

== ENCOUNTER 2024-03-28 10:37 | Outpatient (CLI) | payer MEDICARE, SELFPAY ==
[2024-04-02 18:09] LABS: Testosterone Free 151 pg/mL (30.0-135.0); Testosterone Total 562 ng/dL (250-1100)
== END 2024-03-28 10:38 | disposition home or self-care (01) ==
LOC: ANHLAB 10:40
PROVIDERS: PCP Family Medicine; Visit Provider Family Medicine
DX: E29.1 Testicular hypofunction (principal)
CPT/HCPCS: 36415; 84402; 84403

== ENCOUNTER 2024-06-29 07:57 | Outpatient (CLI) | payer MEDICARE, SELFPAY ==
[2024-06-29 08:41] LABS: Alanine Aminotransferase 29 U/L (6-50); Alkaline Phosphatase 65 U/L (38-126); Anion Gap 3 mmol/L (4-12); Aspartate Amino Transferase 26 U/L (17-59); Bilirubin,Total 0.6 mg/dL (0.2-1.3); Blood Urea Nitrogen 23 mg/dL (9-20); Calcium 9.2 mg/dL (8.4-10.2); Carbon Dioxide 30 mmol/L (22-30); Chloride 108 mmol/L (98-107); Estimated Glomerular Filt Rate > 60; Glucose 99 mg/dL (65-110); Potassium 4.5 mmol/L (3.4-5.0); Sodium 141 mmol/L (137-145)
[2024-06-29 09:07] LABS: Prostate Specific Antigen 1.6 ng/mL (< OR = 4.0)
[2024-06-29 09:16] LABS: Hematocrit 43.5 % (42.0-52.0); Hemoglobin 14.7 g/dL (14.0-18.0); Mean Corpuscular HGB Conc 33.8 g/dl (32-36); Mean Corpuscular Hemoglobin 33.4 pg (26-34); Mean Corpuscular Volume 98.9 fl (80-100); Mean Platelet Volume 12.4 fl (7.4-10.4); Platelet Count Result 156 k/mm3 (150-375); Red Cell Distribution Width 13.9 % (11.5-14.5); White Blood Count 8.6 K/mm3 (4.5-10.0)
[2024-07-04 08:19] LABS: Testosterone Total 199 ng/dL (250-1100)
== END 2024-06-29 07:58 | disposition home or self-care (01) ==
PROVIDERS: PCP Family Medicine; Visit Provider Family Medicine
DX: Z12.5 Encounter for screening for malignant neoplasm of prostate (principal); E29.1 Testicular hypofunction; R79.89 Other specified abnormal findings of blood chemistry; R39.12 Poor urinary stream
CPT/HCPCS: 36415; 80053; 84153; 84403; 85027; G0103

== ENCOUNTER 2024-09-21 15:38 | Emergency (ER) | payer MEDICARE, SELFPAY ==
--- NOTE | 2024-09-21 15:43 | ED_ITS ---
HPI - URI/Sore Throat General Chief Complaint: Upper Respiratory Infection Stated Complaint: sneezing,itchy throat,cough,fever Time Seen by Provider: 09/21/24 15:55 Source: patient Mode of arrival: ambulatory Limitations: no limitations History of Present Illness HPI Narrative: Manual is a 79-year-old male patient presenting to the clinic today with complaints of sneezing, itchy eyes, itchy throat, cough, and fever. He reports highest fever was 102. Symptoms started on Tuesday and have gradually gotten worse. Denies any chest pain or shortness of breath. Cough is productive with clear phlegm. MD elicited complaint: fever, cough, sore throat and nasal congestion Related Data Home Medications ?Medication ?Instructions ?Recorded ?Confirmed ?Last Taken ?Type testosterone cypionate 200 mg/mL 200 mg IM [id number] 03/06/24 03/06/24 Unknown History intramuscular oil Allergies Allergy/AdvReac Type Severity Reaction Status Date / Time No Known Allergies Allergy Verified 09/21/24 15:41 Review of Systems Review of Systems: Pertinent positives per HPI. Patient denies any fever, chills, rash, headache, visual changes, dizziness, cough, shortness of breath, chest pain, palpitations, nausea, vomiting, diarrhea, constipation, abdominal pain, or any urinary issues. FOR[facility]LY [facility] Past Medical History Medical History History of high cholesterol Colon cancer screening Epigastric pain PAT (paroxysmal atrial tachycardia) Interstitial lung disease Acid reflux Surgical History Surgical History No pertinent past surgical history Family History Family History Sibling Hypertension Social History Social History Smoking status: Never smoker Second hand tobacco smoke exposure: Yes Alcohol intake: current Drinks per week: 1 Alcohol use details: WINE Substance use: never Substance use type: does not use Lack of Transportation: No Lack of Food: Never True Current Housing: I Have Housing Concerned About Future Housing: No Difficulty Paying Gas/Electric Bills: No Difficulty Paying for Meds: No Currently Unemployed: Decline to Answer Education: Associate Degree Difficulty w/ Childcare or Family Care: Decline to Answer Living arrangements: alone Gender identity (if verbalized by the patient): Male Spiritual care concerns: No Comments At the time of my signature, I reviewed and agree with the nursing past medical, surgical, social, and family history. There is no relevant family history pertinent to the patient complaint. Exam Narrative: General: Well-developed, well nourished, in no apparent distress Head: Normocephalic, atraumatic Eyes: Pupils equally round and reactive to light bilaterally, EOM intact, sclera and conjunctive clear, no discharge, lids normal Ears: TMs intact and clear, ear canals clear, no drainage, grossly hearing normal. Nose: Nares patent, clear nasal discharge, moderate inflammation, no sinus tenderness. Mouth: Oral pharynx without lesions or masses, good dentition, MMM. Postnasal drip Neck: Supple, trachea midline, no enlargement of anterior or posterior cervical nodes, no thyroid masses or goiter palpable. Cardio: Regular rate and rhythm, s1 and s2 normal, no murmur appreciated. Resp: Clear to auscultation bilaterally, no rhonchi, rales, wheezing or rubs Course Course Emergency Course: Portions of this record may have been created with voice recognition software. Level of Care: Express Care Visit Vital Signs Vital signs: Vital Signs Temperature 37.3 C 09/21/24 15:48 Pulse Rate 86 09/21/24 15:48 Respiratory Rate 16 09/21/24 15:48 Blood Pressure 108/79 09/21/24 15:48 Pulse Oximetry 99 09/21/24 15:48 Oxygen Delivery Room Air 09/21/24 15:48 Temperature 37.3 C 09/21/24 15:48 Pulse Rate 86 09/21/24 15:48 Respiratory Rate 16 09/21/24 15:48 Blood Pressure 108/79 09/21/24 15:48 Pulse Oximetry 99 09/21/24 15:48 Oxygen Delivery Room Air 09/21/24 15:48 Vital signs reviewed MDM - URI/Sore Throat MDM Narrative Medical decision making narrative: At the time of visit patient is resting comfortably on the exam table. Patient appears to be nontoxic. Labs: COVID test was negative. Influenza a test was positive Plan: Patient has influenza A. Supportive measures were discussed with the patient and they voiced understanding discharge instructions and agrees to treatment plan. Return precautions reviewed Differential Diagnosis Differential diagnosis: Likely upper respiratory infection, otitis media, sinusitis, viral infection, bronchitis, influenza, pharyngitis and other (COVID) Lab Data Labs: Lab Results 09/21/24 Range/Units 16:10 POC Influenza A Ag Positive (Negative) POC Influenza B Ag Negative (Negative) POC SARS CoV-2 Ag Negative (Negative) Discharge Plan Discharge Clinical Impression: Influenza A Patient Disposition: Home, Self-Care Condition: Stable Instructions: Antibiotic Form, Influenza (ED) Additional Instructions: Influenza A test was positive in the clinic today. COVID testing was negative. Take prescription medications only as prescribed Increase fluids and stay well hydrated Tylenol/motrin for pain/fever Flonase and OTC antihistamines as directed Vicks vapor rub to open sinuses Sinus rinses for congestion Cepacol spray, cough drops, throat lozenges, warm tea with honey/lemon, gargle salt water to soothe throat BRAT diet for diarrhea Clear liquids x 24 hours then advance as tolerated for nausea/vomiting Go to the ED if you develop a worsening in your condition- high fever not controlled by Tylenol or Motrin, dehydration, weakness, lethargy, shortness of breath, or chest pain. Follow up with your PCP in 3-5 days if symptoms persist. Patient Language: [place] Citizen Prescriptions: No Action testosterone cypionate 200 mg/mL oil 200 mg IM [id number] (DME) Easy Touch FlipLock Syringe 3 mL 23 gauge x 1 syringe See Rx Instructions .Route Qty: 14 1RF Rx Instructions: As directed (DME) BD Integra Syringe 3 mL 23 gauge x 1 syringe See Rx Instructions .Route Qty: 15 1RF Rx Instructions: As directed Follow-up/Referrals: Kalpesh Pemberton MD [Primary Care Provider] - Time of Disposition: 16:01 Quality NIHSS Nursing Documentation ED NIHSS nursing documentation: reviewed/agree
[2024-09-21 15:48] VITALS: BP 108/79; PULSE 86; RESP 16; TEMP 37.3; O2SAT 99
[2024-09-21 16:12] LABS: EDCOVIDSCREEN Negative (Negative); EDINFLUASCREEN Positive (Negative); EDINFLUBSCREEN Negative (Negative)
== END 2024-09-21 16:25 | disposition home or self-care (01) ==
PROVIDERS: Emergency Provider Nurse Practitioner Family; PCP Family Medicine
DX: J10.1 Influenza due to other identified influenza virus with other respiratory manifestations (principal); Z20.822 Contact with and (suspected) exposure to COVID-19
CPT/HCPCS: 87426; 87804; 99212; G0463

== ENCOUNTER 2024-11-08 23:55 | Emergency (ER) | payer OTHER, MEDICARE, SELFPAY ==
--- NOTE | ~2024-11-08 | XR_ITS ---
Right Shoulder Technique: AP and scapular Y views were obtained. Clinical History: Pain Findings: No fracture or dislocation is seen. Osseous alignment is anatomic. The glenohumeral and acr omioclavicular joint spaces are preserved. Soft tissues are unremarkable. Impression: Unremarkable right shoulder radiographs. Reviewed, dictated and finalized at [facility]. Impression: Unremarkable right shoulder radiographs.
--- OUTSIDE RECORDS SUMMARY | 2024-11-08 23:57 | XMS_ITS | Clinical Summary ---
Author Organization [facility] Address [address] [place] [address] Care Team Providers Care Drill Punch Operator Name Role Phone Obed Ireland DO Primary Care Provider [phone] Allergies No known active allergies Medications sucralfate 1 G tablet 04/12/2019 Active omeprazole 40 MG capsule 04/12/2019 Active FLUZONE HIGH-DOSE 0.5 ML injection Inject 0.5 mLs into the muscle. 0 03/30/2019 Active Social History Tobacco Use Types Packs/Day Years Used Date Smoking Tobacco: Never Smokeless Tobacco: Never Alcohol Use Standard Drinks/Week Comments Yes 0 (1 standard drink = 0.6 oz pur e alcohol) social wine Sex and Gender Information Value Date Recorded Sex Assigned at Not on file Legal Sex Male 12:08 PM CDT Gender Identity Not on file Sexual Orientation Not on file Last Filed Vital Signs Vital Sign Reading Time Taken Comments Blood Pressure 111/76 04/19/2019 12:10 PM CDT Pulse 57 04/19/2019 12:10 PM CDT Temperature 36.5 C (97.7 F) 04/19/2019 11:48 AM CDT Respiratory Rate 17 04/19/2019 12:10 PM CDT Oxygen Saturation 97% 04/19/2019 12:10 PM CDT Inhaled Oxygen Concentration - - Weight 74.8 kg (165 lb) 04/19/2019 10:13 AM CDT Height 168.9 cm (5' 6.5 ) 04/19/2019 10:13 AM CD T Body Mass Index 26.23 04/19/2019 10:13 AM CDT Plan of Treatment Health Maintenance Due Date Last Done Comments DTaP, Tdap and Td Vaccines ( 1 - Tdap) 1963 Pneumococcal Vaccine: 50+ Ye ars (1 of 1 - PCV) 1994 Zoster Vaccines (1 of 2) 1994 Annual Medicare Wellness Visit 2009 RSV Immunization or 60+ Years (1 - 1-dose 75+ series) 2019 COVID-19 Vaccine (1 - 2023-2 5 season) 2024 Meningococcal B Vaccine Aged Out No l onger eligible based on patient's age to complete this topic Meningococcal Vaccine Aged Out No mackenzie cam eligible based on patient's age to complete this topic RSV Immunizations Under 20 Months Aged Out No longer eligible based on patient's age to complete this topic Insurance HUMANA Care Teams Drill Punch Operator Relationship Specialty Start Date End Date Obed Ireland DO [address] [address] PCP - General INTERNAL MEDICINE 04/19/19
--- OUTSIDE RECORDS SUMMARY | 2024-11-08 23:58 | XMS_ITS | Clinical Summary ---
Author Organization [facility] [address] Address [address] [place] [address] Care Team Providers Care Guide Delegate Name Role Phone Kalpesh Pemberton MD Primary Care Provider [phone] Allergies No known active allergies Medications omeprazole (PriLOSEC) 40 mg capsule Take 1 capsule (40 mg total) by mouth daily 04/12/2019 Active docusate sodium (COLACE) 100 mg capsuleIndicati ons:constipatio n,Stool Softener Take 1 capsule (100 mg total) by mouth 2 (two) times a day 05/26/[address] (VOLTAREN) 75 mg EC tablet Take 1 tablet (75 mg total) by mouth 2 (two) times a day 09/28/2023 Active tamsulosin (FLOMAX) 0.4 mg extended release capsule Take by mouth daily 10/05/2023 Active Active Problems Problem Noted Date Diagnosed Date SDH (subdural hematoma) 06/04/2023 Subdural hematoma 05/24/2023 Immunizations Immunization Administration Dates Next Due Influenza, Quad, Adjuvantate d, Intramuscular 04/24/2022 Influenza, Quadrivalent, Hig h Dose, Preservative Free, Intrr 02/27/2023,04/19/2021,04/06/2020 Influenza, Trivalent, High D ose, Split, Preservative Free, Intramuscular 03/30/2019,05/22/2018,04/25/2017 Influenza, Trivalent, IM (MDV) 06/26/2014 Influenza, Trivalent, Preser vative Free, Intramuscular 06/10/2016,07/01/2015 Influenza, Unspecified 04/15/2023,04/16/2013 Pneumococcal Conjugate PCV 13 07/13/2017, 015 Pneumococcal Polysaccharide PPV23 07/04/2016,04/2014 TD Preservative Free 05/29/2017 ZOSTER LIVE 04/25/2017 ZOSTER Recombinant 04/05/2023 Social History Tobacco Use Types Packs/Day Years Used Date Smoking Tobacco: Former Cigarettes Tobacco Cessation:Counseling Given: Not Answered Personal Safety Answer Date Recorded Have you ever been in or are you currently in a harmful physical or emotional relationship or is someone making you feel afraid or unsafe? Denies 06/04/2023 Sex and Gender Information Value Date Recorded Sex Assigned at Not on file Legal Sex Male 2:18 AM RECYCLE DRIVER Gender Identity Not on file Sexual Orientation Not on file Obstetrics History Last Filed Vital Signs Vital Sign Reading Time Taken Comments Blood Pressure 124/80 10/27/2023 2:00 PM CDT Pulse 79 10/27/2023 2:00 PM CDT Temperature 36.7 C (98.1 F) 06/05/2023 12:00 PM RECYCLE DRIVER Respiratory Rate 15 06/05/2023 12:00 PM RECYCLE DRIVER Oxygen Saturation 94% 06/05/2023 12:00 PM RECYCLE DRIVER Inhaled Oxygen Concentration - - Weight 85.1 kg (187 lb 9.6 oz) 10/27/2023 2:00 P M CDT Height 170.2 cm (5' 7 ) 10/27/2023 2:00 PM CDT Body Mass Index 29.38 10/27/2023 2:00 PM CDT Plan of Treatment Health Maintenance Due Date Last Done Comments Depression Screening 1944 Hepatitis B Screening 1962 Well Visit 65+ 2009 DTaP/Tdap/Td Vaccine (1 - Tdap) 05/30/2017 7 Zoster Vaccine (3 of 3) 05/31/2023 04/05/2023, 04/25 Covid-19 Vaccine (4 - 2023-2 5 season) 2024 07/06/2022, 07/27/2021, 09/23/2020 Influenza Vaccine (#1) 2024 3, 02/27/2023, 04/24/2022, Additional history exists Fall Risk Assessment 06/05/2024 06/05/2023 Pneumococcal vaccine 65+ Completed 017, 07/04/2016, 07/01/2015, Additional history exists Medical Devices Implanted Type Area Reinforcing Steel Worker Wire Mesh Device Identifier Shelf Expiration Date Model / Serial / Lot [employer] Davin Floyd 1gm [facility] [id number] - [id number] Implanted:Qty: 1 on 05/25/2023 at [facility] [employer] 08/17/2024 [id number] / / [id number] Insurance HUMANA MEDICARE HMO HUMANA MEDICARE HMO Advance Directives For more information, please contact: [phone] * Full Code (Latest Code Status on File) Date Activated Date Inactivated Comments 05/24/2023 7:17 AM 05/26/2023 2:40 PM Care Teams Guide Delegate Relationship Specialty Start Date End Date Kalpesh Pemberton MD PCP - General Family Practice 07/21/23
--- OUTSIDE RECORDS SUMMARY | 2024-11-08 23:58 | XMS_ITS | Referral Summary ---
Author Organization [facility] [address] Address [address] [place] [address] Care Team Providers Care Apartment Locator Name Role Phone Kalpesh Pemberton MD Primary Care Provider [phone] Allergies No known active allergies Medications omeprazole [...] on file Legal Sex Male 2:18 AM DOCUMENT SPECIALIST Gender Identity Not on file Sexual Orientation Not on file Last Filed Vital Signs Vital Sign Reading Time Taken Comments Blood Pressure 124/80 10/27/2023 2:00 PM CDT Pulse 79 10/27/2023 2:00 PM CDT Temperature 36.7 C (98.1 F) 06/05/2023 12:00 PM DOCUMENT SPECIALIST Respiratory Rate 15 06/05/2023 12:00 PM DOCUMENT SPECIALIST Oxygen Saturation 94% 06/05/2023 12:00 PM DOCUMENT SPECIALIST Inhaled Oxygen Concentration - - Weight 85.1 kg (187 lb 9.6 oz) 10/27/2023 2:00 P M CDT Height 170.2 cm (5' 7 ) 10/27/2023 2:00 PM CDT Body Mass Index 29.38 10/27/2023 2:00 PM CDT Plan of Treatment Not on file Medical Devices Implanted Type Area Cement Finisher Helper Device Identifier Shelf Expiration Date Model / Serial / Lot [employer] Trufill Glue 1gm Replaced By [facility] [id number] - [id number] Implanted:Qty: 1 on 05/25/2023 at [facility] [employer] 08/17/2024 [id number] / / [id number] [place] [address] HUMANA MEDICARE HMO HUMANA MEDICARE HMO Advance Directives For more information, please contact: [phone] * Full Code (Latest Code Status on File) Date Activated Date Inactivated Comments 05/24/2023 7:17 AM 05/26/2023 2:40 PM Care Teams Apartment Locator Relationship Specialty Start Date End Date Kalpesh Pemberton MD PCP - General Family Practice 07/21/23
--- OUTSIDE RECORDS SUMMARY | 2024-11-08 23:58 | XMS_ITS | Clinical Summary ---
Author Organization [facility] Care Team Providers Care Sap Portal Consultant Name Role Phone Unavailable Primary Care Provider Unavailabl e Social History Tobacco Use Types Packs/Day Years Used Date Smoking Tobacco: Never Assessed Sex and Gender Information Value Date Recorded Sex Assigned at Not on file Legal Sex Male 2:51 PM ENGAGEMENT QUALITY CONSULTANT Gender Identity Not on file Sexual Orientation Not on file Plan of Treatment Health Maintenance Due Date Last Done Comments Hepatitis C Virus (HCV) Screening 1945 TdaP Immunization 1945 Zoster Immunization (2 of 3) 06/20/2017 04/25/2017 Respiratory Syncytial Virus (RSV) Immunization (Adult) (1 - 1-dose 75+ series) 2019 Influenza Immunization (#1) 03/18/202403/19, 03/30/2019, 05/22/2018, Additional history exists SARS-COV-2 Immunization ( season) 2024 DTaP/Tdap/Td Immunization Discontinued 05/29/2017 Pneumococcal Immunization (50+ years) Completed 07/13/2017, 07/04/2016, 07/01/2015, Additional history exists Pneumococcal Immunization Combined Discontinued 07/13/2017, 07/04/2016, 07/01/2015, Additional history exists Hepatitis B Immunization Aged Out No longer eligible based on patient's age to complete this topic Meningococcal Immunization (ACWY) Aged Out No longer eligible based on patient's age to complete this topic Rotavirus Immunization Aged Out No lo nger eligible based on patient's age to complete this topic
[2024-11-09 00:03] VITALS: BP 142/93; PULSE 69; RESP 15; TEMP 36.8; O2SAT 97
--- NOTE | 2024-11-09 00:08 | ED_ITS ---
HPI - Fall General Chief Complaint: Fall Stated Complaint: fall, R shoulder pain Time Seen by Provider: 11/08/24 23:59 History of Present Illness HPI Narrative: 79 y/o M presents to the ED for R shoulder pain after mechanical fall this afternoon. Patient states he was stepping off of a 2 ft retaining wall in his left foot got stuck in caused him to lose his balance and fall, landing on his right shoulder. He did hit his head or lose consciousness. He is not anticoagulated. Denies other injuries or pain. Denies pain pain. He is reporting pain to right proximal humerus worse with range of motion. No pain in remainder of extremity. Took ibuprofen earlier without improvement. Related Data Home Medications ?Medication ?Instructions ?Recorded ?Confirmed ?Last Taken ?Type testosterone cypionate 200 mg/mL 200 mg IM [id number] 03/06/24 03/06/24 Unknown History intramuscular oil Allergies Allergy/AdvReac Type Severity Reaction Status Date / Time No Known Allergies Allergy Verified 09/21/24 15:41 Review of Systems Review of Systems: All systems reviewed & are unremarkable except as noted in HPI and below PMFSH Past Medical History Medical History History of high cholesterol Colon cancer screening Epigastric pain PAT (paroxysmal atrial tachycardia) Interstitial lung disease Acid reflux Surgical History Surgical History No pertinent past surgical history Family History Family History Sibling Hypertension Social History Social History Smoking status: Never smoker Second hand tobacco smoke exposure: Yes Alcohol intake: current Drinks per week: 1 Alcohol use details: WINE Substance use: never Substance use type: does not use Lack of Transportation: No Lack of Food: Never True Current Housing: I Have Housing Concerned About Future Housing: No Difficulty Paying Gas/Electric Bills: No Difficulty Paying for Meds: No Currently Unemployed: Decline to Answer Education: Associate Degree Difficulty w/ Childcare or Family Care: Decline to Answer Living arrangements: alone Gender identity (if verbalized by the patient): Male Spiritual care concerns: No Exam Narrative: GENERAL: Well-appearing, well-nourished, and in no acute distress. HEAD: Normocephalic, atraumatic. EYES: EOMI. ENT: Nares clear, no rhinorrhea or epistaxis. Mucous membranes moist. NECK: No midline cervical spinous tenderness, crepitus step-offs or deformities BACK: No midline thoracolumbar spinous tenderness, step-off or deformities CHEST: Clear to auscultation. No respiratory distress. No tenderness to chest wall, no ecchymosis HEART: Regular rate and rhythm. No murmur heard. Normal peripheral pulses. ABDOMEN: Soft, nontender, nondistended, normal active bowel sounds. EXTREMITIES: Tenderness to the proximal right humerus with mild edema, no obvious deformity. Full range of motion of elbow, wrist and fingers. Radial, median and ulnar nerves intact. Sensation intact throughout. Radial pulse 2 +. No tenderness remainder of right extremity, LUE or BLE. Compartments soft SKIN: Warm, dry, no rash. NEURO: No focal deficits. Alert and oriented x3 Course Vital Signs Vital signs: Vital Signs Temperature 98.3 F 11/09/24 00:03 Pulse Rate 69 11/09/24 00:03 Respiratory Rate 15 11/09/24 00:03 Blood Pressure 142/93 H 11/09/24 00:03 Pulse Oximetry 97 11/09/24 00:03 Oxygen Delivery Room Air 11/09/24 00:03 Temperature 98.3 F 11/09/24 00:03 Pulse Rate 69 11/09/24 00:03 Respiratory Rate 15 11/09/24 00:03 Blood Pressure 142/93 H 11/09/24 00:03 Pulse Oximetry 97 11/09/24 00:03 Oxygen Delivery Room Air 11/09/24 00:03 MDM - Fall MDM Narrative Medical decision making narrative: 79 y/o M presents to the ED for right shoulder pain after a mechanical fall that occurred this afternoon. See HPI for further history. Patient did not hit his head or lose consciousness. His only complaints is right shoulder pain. No other injuries. Vitals are stable. Exam is notable for the above. He is neurovascularly intact. X-ray of the shoulder interpreted by myself and Dr. Esquivel shows no acute fractures or dislocation. Patient does have increased hilar markings and right upper lobe consolidation which is unchanged from prior x-rays and consistent with known underlying interstitial lung disease. He has no shortness of breath, cough is unchanged from baseline, he is afebrile. Patient was updated on results and placed in a sling and provided [place] for pain with improvement. He was advised to take Tylenol as needed for pain, RICE and follow-up with his PCP. Orthopedic referral also provided if pain persists. Discussed strict ED return precautions. He is agreeable with the plan verbalized understanding. Discharged in stable condition. Discharge Plan Discharge Clinical Impression: Acute pain of right shoulder Patient Disposition: Home Condition: Stable Instructions: Antibiotic Form, Shoulder Pain (ED) Additional Instructions: You were evaluated in the emergency department for shoulder pain after fall. Your x-ray is reassuring. Please rest, ice and keep your shoulder in a sling. Practice range of motion as tolerated to prevent frozen shoulder. Take Tylenol as directed [id number] as needed for pain. Follow-up with your primary care provider. If her pain persists for 2 weeks follow up with Orthopedics. Return to the emergency department if you develop any new or worsening symptoms. Patient Language: Bahraini Prescriptions: No Action testosterone cypionate 200 mg/mL oil 200 mg IM [id number] (DME) Easy Touch FlipLock Syringe 3 mL 23 gauge x 1 syringe See Rx Instructions .Route Qty: 14 1RF Rx Instructions: As directed (DME) BD Integra Syringe 3 mL 23 gauge x 1 syringe See Rx Instructions .Route Qty: 15 1RF Rx Instructions: As directed Follow-up/Referrals: oNrman Moran MD [Physician] - Kalpesh Pemberton MD [Primary Care Provider] -
[2024-11-09] MEDS: HYDROcodone/acetaminophen (*CRX) 5-325 MG TABLET 1 TAB PO (00:30)
--- OUTSIDE RECORDS SUMMARY | 2024-11-09 00:38 | XMS_ITS | Referral Summary ---
Author Organization [facility] [address] Address [address] [place] [address] Care Team Providers Care Battery Parts Assembler Name Role Phone Kalpesh Pemberton MD Primary Care Provider [phone] Allergies No known active allergies Medications omeprazole [...] on file Legal Sex Male 2:18 AM DRUPAL PROGRAMMER Gender Identity Not on file Sexual Orientation Not on file Last Filed Vital Signs Vital Sign Reading Time Taken Comments Blood Pressure 124/80 10/27/2023 2:00 PM CDT Pulse 79 10/27/2023 2:00 PM CDT Temperature 36.7 C (98.1 F) 06/05/2023 12:00 PM DRUPAL PROGRAMMER Respiratory Rate 15 06/05/2023 12:00 PM DRUPAL PROGRAMMER Oxygen Saturation 94% 06/05/2023 12:00 PM DRUPAL PROGRAMMER Inhaled Oxygen Concentration - - Weight 85.1 kg (187 lb 9.6 oz) 10/27/2023 2:00 P M CDT Height 170.2 cm (5' 7 ) 10/27/2023 2:00 PM CDT Body Mass Index 29.38 10/27/2023 2:00 PM CDT Plan of Treatment Not on file Medical Devices Implanted Type Area Deputy Building Guard Device Identifier Shelf Expiration Date Model / Serial / Lot [employer] Trufill Glue 1gm [facility] [id number] - [id number] Implanted:Qty: 1 on 05/25/2023 at [facility] [employer] 08/17/2024 [id number] / / [id number] [place] [address] HUMANA MEDICARE HMO HUMANA MEDICARE HMO Advance Directives For more information, please contact: [phone] * Full Code (Latest Code Status on File) Date Activated Date Inactivated Comments 05/24/2023 7:17 AM 05/26/2023 2:40 PM Care Teams Battery Parts Assembler Relationship Specialty Start Date End Date Kalpesh Pemberton MD PCP - General Family Practice 07/21/23
--- OUTSIDE RECORDS SUMMARY | 2024-11-09 00:38 | XMS_ITS | Clinical Summary ---
Author Organization [facility] Address [address] [place] [address] Care Team Providers Care Senior Process Control Tech Name Role Phone Obed Ireland DO Primary Care Provider [phone] Allergies No known active allergies Medications sucralfate [...] complete this topic Insurance HUMANA Care Teams Senior Process Control Tech Relationship Specialty Start Date End Date Obed Ireland DO [address] [address] PCP - General INTERNAL MEDICINE 04/19/19
--- OUTSIDE RECORDS SUMMARY | 2024-11-09 00:38 | XMS_ITS | Clinical Summary ---
Author Organization [facility] [address] Address [address] [place] [address] Care Team Providers Care Veneer Joiner Name Role Phone Kalpesh Pemberton MD Primary Care Provider [phone] Allergies No known active allergies Medications omeprazole [...] on file Legal Sex Male 2:18 AM [employer] Gender Identity Not on file Sexual Orientation Not on file Obstetrics History Last Filed Vital Signs Vital Sign Reading Time Taken Comments Blood Pressure 124/80 10/27/2023 2:00 PM CDT Pulse 79 10/27/2023 2:00 PM CDT Temperature 36.7 C (98.1 F) 06/05/2023 12:00 PM [employer] Respiratory Rate 15 06/05/2023 12:00 PM [employer] Oxygen Saturation 94% 06/05/2023 12:00 PM [employer] Inhaled Oxygen Concentration - - Weight 85.1 [...] history exists Medical Devices Implanted Type Area Hot Roller Device Identifier Shelf Expiration Date Model / Serial / Lot [employer] Davin Floyd 1gm [facility] [id number] - [id number] Implanted:Qty: 1 on 05/25/2023 at [facility] [employer] 08/17/2024 [id number] / / [id number] Insurance HUMANA MEDICARE HMO HUMANA MEDICARE HMO Advance Directives For more information, please contact: [phone] * Full Code (Latest Code Status on File) Date Activated Date Inactivated Comments 05/24/2023 7:17 AM 05/26/2023 2:40 PM Care Teams Veneer Joiner Relationship Specialty Start Date End Date Kalpesh Pemberton MD PCP - General Family Practice 07/21/23
--- OUTSIDE RECORDS SUMMARY | 2024-11-09 00:38 | XMS_ITS | Clinical Summary ---
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
[2024-11-09 01:01] VITALS: BP 136/88; PULSE 65; RESP 17; O2SAT 98
[2024-11-09 01:03] VITALS: BP 136/88; PULSE 65; RESP 17; O2SAT 98
== END 2024-11-09 01:07 | disposition home or self-care (01) ==
PROVIDERS: Emergency Provider Physician Assistant; PCP Family Medicine
DX: M25.511 Pain in right shoulder (principal); W18.30XA Fall on same level, unspecified, initial encounter
CPT/HCPCS: 73030; 99283; A4565; A9270

== ENCOUNTER 2024-11-22 10:07 | Outpatient (CLI) | payer MEDICARE, SELFPAY ==
--- NOTE | ~2024-11-22 | MR_ITS ---
MRI of the right shoulder Technique: Axial proton-density fat-sat images, coronal proton density fat-sat and T2 fat-sat images, and sagittal T1-weighted and T2 fat-sat images were acquired. Clinical History: Injury Findings: There is moderate AC joint degenerative change with subacromial spur present. Coracoclavicu lar, coracoacromial, and coracohumeral ligaments appear intact. There is full-thickness tear involving the entire supraspinatus tendon, with fluid-filled gap measuri ng approximately 3.2 x 2.6 cm in extent. There is advanced tendinosis of the infraspinatus tendon wit hout definite partial or full-thickness tear. Subscapularis tendon is intact with mild tendinosis. Te ndon of long head of the biceps is intact. No definite labral tear seen. Inferior glenohumeral ligament is intact. There is small glenohumeral joint effusion with fluid passi ng through the rotator cuff defect into the subacromial/subdeltoid bursa and subscapularis recess. No significant degenerative change of the glenohumeral joint. No muscle atrophy or edema. Impression: Complete, full-thickness tear of the entire supraspinatus tendon, as detailed above. Background rotator cuff tendinosis. Moderate AC joint degenerative change. Reviewed, dictated and finalized at [facility]. Impression: Complete, full-thickness tear of the entire supraspinatus tendon, as detailed nanette boyer. Background rotator cuff tendinosis. Moderate AC joint degenerative change.
== END 2024-11-22 10:08 | disposition home or self-care (01) ==
LOC: MICIMG 10:07
PROVIDERS: PCP Family Medicine; Visit Provider Nurse Practitioner Family
DX: M75.121 Complete rotator cuff tear or rupture of right shoulder, not specified as traumatic (principal)
CPT/HCPCS: 73221

== ENCOUNTER 2024-12-11 00:32 | Day surgery (SDC) | payer MEDICARE, SELFPAY ==
[2024-12-07 09:37] VITALS: BMI 26.6
--- NOTE | 2024-12-07 09:55 | PC.NURSE ---
Report to the Outpatient Waiting Room, entrance under the green pavilion located off [facility], at time ___10:00AM____ on date ___12/11/24____. Planned Procedure Time: ___12:00PM .? Time changes happen often and if your time is changed the preop area will call you the afternoon before. - You and your visitor will be asked to self-screen and do not enter if you have any COVID symptoms. Please call surgeon if you need to reschedule. - A mask is optional within the hospital at this time. Patients may have clear liquids (water, carbonated beverages, clear teas, apple juice) until 3 hours prior to surgery (9:00AM) with a maximum of 20 ounces. - No food from midnight until time of surgery and no smoking, or chewing tobacco (or any form of nicotine). No chewing gum, candy or mints. Take only the following medications with a SIP of water on the morning of surgery: HYDROCODONE NEEDED FOR PAIN DO NOT STOP ANY OF YOUR OTHER PRESCRIPTION MEDICATIONS PRIOR TO SURGERY EXCEPT THE FOLLOWING Hold all vitamins and supplements for 3 days per anesthesiologist. Medications to discontinue per physician ___HOLD NAPROXEN PER DR MAC Date to take last dose Please no make-up, nail khmer, hairspray, perfume, deodorant, or body powder the day of surgery.? No jewelry (including any body piercings) or valuables the day of surgery, leave them at home.? Please take a shower or bath the night before, or the morning of, surgery with an antibacterial soap.? Wear comfortable, loose fitting clothing.? - Jewelry must be removed prior to entering the operating room.? Rings and piercings that are not removed may be cut off. - The hospital will not accept responsibility for valuables.? - Please leave all valuables, including medications, at home the day of surgery. If you are going home after surgery, a licensed courier delivery driver must drive you home.? - NO public transportation without another adult if you receive anesthesia. - We recommend that an adult stay with you for 24 hours following discharge. - We also recommend that you do not drive, make important decision, drink alcoholic beverages, or take any drugs that were not prescribed by your health care provider for at least 24 hours after your discharge time. Follow any additional instructions given to you from your surgeon. Telephone instructions given to ____PATIENT and asked if any additional questions and then verbalized understanding. Patient advised to call surgeon office or pre surgery nurse liaison [phone] if any additional questions.
[2024-12-11] VITALS (17 sets, daily range): BP systolic 102–146; BP diastolic 56–83; PULSE 60–91; RESP 9–24; TEMP 36–36.6; O2SAT 92–100; BMI 27.8
--- OUTSIDE RECORDS SUMMARY | 2024-12-11 00:36 | XMS_ITS | Clinical Summary ---
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
--- OUTSIDE RECORDS SUMMARY | 2024-12-11 00:36 | XMS_ITS | Referral Summary ---
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 Gender Identity Not on file Sexual Orientation Not on file Last Filed Vital Signs Vital Sign Reading Time Taken Comments Blood Pressure 124/80 10/27/2023 2:00 PM CDT Pulse 79 10/27/2023 2:00 PM CDT Temperature 36.7 C (98.1 F) 06/05/2023 12:00 PM PARACHUTE CUSHION INSTALLER Respiratory Rate 15 06/05/2023 12:00 PM PARACHUTE CUSHION INSTALLER Oxygen Saturation 94% 06/05/2023 12:00 PM PARACHUTE CUSHION INSTALLER Inhaled Oxygen Concentration - - Weight 85.1 kg (187 lb 9.6 oz) 10/27/2023 2:00 P M CDT Height 170.2 cm (5' 7) 10/27/2023 2:00 PM CDT Body Mass Index 29.38 10/27/2023 2:00 PM CDT Plan of Treatment Not on file Medical Devices Implanted Type Area Technical Proposal Writer Device Identifier Shelf Expiration Date Model / Serial / Lot [employer] Trufill Glue 1gm [facility] [id number] - [id number] Implanted:Qty: 1 on 05/25/2023 at [facility] [employer] 08/17/2024 [id number] / / [id number] [place] [address] HUMANA MEDICARE HMO HUMANA MEDICARE HMO Advance Directives For more information, please contact: [phone] * Full Code (Latest Code Status on File) Date Activated Date Inactivated Comments 05/24/2023 7:17 AM 05/26/2023 2:40 PM Care Teams Technical Engineer Relationship Specialty Start Date End Date Kalpesh Pemberton MD PCP - General Family Practice 07/21/23
--- OUTSIDE RECORDS SUMMARY | 2024-12-11 00:36 | XMS_ITS | Continuity of Care Document ---
Author Organization [facility] Address [address] [place] [address] Phone Care Team Providers Care Data Center Manager Name Role Phone Maurice Cao MD Unavailable Unavailable Medications Medication Instructions Dosage Effective Dates (start - stop) Status Comments FLONASE 50MCG APPLICS 2 QD - Acti ve Advance Directives Directive Yes / No Effective Date File Name No Information Encounters Encounter Description Practice Location Reason(s) For Visit Diagnoses Date Provider Providers Copied on Encounter [facility], [address] [place] [address], [id number], tel:[phone] [facility] No Information Nahs Richards. [address] [place] [address], [id number], . tel:[phone] [facility], [id number] [place] [address], [id number], tel:[phone] [facility] CHRONIC RHINITIS Nash Richards. [address] [place] [address], [id number], . tel:[phone] Family History Family Member Type Diagnosis Age At Onset No Information Payers Payer name Insurance type Covered constitution party ID Authoriza tion(s) No Information Social History Type Description Quantity Date Captured Comments Sex Male Smoking Status No Information Chief Complaint And Reason For Visit No Information Reason For Referral Reason For Referral No Information History Of Present Illness Encounter Date Complaint History Of Prese nt Illness No Information Functional Status Date Functional Assessmen t No Information Instructions Date Instruction Additional Infor mation No Information Assessments Type Assessment Date No Information Patient Care Teams Name Effective Dates (start - stop) Status Members No Information
--- OUTSIDE RECORDS SUMMARY | 2024-12-11 00:36 | XMS_ITS | Clinical Summary ---
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 Gender Identity Not on file Sexual Orientation Not on file Obstetrics History Last Filed Vital Signs Vital Sign Reading Time Taken Comments Blood Pressure 124/80 10/27/2023 2:00 PM CDT Pulse 79 10/27/2023 2:00 PM CDT Temperature 36.7 C (98.1 F) 06/05/2023 12:00 PM CENTRAL OFFICE INSTALLER Respiratory Rate 15 06/05/2023 12:00 PM CENTRAL OFFICE INSTALLER Oxygen Saturation 94% 06/05/2023 12:00 PM CENTRAL OFFICE INSTALLER Inhaled Oxygen Concentration - - Weight [...] 2023-2 5 season) 2024 07/06/2022, 07/27/2021, 09/23/2020 Fall Risk Assessment 06/05/2024 06/05/2023 Influenza Vaccine (Season Ended) 2025 04/15/2023, 02/27/2023, 04/24/2022, Additional history exists Pneumococcal vaccine 65+ Completed 017, 07/04/2016, 07/01/2015, Additional history exists Medical Devices Implanted Type Area Stencil Inspector Device Identifier Shelf Expiration Date Model / Serial / Lot [employer] Davin Floyd 1gm [facility] [id number] - [id number] Implanted:Qty: 1 on 05/25/2023 at [facility] [employer] 08/17/2024 [id number] / / [id number] Insurance HUMANA MEDICARE HMO HUMANA MEDICARE HMO Advance Directives For more information, please contact: [phone] * Full Code (Latest Code Status on File) Date Activated Date Inactivated Comments 05/24/2023 7:17 AM 05/26/2023 2:40 PM Care Teams Quotation Checker Relationship Specialty Start Date End Date Kalpesh Pemberton MD PCP - General Family Practice 07/21/23
[2024-12-11] MEDS: CELECOXIB 200 MG CAPSULE PO (10:35)
[2024-12-11] MEDS: ACETAMINOPHEN 500 MG TABLET 1000 MG PO ×2 (10:35→18:30)
[2024-12-11] MEDS: LACTATED RINGERS 1,000 ML 30 ML IV CONT ×2 (10:50→17:20)
--- NOTE | 2024-12-11 11:33 | WPDHPUPDATE1 ---
History and Physical Update Update Date/Time: 12/11/24 11:33 History and Physical has been reviewed, including an updated exam of the patient. There are NO changes in the patient's condition. Risks, benefits, and alternatives have been discussed and questions answered. Patient agrees to proceed with procedure.
--- NOTE | 2024-12-11 11:37 | WPDANESEPPF ---
Anes - Initial Pre Proc Eval Procedure: Operation Date: 12/11/24 12:00 Proposed Procedures p Right Rotator Cuff Repair - Norman Moran MD Date/Time: 12/11/24 11:37 Surgeon: Norman Moran MD Pre Op Diagnosis: Rt Rot Cuff Tear Patient Data Age: 79 Gender: M Height: 1.7 m Weight: 80.8 kg Last Vital Signs Temp 97.8 F 12/11/24 10:30 Pulse 63 12/11/24 10:30 Resp 16 12/11/24 10:30 BP 142/76 H 12/11/24 10:30 Pulse Ox 100 12/11/24 10:30 O2 Del Method Room Air 12/11/24 10:30 Allergies Allergy/AdvReac Type Severity Reaction Status Date / Time codeine Allergy Unknown Unknown Verified 12/07/24 12:49 Home Medications ?Medication ?Instructions ?Recorded ?Confirmed ?Type acetaminophen 500 mg capsule 1,000 mg (2 x 500 mg) PO Q6H PRN 11/14/24 12/07/24 Rx pain #240 caps naproxen 500 mg tablet 500 mg PO BID PRN pain #60 tabs 11/14/24 12/11/24 Rx clindamycin 1 %-benzoyl peroxide 5 1 applic topical DAILY #25 grams 12/06/24 12/11/24 Rx % topical gel omeprazole 20 mg capsule,delayed 20 mg PO DAILY 12/07/24 12/07/24 History release diazepam 5 mg tablet (Valium) 5 mg PO BID PRN muscle spasm #30 12/11/24 Rx tabs oxycodone-acetaminophen 5 mg-325 1 tablet PO Q6H PRN pain #40 tabs 12/11/24 Rx mg tablet (Percocet) Patient hx anesthesia problems: none Family hx anesthesia problems: none Results Review: All pre-operative results and documents have been reviewed as part of the pre-operative evaluation. [facility] Past Medical History Medical History History of high cholesterol Colon cancer screening Epigastric pain PAT (paroxysmal atrial tachycardia) Interstitial lung disease Acid reflux Surgical History Surgical History History of cholecystectomy No pertinent past surgical history Family History Family History Sibling Hypertension Cancer Social History Social History Smoking status: Never smoker Second hand tobacco smoke exposure: Yes Alcohol intake: current Drinks per week: 1 Alcohol use details: WINE Substance use: never Substance use type: does not use Do You Feel Safe in your Home?: Yes Lack of Transportation: No Lack of Food: Never True Current Housing: I Have Housing Concerned About Future Housing: No Difficulty Paying Gas/Electric Bills: No Difficulty Paying for Meds: No Currently Unemployed: Decline to Answer Education: Associate Degree Difficulty w/ Childcare or Family Care: Decline to Answer Living arrangements: alone Gender identity (if verbalized by the patient): Male Spiritual care concerns: No Anes - Eval Final PreProcedure Day of Procedure 12/11/24 11:37 Patient weight: overweight Lungs: normal air movement Airway: Mallampati scale class III Neurological: alert and oriented Last oral intake: >/= 8 hours ASA classification: III Emergent: no Anesthetic plan: proceed Anesthesia type and monitoring: general ETT and standard monitoring Results Review: All pre-operative results and documents have been reviewed as part of the pre-operative evaluation. GERD, remote hx PAT, pt w interstitial lung disease noted after exposure as part of his work, occ coughing. This note completed at this time due to inadvertently not being completed on DOS. Informed Consent: The patient's anesthetic plan and its attendant risks and benefits were discussed with the patient/family/POA. Questions were solicited and answers provided to the satisfaction of the patient/family/POA.
[2024-12-11] MEDS: ceFAZolin 2 GM/D5W 50 ML 2 GM/50 ML BAG IVPB (12:13)
[2024-12-11] MEDS: BUPivacaine HCL 0.5% 10 ML AMP 20 ML INFILTRATE (12:51)
--- NOTE | 2024-12-11 14:40 | W.PM.PROC2 ---
Procedure Note - Detailed Date of Procedure 12/11/24 Pre-op Diagnosis Rt Rot Cuff Tear Post-op Diagnosis Same Procedure Performed REPAIR RIGHT ROTATOR CUFF Surgeon Norman Moran MD Anesthesia General Description of Procedure THE PATIENT WAS TAKEN TO THE OPERATING ROOM AND THEN INTUBATED AND PLACED IN THE BEACH CHAIR POSITION. THE RIGHT UPPER EXTREMITY WAS PREPPED AND DRAPED IN THE NORMAL STERILE FASHION. AN INCISION WAS MADE IN BETWEEN THE SAMIRA-LATERAL ACROMION AND THE AC JOINT. THE FASCIA WAS IDENTIFIED. NEXT A MINI OPEN INCISION WAS MADE THROUGH THE DELTOID MUSCLE EXPOSING THE SUBACROMIAL SPACE. A LIMITED ACROMIOPLASTY WAS PREFORMED. THE ROTATOR CUFF WAS IDENTIFIED. THERE WAS A FULL THICKNESS LARGE TEAR INVOLVING BOTH THE SUPRASPINATUS AND INFRASPINATUS. THE TERES MINOR WAS INTACT. THE CUFF EDGES WERE MOBILIZED AND SCAR TISSUE WAS EXCISED. THE BICEPS TENDON WAS RETRACTED AND WAS INTACT. THE GREATER TUBEROSITY WAS DEBRIDED TO BLEEDING BONE. 4 ARTHREX 5.5 SUTURE ANCHORS WERE PLACED IN TO GOOD BONE AND HAD VERY GOOD BITES. MAGNO-DEMETRI TYPE REPAIRS WERE DONE TO THE ROTATOR CUFF AND THERE WAS GOOD APPROXIMATION TO THE GREATER TUBEROSITY. THE REPAIR WAS EXCELLENT. THERE WAS NO IMPINGEMENT ON THE REPAIR FROM THE ACROMION WITH RANGE OF MOTION. THE WOUND WAS IRRIGATED WITH COPIOUS AMOUNTS OF ANTIBIOTIC SOLUTION. THE DELTOID MUSCLE WAS REPAIRED WITH #2 FIBER WIRE AND 0 VICRYL SUTURE. THE SUBCUTANEOUS LAYER WAS APPROXIMATED WITH 2-0 VICRYL. THE SKIN WAS APPROXIMATED WITH 3-0 QUIL AND DERMABOND. STERILE DRESSING WAS APPLIED. PATIENT WAS EXTUBATED. Estimated Blood Loss 20 Complications No immediate complications Condition Stable Disposition PACU
[2024-12-11] MEDS: fentaNYL CITRATE INJ (*CRX) 100 MCG/2 ML VIAL 25 MCG IV PUSH ×8 (15:03→15:29)
[2024-12-11] MEDS: HYDROmorphone HCL INJ (*CRX) 1 MG/ML SYR 0.25 MG IV PUSH ×4 (15:38→15:55)
[2024-12-11] MEDS: ONDANSETRON INJ 4 MG/2 ML VIAL IV PUSH ×2 (15:38→18:19)
--- NOTE | 2024-12-11 16:04 | SUR.PHASEI ---
patient stating he is not feeling well after surgery, poorly explaining as to why. Patient stated his pain is 8/10 see MAR for pain sr. social media & mobile manager. Patient is resting what it looks like comfortably in his stretcher. Patient is orientated x3. MD Garnica called in regards to pain management and was told what medication to give and okay to move him to outpatient recovery and give patient PO pain mediation
--- NOTE | 2024-12-11 16:26 | ECG_ITS ---
Test Date: 2024-12-11 16:38:27 Measurements Intervals [place] Rate: 73 P: 23 AR: 188 QRS: -24 QRSD: 116 T: 5 QT: 420 QTc: 465 Interpretive Statements SINUS RHYTHM BORDERLINE LEFT AXIS DEVIATION [QRS AXIS < -20] LOW QRS VOLTAGE IN PRECORDIAL LEADS [QRS DEFLECTION < 1.0 mV IN CHEST LEADS] MODERATE INTRAVENTRICULAR CONDUCTION DELAY [110+ ms QRS DURATION] No previous ECG available for comparison Electronically Signed On 12-12-2024 16:31:26 CDT by Roshni Howard M.D.
--- NOTE | 2024-12-11 16:50 | WPDANESPN ---
Anes - Prog Note Post-Op Date/Time: 12/11/24 16:50 Cardiovascular status: normal Respiratory status: normal Airway patency: baseline Mental status: baseline Post-Op hydration status: normal Vital Signs: Last Vital Signs Temp 36.1 C L 12/11/24 14:47 Pulse 91 12/11/24 16:13 Resp 13 12/11/24 16:10 BP 130/78 12/11/24 16:13 Pulse Ox 98 12/11/24 16:10 O2 Del Method Room Air 12/11/24 16:13 O2 Flow Rate 8 12/11/24 15:02 Pain Score (VAS): 5 I/O: Intake & Output 12/11/24 12/11/24 12/11/24 07:59 15:59 23:59 Intake Total 400 Balance 400 Patient Feedback: Patient satisfied with anesthetic care. Other Findings: Pt just does not feel right. Can not describe exactly what is wrong. EKG no signs of ischemia. unable to compare to prior EKG. Sats occasionally drop. Will admit for observation. Discussed with Dr. Moran.
--- NOTE | 2024-12-11 17:01 | SUR.PHASEII ---
1700 - pt to be admitted for observation per Anesthesia (Dr. Tiwari) and Dr. Moran. Informed tobacco warehouse manager about unplanned admit. Awaiting for bed/ room number.
[2024-12-11] MEDS: oxyCODONE HCL (*CRX) 5 MG TAB IR PO (17:38)
--- NOTE | 2024-12-11 17:55 | SUR.PHASEII ---
This RN spoke with Dr Moran. notified of patient current Spo2 at 100 with 2L NC. states patient should remain on 2L NC overnight. Orders placed.
--- NOTE | 2024-12-11 18:24 | ADMGEN ---
This patient, Modesto Atwood, was admitted to 3 Med Surg Room 325-01. Patient/family oriented to hospital policies and general routines including ID bracelet, bed and alarms, visiting hours, pain management, procedures, bathroom and other care routines, personal items, smoking policy, room service/diet, and visiting hours. Information on how to activate the Rapid Response Team has been discussed. Patient/Family are encouraged to report perceived risks to care and to ask questions if they do not understand what they are told or what they should do.
[2024-12-12 00:15] VITALS: BP 121/77; PULSE 89; RESP 16; TEMP 36.3; O2SAT 100
[2024-12-12] MEDS: oxyCODONE/ACETAMINOPHEN (*CRX) 5-325 MG TABLET 1 TABLET PO ×3 (03:49→15:12)
[2024-12-12 04:00] VITALS: BP 135/74; PULSE 90; RESP 18; TEMP 36.3; O2SAT 100
[2024-12-12] MEDS: PANTOPRAZOLE 40 MG TABLET PO (08:46)
[2024-12-12 14:17] VITALS: BP 146/83; PULSE 98; RESP 18; TEMP 36.6; O2SAT 96
--- NOTE | 2024-12-12 15:39 | PM.PNORT ---
Progress Note: A&P Assessment and Plan (1) Traumatic tear of supraspinatus tendon of right shoulder: Code(s): S46.811A - Strain of other muscles, fascia and tendons at shoulder and upper arm level, right arm, initial encounter Status: Acute Assessment and Plan: POD 1 DOING WELL. OK TO DC HOME F/U IN 2 WEEKS. Subjective Subjective Date/Time Seen: 12/12/24 15:39 Interval history: pod 1 doing well. no cp or sob, mayte maintaing well on room air, pain controlled. Exam Extrem: Other: VSS AFEBRILE DRESSING DRY NV INTACT, BILATERAL CALVES NO PAIN OR TENDERNESS NEG HOMANS SIGN Objective Data Vital Signs Vital Signs: Vital Signs - 24 hr 12/11/24 15:45 12/11/24 16:00 12/11/24 16:10 Temperature Pulse Rate 74 73 75 Respiratory Rate 14 13 13 Blood Pressure 133/77 133/74 126/79 Pulse Oximetry 93 92 98 Oxygen Delivery Room Air Room Air Room Air Oxygen Flow Rate 12/11/24 16:13 12/11/24 16:40 12/11/24 17:10 Temperature Pulse Rate 91 77 69 Respiratory Rate Blood Pressure 130/78 136/69 120/60 Pulse Oximetry 98 93 Oxygen Delivery Room Air Room Air Room Air Oxygen Flow Rate 12/11/24 17:40 12/11/24 17:54 12/11/24 18:10 Temperature Pulse Rate 71 70 Respiratory Rate 16 Blood Pressure 133/59 L 134/70 Pulse Oximetry 100 100 100 Oxygen Delivery Nasal Cannula Nasal Cannula Nasal Cannula Oxygen Flow Rate 2 2 2 12/11/24 19:32 12/11/24 20:00 12/11/24 21:58 Temperature 36.0 C L 36.3 C L Pulse Rate 88 76 Respiratory Rate 18 20 Blood Pressure 144/80 H 123/69 Pulse Oximetry 99 100 100 Oxygen Delivery Nasal Cannula Oxygen Flow Rate 2 12/12/24 00:15 12/12/24 04:00 12/12/24 08:00 Temperature 36.3 C L 36.3 C L Pulse Rate 89 90 Respiratory Rate 16 18 Blood Pressure 121/77 135/74 Pulse Oximetry 100 100 Oxygen Delivery Room Air Oxygen Flow Rate 12/12/24 09:33 12/12/24 10:36 12/12/24 14:17 Temperature 36.6 C Pulse Rate 98 Respiratory Rate 18 Blood Pressure 146/83 H Pulse Oximetry 96 Oxygen Delivery Room Air Room Air Oxygen Flow Rate Intake/Output Intake/Output: Intake & Output 12/09/24 12/10/24 12/11/24 12/12/24 23:59 23:59 23:59 23:59 Intake Total 740 1590 Output Total 400 Balance 740 1190 Meds/Results Medications: Active Medications Generic Name Dose Route Start Last Admin Trade Name Freq PRN Reason Stop Dose Admin Acetaminophen 1,000 mg 12/11/24 18:02 12/11/24 18:30 Acetaminophen 500 Mg Tablet PO 1,000 mg Q6H PRN Administration PAIN RATED 1-3 Diazepam 5 mg 12/11/24 18:02 Diazepam (*Crx) 5 Mg Tablet PO BID PRN Spasms Miscellaneous Information 1 each 12/12/24 00:01 Naproxen Pain Rating? Is 4-6 Ok? XX 01/11/25 00:00 [facility] Naproxen 500 mg 12/11/24 18:02 Naproxen 500 Mg Tablet PO BID PRN pain Ondansetron HCl 4 mg 12/11/24 18:15 12/11/24 18:19 Ondansetron Inj 4 Mg/2 Ml Vial IV PUSH 4 mg Q6H PRN Administration Nausea And Vomiting Oxycodone/Acetaminophen 1 tablet 12/11/24 18:02 12/12/24 15:12 Oxycodone/Acetaminophen (*Crx) 5-325 Mg Tablet PO 1 tablet Q4H PRN Administration Pain Rated 7-10 Pantoprazole Sodium 40 mg 12/12/24 09:00 12/12/24 08:46 Pantoprazole 40 Mg Tablet PO 40 mg QAM EULALIO Administration
== END 2024-12-12 17:32 | disposition home health service (06) ==
LOC: ANHSURGERY 14:46 → ANH3MEDSUR 18:04
PROVIDERS: PCP Family Medicine; Visit Provider Orthopaedic Surgery
PROC: (CPT 23420; principal; 2024-12-11 12:00)
DX: S46.011A Strain of muscle(s) and tendon(s) of the rotator cuff of right shoulder, initial encounter (principal); W19.XXXA Unspecified fall, initial encounter
CPT/HCPCS: 23410; 93005; 97161; 97166; 97535; A9270; C1713; J0690; J1100; J1171; J2405; J2704; J3010; J7120

== ENCOUNTER 2025-01-02 07:12 | Outpatient (CLI) | payer MEDICARE, SELFPAY ==
--- OUTSIDE RECORDS SUMMARY | 2025-01-02 07:18 | XMS_ITS | Referral Summary ---
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 Gender Identity Not on file Sexual Orientation Not on file Last Filed Vital Signs Vital Sign Reading Time Taken Comments Blood Pressure 124/80 10/27/2023 2:00 PM CDT Pulse 79 10/27/2023 2:00 PM CDT Temperature 36.7 C (98.1 F) 06/05/2023 12:00 PM ROLLER DIE CUTTING MACHINE OPERATOR Respiratory Rate 15 06/05/2023 12:00 PM ROLLER DIE CUTTING MACHINE OPERATOR Oxygen Saturation 94% 06/05/2023 12:00 PM ROLLER DIE CUTTING MACHINE OPERATOR Inhaled Oxygen Concentration - - Weight 85.1 kg (187 lb 9.6 oz) 10/27/2023 2:00 P M CDT Height 170.2 cm (5' 7) 10/27/2023 2:00 PM CDT Body Mass Index 29.38 10/27/2023 2:00 PM CDT Plan of Treatment Not on file Medical Devices Implanted Type Area Cotton Ball Machine Tender Device Identifier Shelf Expiration Date Model / Serial / Lot [employer] Trufill Glue 1gm [facility] [id number] - [id number] Implanted:Qty: 1 on 05/25/2023 at [facility] [employer] 08/17/2024 [id number] / / [id number] [place] [address] HUMANA MEDICARE HMO HUMANA MEDICARE HMO Advance Directives For more information, please contact: [phone] * Full Code (Latest Code Status on File) Date Activated Date Inactivated Comments 05/24/2023 7:17 AM 05/26/2023 2:40 PM Care Teams Unit Coordinator Relationship Specialty Start Date End Date Kalpesh Pemberton MD PCP - General Family Practice 07/21/23
--- OUTSIDE RECORDS SUMMARY | 2025-01-02 07:18 | XMS_ITS | Clinical Summary ---
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 Gender Identity Not on file Sexual Orientation Not on file Plan of Treatment Health Maintenance Due Date Last Done Comments Hepatitis C Virus (HCV) Screening 1945 TdaP Immunization 1945 Zoster Immunization (2 of 3) 06/20/2017 04/25/2017 Respiratory Syncytial Virus (RSV) Immunization (Adult) (1 - 1-dose 75+ series) 2019 SARS-COV-2 Immunization ( season) 2024 Influenza Immunization (Season Ended) 2025 04/06/2020, 03/30/2019, 05/22/2018, Additional history exists DTaP/Tdap/Td Immunization Discontinued 05/29/2017 Pneumococcal Immunization (50+ years) Completed 07/13/2017, 07/04/2016, 07/01/2015, Additional history exists Pneumococcal Immunization Combined Discontinued 07/13/2017, 07/04/2016, 07/01/2015, Additional history exists Hepatitis B Immunization Aged Out No longer eligible based on patient's age to complete this topic Human Papillomavirus (HPV) Immunization Aged Out No longer eligible based on patient's age to complete this topic Meningococcal Immunization (ACWY) Aged Out No longer eligible based on patient's age to complete this topic Rotavirus Immunization Aged Out No lo nger eligible based on patient's age to complete this topic
--- OUTSIDE RECORDS SUMMARY | 2025-01-02 07:18 | XMS_ITS | Continuity of Care Document ---
Author Organization [facility] Address [address] [place] [address] Phone Care Team Providers Care Restaurant Host Name Role Phone Maurice Cao MD Unavailable Unavailable Medications Medication Instructions Dosage Effective Dates (start - stop) Status Comments FLONASE 50MCG APPLICS 2 QD - Acti ve Advance Directives Directive Yes / No Effective Date File Name No Information Encounters Encounter Description Practice Location Reason(s) For Visit Diagnoses Date Provider Providers Copied on Encounter [facility], [address] [place] [address], [id number], tel:[phone] [facility] No Information Nash Maurice. [address] [place] [address], [id number], . tel:[phone] [facility], [id number] [place] [address], [id number], tel:[phone] [facility] CHRONIC RHINITIS Nash Richards. [address] [place] [address], [id number], . tel:[phone] Family History Family Member Type Diagnosis Age At Onset No Information Payers Payer name Insurance type Covered republican ID Authoriza tion(s) No Information Social History [...]
--- OUTSIDE RECORDS SUMMARY | 2025-01-02 07:18 | XMS_ITS | Clinical Summary ---
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 Gender Identity Not on file Sexual Orientation Not on file Obstetrics History Last Filed Vital Signs Vital Sign Reading Time Taken Comments Blood Pressure 124/80 10/27/2023 2:00 PM CDT Pulse 79 10/27/2023 2:00 PM CDT Temperature 36.7 C (98.1 F) 06/05/2023 12:00 PM GRANTS ADMINISTRATOR Respiratory Rate 15 06/05/2023 12:00 PM GRANTS ADMINISTRATOR Oxygen Saturation 94% 06/05/2023 12:00 PM GRANTS ADMINISTRATOR Inhaled Oxygen Concentration - - Weight 85.1 [...] history exists Medical Devices Implanted Type Area Creative Consultant Device Identifier Shelf Expiration Date Model / Serial / Lot [employer] Davin Floyd 1gm [facility] [id number] - [id number] Implanted:Qty: 1 on 05/25/2023 at [facility] [employer] 08/17/2024 [id number] / / [id number] Insurance HUMANA MEDICARE HMO HUMANA MEDICARE HMO Advance Directives For more information, please contact: [phone] * Full Code (Latest Code Status on File) Date Activated Date Inactivated Comments 05/24/2023 7:17 AM 05/26/2023 2:40 PM Care Teams Screw Machine Repairer Relationship Specialty Start Date End Date Kalpesh Pemberton MD PCP - General Family Practice 07/21/23
[2025-01-02 07:59] LABS: Hematocrit 38.4 % (42.0-52.0); Hemoglobin 12.5 g/dL (14.0-18.0); Mean Corpuscular HGB Conc 32.6 g/dl (32-36); Mean Corpuscular Volume 101.3 fl (80-100); Platelet Count Result 305 k/mm3 (150-375); Red Blood Count 3.79 M/mm3 (4.6-6.20); Red Cell Distribution Width 12.8 % (11.5-14.5); White Blood Count 8.6 K/mm3 (4.5-10.0)
[2025-01-02 08:11] LABS: Alanine Aminotransferase 61 U/L (6-50); Albumin Level 3.7 g/dL (3.5-5.1); Alkaline Phosphatase 80 U/L (38-126); Anion Gap 7 mmol/L (4-12); Aspartate Amino Transferase 34 U/L (17-59); Bilirubin,Total 0.7 mg/dL (0.2-1.3); Blood Urea Nitrogen 16 mg/dL (9-20); Calcium 9.4 mg/dL (8.4-10.2); Carbon Dioxide 28 mmol/L (22-30); Chloride 104 mmol/L (98-107); Cholesterol 150 mg/dL (0-200); Estimated Glomerular Filt Rate > 60; Glucose 103 mg/dL (65-110); HDL Direct 32 mg/dL; Lipase 46 U/L (23-300); Potassium 4.1 mmol/L (3.4-5.0); Sodium 139 mmol/L (137-145); Total Protein 7.5 g/dL (6.3-8.2); Triglycerides 88 mg/dL (<150)
[2025-01-02 08:22] LABS: LDL Cholesterol Direct 80 mg/dL
[2025-01-02 08:41] LABS: Prostate Specific Antigen 1.7 ng/mL (< OR = 4.0)
== END 2025-01-02 07:13 | disposition home or self-care (01) ==
LOC: ANHLAB 07:13
PROVIDERS: PCP Family Medicine; Visit Provider Family Medicine
DX: R10.13 Epigastric pain (principal); I47.10 Supraventricular tachycardia, unspecified; I87.2 Venous insufficiency (chronic) (peripheral); E29.1 Testicular hypofunction; J32.9 Chronic sinusitis, unspecified; R09.82 Postnasal drip; R79.89 Other specified abnormal findings of blood chemistry; Z12.5 Encounter for screening for malignant neoplasm of prostate; Z13.6 Encounter for screening for cardiovascular disorders; Z86.39 Personal history of other endocrine, nutritional and metabolic disease; Z79.899 Other long term (current) drug therapy
CPT/HCPCS: 36415; 80053; 80061; 83690; 84153; 85027; G0103

== ENCOUNTER 2025-01-10 00:41 | Day surgery (SDC) | payer MEDICARE, SELFPAY ==
[2025-01-09 11:03] VITALS: BMI 27.6
--- NOTE | 2025-01-09 11:09 | PC.NURSE ---
Report to the Outpatient Waiting Room, entrance under the green pavilion located off [facility], at time __11:00am on date _01/10/25 . Planned Procedure Time: ___1:00pm .? Time changes happen often and if your time is changed the preop area will call you the afternoon before. - You and your visitor will be asked to self-screen and do not enter if you have any COVID symptoms. Please call surgeon if you need to reschedule. - A mask is optional within the hospital at this time. Patients may have clear liquids (water, carbonated beverages, clear teas, apple juice) until 3 hours prior to surgery with a maximum of 20 ounces. - No food from midnight until time of surgery and no smoking, or chewing tobacco (or any form of nicotine). No chewing gum, candy or mints. (1000am) Take only the following medications with a SIP of water on the morning of surgery: __Percocet if needed and Dooxyclcline as prescribed DO NOT STOP ANY OF YOUR OTHER PRESCRIPTION MEDICATIONS PRIOR TO SURGERY EXCEPT THE FOLLOWING Hold all vitamins and supplements for 3 days per anesthesiologist. Medications to discontinue per physician None Date to take last dose__None Please no make-up, nail albanian, hairspray, perfume, deodorant, or body powder the day of surgery.? No jewelry (including any body piercings) or valuables the day of surgery, leave them at home.? Please take a shower or bath the night before, or the morning of, surgery with an antibacterial soap.? Wear comfortable, loose fitting clothing.? - Jewelry must be removed prior to entering the operating room.? Rings and piercings that are not removed may be cut off. - The hospital will not accept responsibility for valuables.? - Please leave all valuables, including medications, at home the day of surgery. If you are going home after surgery, a licensed m48/m60 tank driver must drive you home.? - NO public transportation without another adult if you receive anesthesia. - We recommend that an adult stay with you for 24 hours following discharge. - We also recommend that you do not drive, make important decision, drink alcoholic beverages, or take any drugs that were not prescribed by your health care provider for at least 24 hours after your discharge time. Follow any additional instructions given to you from your surgeon. Telephone instructions given to ___Patient and asked if any additional questions and then verbalized understanding. Patient advised to call surgeon office or pre surgery nurse liaison [phone] if any additional questions.
--- NOTE | 2025-01-09 16:49 | PM.IMHP ---
H&P: HPI History of Present Illness Date/Time: 01/09/25 16:49 Chief Complaint: Right shoulder infection Narrative: 79-year-old gentleman 4 weeks status post right rotator cuff repair. Presented to the office this week with increased swelling and pain right shoulder. Aspiration of the swelling revealed purulent material with over 100,000 nucleated cells. G stain with Gram-positive cocci. Patient presents for operative treatment. Review of Systems Constitutional: Constitutional: Denies fever(s) Eyes: Eyes: Denies blurry vision ENT: Reports Normal hearing present Cardiovascular: Cardiovascular: Denies chest pain and Denies dyspnea Respiratory: Respiratory: Denies dyspnea and Denies wheezing Gastrointestinal: Gastrointestinal: Denies abdominal pain Genitourinary: Genitourinary: Denies urinary urgency Musculoskeletal: Musculoskeletal: Reports as per HPI and Denies numbness Integumentary/Breasts: Skin/Breast: Denies changing lesions and Denies sores Neurologic: Reports Normal hearing present, Denies behavioral changes, Denies confusion, Denies numbness and Denies convulsions Psychiatric: Psychiatric: Denies behavioral changes, Denies confusion and Denies hallucinations Endocrine: Endocrine: Denies heat intolerance Hematologic/Lymphatic: Hematologic/Lymphatic: Denies easy bleeding Allergic/Immunologic: Allergic/Immunologic: Denies wheezing PMFSH Past Medical History Medical History (Updated 01/09/25 @ 16:52 by Jarvis Olguin MD) Right shoulder pain Weakness of right upper extremity Traumatic tear of supraspinatus tendon of right shoulder Limited range of motion of shoulder History of high cholesterol Colon cancer screening Epigastric pain PAT (paroxysmal atrial tachycardia) Interstitial lung disease Acid reflux Surgical History Surgical History (Updated 01/09/25 @ 16:53 by Jarvis Olguin MD) S/P right rotator cuff repair History of repair of right rotator cuff 12/11/2024 History of cholecystectomy No pertinent past surgical history Family History Family History Sibling Hypertension Cancer Social History Social History Smoking status: Never smoker Second hand tobacco smoke exposure: Yes Alcohol intake: never Drinks per week: 1 Alcohol use details: WINE Substance use: never Substance use type: does not use Do You Feel Safe in your Home?: Yes Lack of Transportation: No Lack of Food: Never True Current Housing: I Have Housing Concerned About Future Housing: No Difficulty Paying Gas/Electric Bills: No Difficulty Paying for Meds: No Currently Unemployed: Decline to Answer Education: Associate Degree Difficulty w/ Childcare or Family Care: Decline to Answer Living arrangements: alone Gender identity (if verbalized by the patient): Male Spiritual care concerns: No Meds Home Medications and Allergies Home Medications ?Medication ?Instructions ?Recorded ?Confirmed ?Type omeprazole 20 mg capsule,delayed 20 mg PO DAILY 12/07/24 01/09/25 History release oxycodone-acetaminophen 5 mg-325 1 tablet PO Q6H PRN pain #40 tabs 12/11/24 01/09/25 Rx mg tablet (Percocet) doxycycline monohydrate 100 mg 100 mg PO BID 7 days #14 tabs 01/08/25 01/09/25 Rx tablet Allergies Allergy/AdvReac Type Severity Reaction Status Date / Time codeine Allergy Intermediate Unknown Verified 01/09/25 11:01 Exam Const: General: healthy appearing; No in distress or confusion Orientation/consciousness: oriented to person, oriented to place, oriented to time and No confusion HENMT: Head: normal to inspection, normocephalic and atraumatic Eyes: Conjunctivae: conjunctivae normal Sclera: sclerae normal Neck: Neck: supple and nontender Resp: Effort & Inspection: normal respiratory effort and no audible wheezes Cardio: Rate: regular rate Rhythm: regular rhythm Skin: General skin exam: no rashes or lesions noted Neuro: General: oriented to person, oriented to place, oriented to time and No confusion Extrem: Right upper extremity: shoulder/upper arm tenderness of the A-C joint, over the subacromial bursa and other (anterolateral acromion, joint), axillary nerve sensory function normal, abnormal ROM (Active FF 100, ABd 90, ER 40, IR L4) pain with active ROM in ABduction, in flexion and in internal rotation and pain with passive ROM with internal rotation and external rotation- and other (RC 4/5, Bicep 4/5, Deltoid 5-/5, ER 4/5), elbow/forearm normal ROM; no tenderness and no swelling, wrist normal ROM and radial pulse present; no tenderness and Extremity exam: right hand neuromotor exam normal wrist extension normal, thumb opposition normal, thumb IP flexion normal and fingers 2-5 ABduction normal, neurosensory exam normal radial nerve sensory function normal, ulnar nerve sensory function normal, median nerve sensory function normal and digital nerve sensory function normal and vascular exam radial pulse present and normal capillary refill; no tenderness, no swelling and no crepitus Left upper extremity: normal to inspection and shoulder/upper arm normal ROM (FF 130, Abd 125, ER 70, IR T7); no tenderness, no swelling, no ecchymosis and no crepitus Right lower extremity: normal to inspection Left lower extremity: normal to inspection Psych: Affect: normal affect Assessment and Plan Assessment and plan (1) S/P right rotator cuff repair: Code(s): Z98.890 - Other specified postprocedural states Status: Acute (2) Right shoulder pain: Qualifiers: Chronicity: acute Qualified Code(s): M25.511 - Pain in right shoulder Code(s): M25.511 - Pain in right shoulder Status: Acute (3) Infection of shoulder: Code(s): M00.9 - Pyogenic arthritis, unspecified Status: Acute Assessment and Plan: chief complaint right shoulder infection 1 month status post rotator cuff repair. Aspirated fluid shows purulent material. History, physical exam and radiographs reviewed with the patient. Discussed the condition, nature, etiology and course of natural history with the patient. Treatment options including surgical and nonoperative treatment were reviewed. Risks and benefits of each as well as alternatives reviewed. The patient's questions were answered. Conservative treatment ice, oral antibiotics. Patient presents for operative treatment. Plan Discussed nonoperative and operative treatment options with the patient. Risks and benefits of each as well as alternatives were reviewed. All of the patient's questions were answered. The risks of surgery reviewed including but not limited to: Neurovascular damage, wound complication, infection, blood clot, pulmonary embolus, stroke, myocardial infarction, and anesthetic risks up to and including . Continued pain and possible dysfunction were explained. Specific risks of the procedure including later recurrence of deformity. No guarantees were offered. If hardware used, discussed risk of failure/ breakage and possible need for removal. If complications occur, the patient understands the need for further treatment, possible further surgery. Patient verbalizes understanding and wishes to proceed. PLAN: Excisional debridement of right shoulder
[2025-01-10] VITALS (14 sets, daily range): BP systolic 100–134; BP diastolic 65–81; PULSE 63–88; RESP 11–18; TEMP 36.3–37; O2SAT 96–100; BMI 27.1
--- NOTE | 2025-01-10 06:48 | WPDHPUPDATE1 ---
History and Physical Update Update Date/Time: 01/10/25 06:48 History and Physical has been reviewed, including an updated exam of the patient. There are NO changes in the patient's condition. Risks, benefits, and alternatives have been discussed and questions answered. Patient agrees to proceed with procedure.
[2025-01-10] MEDS: LACTATED RINGERS 1,000 ML 30 ML IV CONT (12:10)
[2025-01-10] MEDS: KETOROLAC 15 MG/ML VIAL (*BKC) IV PUSH (12:20)
[2025-01-10] MEDS: ACETAMINOPHEN 500 MG TABLET 1000 MG PO (12:20)
--- NOTE | 2025-01-10 12:24 | WPDANESEPPF ---
Anes - Initial Pre Proc Eval Procedure: Operation Date: 01/10/25 12:30 Proposed Procedures p Incision and Drainage of Right Shoulder - Jarvis Olguin MD Date/Time: 01/10/25 12:24 Surgeon: Jarvis Olguin MD Pre Op Diagnosis: right shoulder post-op infection Patient Data Age: 79 Gender: M Height: 1.7 m Weight: 80 kg Allergies Allergy/AdvReac Type Severity Reaction Status Date / Time codeine Allergy Intermediate Unknown Verified 01/24/25 11:32 Home Medications ?Medication ?Instructions ?Recorded ?Confirmed ?Type omeprazole 20 mg capsule,delayed 20 mg PO DAILY 12/07/24 02/13/25 History release acetaminophen 325 mg tablet 650 mg (2 x 325 mg) PO Q6HR PRN 01/11/25 02/13/25 Rx Pain 1-3 or Fever #0 tabs oxycodone-acetaminophen 5 mg-325 1 tablet PO Q6H PRN pain #40 tabs 01/11/25 02/13/25 Rx mg tablet (Percocet) sennosides 8.6 mg-docusate sodium 2 tab-cap (2 x 8.6-50 mg) PO BID 01/11/25 02/13/25 Rx 50 mg tablet (Senokot-S) #60 tabs sulfamethoxazole 800 1 tablet PO Q12H #30 tabs 01/11/25 02/13/25 Rx mg-trimethoprim 160 mg tablet (Bactrim DS) Patient hx anesthesia problems: none Family hx anesthesia problems: none Results Review: All pre-operative results and documents have been reviewed as part of the pre-operative evaluation. [facility] Past Medical History Medical History GERD (gastroesophageal reflux disease) Brain bleed Hiatal hernia COPD (chronic obstructive pulmonary disease) Palpitations Right shoulder pain Weakness of right upper extremity Traumatic tear of supraspinatus tendon of right shoulder Limited range of motion of shoulder History of high cholesterol Colon cancer screening Epigastric pain PAT (paroxysmal atrial tachycardia) Interstitial lung disease Acid reflux Surgical History Surgical History Status post excisional debridement S/P right rotator cuff repair History of repair of right rotator cuff 12/11/2024 History of cholecystectomy No pertinent past surgical history Family History Family History Sibling Hypertension Cancer Social History Social History Smoking status: Never smoker Second hand tobacco smoke exposure: Yes Alcohol intake: never Alcohol use details: WINE Substance use: never Substance use type: does not use Do You Feel Safe in your Home?: Yes Lack of Transportation: No Lack of Food: Never True Current Housing: I Have Housing Concerned About Future Housing: No Difficulty Paying Gas/Electric Bills: No Difficulty Paying for Meds: No Currently Unemployed: Decline to Answer Education: Associate Degree Difficulty w/ Childcare or Family Care: Decline to Answer Living arrangements: alone Gender identity (if verbalized by the patient): Male Spiritual care concerns: No Anes - Eval Final PreProcedure Day of Procedure 01/10/25 12:24 Patient weight: overweight Heart: regular rate and rhythm Lungs: clear to auscultation Airway: Mallampati scale class II Neurological: alert and oriented Last oral intake: >/= 8 hours ASA classification: III Emergent: no Anesthetic plan: proceed Anesthesia type and monitoring: general LMA and standard monitoring Results Review: All pre-operative results and documents have been reviewed as part of the pre-operative evaluation. Informed Consent: The patient's anesthetic plan and its attendant risks and benefits were discussed with the patient/family/POA. Questions were solicited and answers provided to the satisfaction of the patient/family/POA.
[2025-01-10] MEDS: ceFAZolin 2 GM/D5W 50 ML 2 GM/50 ML BAG IVPB (12:59)
[2025-01-10] MEDS: ceFAZolin SODIUM 1 GM VIAL 2 GM (13:17)
[2025-01-10] MEDS: BUPivacaine HCL 0.5% 10 ML AMP 20 ML INFILTRATE (13:23)
--- NOTE | 2025-01-10 14:28 | P.OP_ITS ---
Procedure Note - Detailed Date of Procedure 01/10/25 Pre-op Diagnosis right shoulder post-op infection Post-op Diagnosis Same Procedure Performed Right shoulder excisional debridement including bone Surgeon Jarvis Olguin MD International Account Executive 1st assistant press operator Anesthesia General Indications 79-year-old gentleman who is 1 month status post right shoulder rotator cuff repair. Developed swelling over the shoulder over the past few days. Aspiration fluid revealed purulent material with high nucleated cell count. Presents now for operative treatment. Findings Right shoulder abscess with purulent material through the deltoid to the rotator cuff repair site with involved suture and anchors. Description of Procedure Patient identified in the preoperative holding. Informed consent given. Opera tive extremity marked. Patient received intravenous antibiotics. Patient brought to the operating room where underwent general anesthetic by anesthesia team. Positioned supine on operating room table. Time-out performed confirming the patient, site of the surgery and the plan. Bump placed under the right shoulder. Right arm was then prepped and draped usual sterile surgical fashion using ChloraPrep skin solution. Local anesthetic with 0.5% Marcaine plain. The previous dorsal shoulder incision was utilized in November with a 15 blade knife. The Vicryl suture in subcutaneous tissue was remove d. Edema in the deltoid was noted. The deltoid was then split and copious amounts of purulent material was found in the subdeltoid bursal area overlying the rotator cuff. This was cultured and sent for Gram stain. This was then suctioned out. Rotator cuff repair was visualized and was intact but the nonabsorbable suture and the anchors had purulent material. These were then sharply excised. The 2 visible anchors were removed from the bone. Bone was debrided with curette send rongeur. Any infected material was sharply excised with a 15 blade knife and passed off. The purulent material involve the sub deltoid bursa which tracked posteriorly into the posterior scapular area. Pulsatile lavage was then used with Ancef in the irrigant. 3 L were irrigated and suctioned out. Vancomycin powder was then placed into the general wound. A posterior drain was placed into the sub deltoid bursal space. Fascia was then closed with 0 Vicryl interrupted suture. Subcutaneous tissue. With 2 Vicryl interrupted suture and skin repaired with 3-0 interrupted suture. Sterile dressing applied. The patient was then woken from anesthesia, extubated and taken to the recovery room in stable condition. All sponge, needle, instrument counts were correct at the end of the case. Implants None. 2 suture anchors removed from the humeral head. Estimated Blood Loss 50 Drains Yes (1 CHETNA) Packing No Pathology Yes (Culture and gram's stain) Complications None Condition Stable Disposition PACU [facility] Billing Surgery - Charge Forward: Surgery Billing ([id number])
[2025-01-10] MEDS: fentaNYL CITRATE INJ (*CRX) 100 MCG/2 ML VIAL 25 MCG IV PUSH ×5 (14:40→14:58)
[2025-01-10] MEDS: HYDROmorphone HCL INJ (*CRX) 1 MG/ML SYR 0.25 MG IV PUSH ×4 (15:09→15:50)
--- NOTE | 2025-01-10 16:16 | ADMGEN ---
This patient, Modetso Atwood, was admitted to 3 Med Surg Room 331-01. Patient/family oriented to hospital policies and general routines including ID bracelet, bed and alarms, visiting hours, pain management, procedures, bathroom and other care routines, personal items, smoking policy, room service/diet, and visiting hours. Information on how to activate the Rapid Response Team has been discussed. Patient/Family are encouraged to report perceived risks to care and to ask questions if they do not understand what they are told or what they should do.
[2025-01-10] MEDS: SENNA/DOCUSATE SODIUM TABLET 2 TAB PO (17:21)
[2025-01-10] MEDS: oxyCODONE/ACETAMINOPHEN (*CRX) 5-325 MG TABLET 1 TABLET PO (18:48)
--- NOTE | 2025-01-10 21:39 | P.CONIM_ITS ---
Assessment and Plan Assessment and plan (1) History of high cholesterol: Code(s): Z86.39 - Personal history of other endocrine, nutritional and metabolic disease Status: Chronic Assessment and Plan: * No current treatment. * Will initiate heart healthy diet * Check lipid panel with a.m. labs (2) PAT (paroxysmal atrial tachycardia): Code(s): I47.1 - Supraventricular tachycardia Status: Chronic Assessment and Plan: * Reported history of. * No tachycardia noted in vital signs. * Consider telemetry if development of tachycardia. 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 HPI Date of Consult Consult date: 01/10/25 Requesting Physician: Jarvis Olguin MD Primary Care Provider: Kalpesh Pemberton MD Consult Narrative Narrative: [place] Atwood is a 79 year old male with past medical history of hyperlipidemia, paroxysmal atrial tachycardia, GERD and interstitial lung disease who is pod 0 from Orthopedic surgery by Dr. Olguin for a right shoulder debridement including bone from pyogenic arthritis. Patient's only home medication is omeprazole 20 mg daily. We are consulted today to provide medical management during his hospitalization. Patient is examined at the bedside and is without any acute complaints or symptoms. He reports his pain in his right shoulder is currently under control. G stain grew out Gram-positive cocci. Cultures of blood and wound are pending. Patient is without fever or abnormal vital signs. Review of Systems Review of Systems: All systems reviewed & are unremarkable except as noted in HPI and below PMFSH Past Medical History Medical History (Updated 01/10/25 @ 21:45 by Sabine Isaacs APN-Radha) GERD (gastroesophageal reflux disease) Brain bleed Hiatal hernia COPD (chronic obstructive pulmonary disease) Palpitations Right shoulder pain Weakness of right upper extremity Traumatic tear of supraspinatus tendon of right shoulder Limited range of motion of shoulder History of high cholesterol Colon cancer screening Epigastric pain PAT (paroxysmal atrial tachycardia) Interstitial lung disease Acid reflux Surgical History Surgical History (Updated 01/10/25 @ 21:46 by NOREEN Bailey) Status post excisional debridement S/P right rotator cuff repair History of repair of right rotator cuff 12/11/2024 History of cholecystectomy No pertinent past surgical history Family History Family History Sibling Hypertension Cancer Social History Social History Smoking status: Never smoker Second hand tobacco smoke exposure: Yes Alcohol intake: never Alcohol use details: WINE Substance use: never Substance use type: does not use Do You Feel Safe in your Home?: Yes Lack of Transportation: No Lack of Food: Never True Current Housing: I Have Housing Concerned About Future Housing: No Difficulty Paying Gas/Electric Bills: No Difficulty Paying for Meds: No Currently Unemployed: Decline to Answer Education: Associate Degree Difficulty w/ Childcare or Family Care: Decline to Answer Living arrangements: alone Gender identity (if verbalized by the patient): Male Spiritual care concerns: No Meds Home Medications and Allergies Home Medications ?Medication ?Instructions ?Recorded ?Confirmed ?Type omeprazole 20 mg capsule,delayed 20 mg PO DAILY 12/07/24 01/10/25 History release oxycodone-acetaminophen 5 mg-325 1 tablet PO Q6H PRN pain #40 tabs 12/11/24 01/09/25 Rx mg tablet (Percocet) doxycycline monohydrate 100 mg 100 mg PO BID 7 days #14 tabs 01/08/25 01/10/25 Rx tablet Allergies Allergy/AdvReac Type Severity Reaction Status Date / Time codeine Allergy Intermediate Unknown Verified 01/10/25 16:31 Vital Signs Vital Signs - 24 hr 01/10/25 10:50 01/10/25 14:13 01/10/25 14:27 Temperature 98.6 F 97.3 F L Pulse Rate 77 67 67 Respiratory Rate 16 16 15 Blood Pressure 100/65 134/81 122/72 Pulse Oximetry 99 96 99 Oxygen Delivery Room Air Simple Face Mask Simple Face Mask Oxygen Flow Rate 8 8 01/10/25 14:30 01/10/25 14:45 01/10/25 15:00 Temperature Pulse Rate 66 68 63 Respiratory Rate 14 11 L 14 Blood Pressure 122/72 127/68 133/75 Pulse Oximetry 100 100 100 Oxygen Delivery Room Air Room Air Room Air Oxygen Flow Rate 01/10/25 15:15 01/10/25 15:30 01/10/25 15:45 Temperature Pulse Rate 67 67 68 Respiratory Rate 14 12 16 Blood Pressure 131/79 123/78 119/78 Pulse Oximetry 99 97 97 Oxygen Delivery Room Air Room Air Room Air Oxygen Flow Rate 01/10/25 16:00 01/10/25 16:23 01/10/25 16:48 Temperature 97.7 F Pulse Rate 75 75 Respiratory Rate 18 18 Blood Pressure 133/79 130/77 Pulse Oximetry 98 100 Oxygen Delivery Room Air Room Air Oxygen Flow Rate 01/10/25 17:53 01/10/25 21:09 Temperature 98 F 97.4 F L Pulse Rate 87 88 Respiratory Rate 18 16 Blood Pressure 115/72 131/67 Pulse Oximetry 98 98 Oxygen Delivery Oxygen Flow Rate Exam Const: General: comfortable and no acute distress Other: Pleasant, elderly male patient appearing younger than stated age laying supine in bed at this time in no acute distress. HENMT: Face/Nose/Sinus: Normal nares present Mouth: Yes moist mucous membranes Eyes: General: appearance normal, both eyes and all related structures Neck: Neck: supple and no JVD Resp: Effort & Inspection: normal respiratory effort Cardio: Rate: regular rate Rhythm: regular rhythm Heart sounds: no gallops, no murmurs and no rubs GI: Inspection: non-distended Auscultation: normal bowel sounds Other: Soft, nontender Skin: General skin exam: normal color, no rashes or lesions noted and no erythema Lesions: no lesions noted Rashes: no rashes noted Wounds: no wounds Other: Right shoulder surgical dressing in place. Appears clean dry and intact. Neuro: General: gait normal Speech: normal speech Motor exam (neuro): Abnormal motor strength present (Decreased strength in operative extremity of right upper) and Motor abnormalites present (Disease active range of motion right upper extremity which is postoperative) Extrem: General: normal exam except as noted Other: Surgical dressing intact to right shoulder distal neurovascular status is intact. Psych: Mental Status: mental status grossly normal Affect: normal affect Quality VTE Prophylaxis VTE prophylaxis: mechanical ordered Hospitalist MIPS Advance Care Plan I have confirmed that the patient's Advanced Care Plan is present, code status is documented, or surrogate decision maker is listed in patient medical record.: Yes Medication Reconciliation I have utilized all available resources to obtain, update and review the patients current medications (includes all prescriptions, OTC, herbals, cannabis, and nutritional supplements).: Yes
[2025-01-11 01:53] VITALS: BP 116/79; PULSE 72; RESP 16; TEMP 36.2; O2SAT 98
[2025-01-11] MEDS: VANCOMYCIN 1,000 MG/NS 250 ML 1,000 MG/250 ML BAG 250 MG IVPB ×2 (02:34→14:10)
[2025-01-11 05:53] VITALS: BP 119/73; PULSE 72; RESP 14; TEMP 36.5; O2SAT 97
--- NOTE | 2025-01-11 07:10 | P.PNIM_ITS ---
Progress Note: A&P Assessment and Plan (1) Abscess of shoulder: Code(s): L02.419 - Cutaneous abscess of limb, unspecified Status: Acute Assessment and Plan: s/p debridement in OR 01/[address] Olguin Vancomycin power was applied to the wound. s/p 2 doses of IV Vancomycin and 1 dose of ancef --Antibiotics per ortho (2) History of high cholesterol: Code(s): Z86.39 - Personal history of other endocrine, nutritional and metabolic disease Status: Chronic Assessment and Plan: * No current treatment. * Will initiate heart healthy diet (3) PAT (paroxysmal atrial tachycardia): Code(s): I47.1 - Supraventricular tachycardia Status: Chronic Assessment and Plan: RRR on exam. No complaints of chest pain or shortness of breath. * No tachycardia noted in vital signs. * Repeat EKG and telemetry if new symptoms or tachycardia. 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 Time Spent With Patient Time: 38 minutes Subjective Date/time seen: 01/11/25 07:10 Interval history: Treating right shoulder abscess. VSS. OR cultures pending Reported a sore throat post intubation and hard stools but had a BP yesterday. Added chlorseptic spray and increased miralax to BID No reports of shortness of breath, dizziness, or chest pain Has trace LLE edema that he reports is unchanged in over a year. EKG NSR. regular rate on exam Review of Systems Review of Systems: All systems reviewed & are unremarkable except as noted in HPI and below Exam Narrative: General - Awake and alert. No acute distress Eyes - PERRLA, EOM intact ENT - No thrush, No erythema Neck - No noticeable or palpable swelling Lymph Nodes - No lymphadenopathy Cardiovascular - RRR no m/r/g, no JVD Lungs: Clear to auscultation, No wheezing, use of accessory muscles, no crackles or wheezes. Skin - Skin warm and dry, no wounds or rashes. Dressing to right shoulder. No visible bruising or bleeding Abdomen - Normal bowel sounds, abdomen soft and nontender Extremities - No edema, cyanosis or clubbing. Musculoskeletal - No tingling or numbness. normal sensation to right hand/arm Neurological ? Alert and oriented x 3, CN 2-12 grossly intact. Psych: Normal mood and affect Objective Data Vital Signs Vital Signs: Vital Signs - 24 hr 01/10/25 10:50 01/10/25 14:13 01/10/25 14:27 Temperature 98.6 F 97.3 F L Pulse Rate 77 67 67 Respiratory Rate 16 16 15 Blood Pressure 100/65 134/81 122/72 Pulse Oximetry 99 96 99 Oxygen Delivery Room Air Simple Face Mask Simple Face Mask Oxygen Flow Rate 8 8 01/10/25 14:30 01/10/25 14:45 01/10/25 15:00 Temperature Pulse Rate 66 68 63 Respiratory Rate 14 11 L 14 Blood Pressure 122/72 127/68 133/75 Pulse Oximetry 100 100 100 Oxygen Delivery Room Air Room Air Room Air Oxygen Flow Rate 01/10/25 15:15 01/10/25 15:30 01/10/25 15:45 Temperature Pulse Rate 67 67 68 Respiratory Rate 14 12 16 Blood Pressure 131/79 123/78 119/78 Pulse Oximetry 99 97 97 Oxygen Delivery Room Air Room Air Room Air Oxygen Flow Rate 01/10/25 16:00 01/10/25 16:23 01/10/25 16:48 Temperature 97.7 F Pulse Rate 75 75 Respiratory Rate 18 18 Blood Pressure 133/79 130/77 Pulse Oximetry 98 100 Oxygen Delivery Room Air Room Air Oxygen Flow Rate 01/10/25 17:53 01/10/25 21:09 01/10/25 23:27 Temperature 98 F 97.4 F L Pulse Rate 87 88 Respiratory Rate 18 16 Blood Pressure 115/72 131/67 Pulse Oximetry 98 98 98 Oxygen Delivery Room Air Oxygen Flow Rate 01/11/25 01:53 01/11/25 05:53 Temperature 97.1 F L 97.7 F Pulse Rate 72 72 Respiratory Rate 16 14 Blood Pressure 116/79 119/73 Pulse Oximetry 98 97 Oxygen Delivery Oxygen Flow Rate Intake/Output Intake/Output: Intake & Output 01/08/25 01/09/25 01/10/25 01/11/25 23:59 23:59 23:59 23:59 Intake Total 930 400 Output Total 10 300 Balance 920 100 Meds/Results Medications: Active Medications Generic Name Dose Route Start Last Admin Trade Name Freq PRN Reason Stop Dose Admin Acetaminophen 650 mg 01/10/25 16:08 Acetaminophen 325 Mg Tablet PO Q6HR PRN Pain 1-3 or Fever Diphenhydramine HCl 25 mg 01/10/25 16:08 Diphenhydramine Hcl Inj 50 Mg/Ml Vial IV PUSH Q6H PRN Itching Hydromorphone HCl 1 mg 01/10/25 16:12 Hydromorphone Hcl Inj (*Crx) 2 Mg/Ml Vial IV PUSH Q2H PRN Breakthrough Pain Rated 7-10 or NPO Hydromorphone HCl 0.5 mg 01/10/25 16:12 Hydromorphone Hcl Inj (*Crx) 2 Mg/Ml Vial IV PUSH Q2H PRN Breakthrough Pain Rated 4-6 or NPO Vancomycin HCl 1,000 mg in 250 mls @ 250 mls/hr 01/11/25 02:00 01/11/25 02:34 Vancomycin 1,000 Mg/Ns 250 Ml IVPB 01/11/25 14:59 250 mls/hr Q12H EULALIO Administration Ibuprofen 800 mg in 200 mls @ 400 mls/hr 01/10/25 16:08 Caldolor 800 Mg/200 Ml IVPB Q6H PRN Breakthrough Pain Rated 1-3 or NPO Naloxone HCl 0.1 mg 01/10/25 16:08 Naloxone Hcl 0.4 Mg/Ml Vial IV PUSH Q2M PRN Opiate Reversal Ondansetron HCl 4 mg 01/10/25 16:08 Ondansetron Inj 4 Mg/2 Ml Vial IV PUSH Q4H PRN Nausea And Vomiting Oxycodone/Acetaminophen 1 tablet 01/10/25 16:08 01/10/25 18:48 Oxycodone/Acetaminophen (*Crx) 5-325 Mg Tablet PO 1 tablet Q6H PRN Administration pain 7-10 Pantoprazole Sodium 40 mg 01/11/25 09:00 Pantoprazole 40 Mg Tablet PO QAM EULALIO Polyethylene Glycol 17 gm 01/11/25 09:00 Polyethylene Glycol 3350 17 Gm Powd.Pack PO QAM EULALIO Senna/Docusate Sodium 2 tab 01/10/25 17:00 01/10/25 17:21 Senna/Docusate Sodium Tablet PO 2 tab BID EULALIO Administration Quality VTE Prophylaxis VTE prophylaxis: mechanical ordered Hospitalist MIPS Advance Care Plan I have confirmed that the patient's Advanced Care Plan is present, code status is documented, or surrogate decision maker is listed in patient medical record.: Yes Medication Reconciliation I have utilized all available resources to obtain, update and review the patients current medications (includes all prescriptions, OTC, herbals, cannabis, and nutritional supplements).: Yes
[2025-01-11] MEDS: SENNA/DOCUSATE SODIUM TABLET 2 TAB PO (08:43)
[2025-01-11] MEDS: PANTOPRAZOLE 40 MG TABLET PO (08:43)
[2025-01-11] MEDS: polyethylene glycoL 3350 17 GM POWD.PACK PO (08:44)
[2025-01-11 09:14] LABS: Basophils Percent Auto 0.2 % (0.2-1.2); Eosinophils Absolute Auto 0.1 K/mm3 (0-0.3); Eosinophils Percent Auto 0.4 % (0-4.4); Hematocrit 37.4 % (42.0-52.0); Hemoglobin 12.3 g/dL (14.0-18.0); Immature Granulocyte Absolute 0.08 K/mm3 (0.00-0.031); Immature Granulocyte Percent A 0.6 % (0-0.5); Lymphocytes Absolute Auto 2.81 K/mm3 (0.9-3.2); Lymphocytes Percent Auto 21.2 % (18.3-44.2); Mean Corpuscular HGB Conc 32.9 g/dl (32-36); Mean Corpuscular Hemoglobin 32.7 pg (26-34); Mean Corpuscular Volume 99.5 fl (80-100); Mean Platelet Volume 11.2 fl (7.4-10.4); Monocytes Absolute Auto 0.9 K/mm3 (0.1-0.6); Monocytes Percent Auto 6.9 % (2.6-8.5); Neutrophils Absolute Auto 9.4 K/mm3 (1.3-6.7); Neutrophils Percent Auto 70.7 % (45.5-73.1); Platelet Count Result 298 k/mm3 (150-375); Red Blood Count 3.76 M/mm3 (4.6-6.20); Red Cell Distribution Width 12.6 % (11.5-14.5); White Blood Count 13.2 K/mm3 (4.5-10.0)
[2025-01-11 09:52] LABS: Anion Gap 8 mmol/L (4-12); Blood Urea Nitrogen 16 mg/dL (9-20); CRP. 8.5 mg/dL (<1.0); Calcium 9.3 mg/dL (8.4-10.2); Carbon Dioxide 25 mmol/L (22-30); Chloride 103 mmol/L (98-107); Cholesterol 156 mg/dL (0-200); Estimated CRCL calculation 55 ml/min; Estimated Glomerular Filt Rate > 60; Glucose 98 mg/dL (65-110); HDL Direct 30 mg/dL; Potassium 3.8 mmol/L (3.4-5.0); Sodium 136 mmol/L (137-145); Triglycerides 87 mg/dL (<150)
[2025-01-11 10:00] LABS: LDL Cholesterol Direct 83 mg/dL
[2025-01-11 10:02] LABS: Erythrocyte Sedimentation Rate 105 mm/hr (0-20)
[2025-01-11 13:53] VITALS: BP 116/74; PULSE 74; RESP 15; TEMP 36.3; O2SAT 98
--- NOTE | 2025-01-11 14:30 | PM.PNORT ---
Progress Note: A&P Assessment and Plan (1) Status post excisional debridement: Code(s): Z98.890 - Other specified postprocedural states Status: Acute (2) Infection of shoulder: Code(s): M00.9 - Pyogenic arthritis, unspecified Status: Acute Assessment and Plan: Postoperative day 1 right shoulder debridement. Operative findings reviewed with the patient. 24 hours of IV antibiotics. Patient would like to go home. Plan to discharge home on oral Antibiotics. Cultures pending. Sling right upper extremity. Limited use and activity right arm . Follow up in orthopedic office next week. Subjective Subjective Date/Time Seen: 01/11/25 14:30 Post Op day: 1 Principal diagnosis: RT shoulder infection Interval history: Hospital day 1 following right shoulder debridement. Found to have abscess coming from the surgical repair side of the rotator cuff. Shoulder pain yesterday, better today. G stain negative, however, was on 2 days of antibiotics. Exam Const: General: comfortable; No acute distress Resp: Effort & Inspection: normal respiratory effort and no audible wheezes Extrem: Right upper extremity: normal capillary refill, shoulder/upper arm swelling of the shoulder joint anteriorly ( Mild) and anterolaterally ( mild) and other ( incision clean dry and intact. Drain removed.) and Extremity exam: right hand normal to inspection, neuromotor exam normal wrist extension normal, thumb opposition normal, thumb IP flexion normal, thumb ADduction normal and fingers 2-5 ABduction normal, neurosensory exam normal radial nerve sensory function normal, ulnar nerve sensory function normal, median nerve sensory function normal and digital nerve sensory function normal and vascular exam radial pulse present and normal capillary refill Right lower extremity: lower leg ( Negative Homans sign), ankle Details: normal ROM ( dorsiflexion and plantar flexion intact) and foot Details: vascular exam Details: dorsalis pedis pulse present and normal capillary refill, tendon exam Details: active flexion normal and active extension normal and motor-sensory exam Details: light-touch normal Location: in all toes; no edema Left lower extremity: normal to inspection, ankle Details: normal ROM and foot Details: vascular exam Details: dorsalis pedis pulse present and normal capillary refill and motor-sensory exam light-touch normal in all toes; no edema Objective Data Vital Signs Vital Signs: Vital Signs - 24 hr 01/10/25 14:45 01/10/25 15:00 01/10/25 15:15 Temperature Pulse Rate 68 63 67 Respiratory Rate 11 L 14 14 Blood Pressure 127/68 133/75 131/79 Pulse Oximetry 100 100 99 Oxygen Delivery Room Air Room Air Room Air 01/10/25 15:30 01/10/25 15:45 01/10/25 16:00 Temperature Pulse Rate 67 68 75 Respiratory Rate 12 16 18 Blood Pressure 123/78 119/78 133/79 Pulse Oximetry 97 97 98 Oxygen Delivery Room Air Room Air Room Air 01/10/25 16:23 01/10/25 16:48 01/10/25 17:53 Temperature 97.7 F 98 F Pulse Rate 75 87 Respiratory Rate 18 18 Blood Pressure 130/77 115/72 Pulse Oximetry 100 98 Oxygen Delivery Room Air 01/10/25 21:09 01/10/25 23:27 01/11/25 01:53 Temperature 97.4 F L 97.1 F L Pulse Rate 88 72 Respiratory Rate 16 16 Blood Pressure 131/67 116/79 Pulse Oximetry 98 98 98 Oxygen Delivery Room Air 01/11/25 05:53 01/11/25 08:26 01/11/25 08:43 Temperature 97.7 F Pulse Rate 72 Respiratory Rate 14 Blood Pressure 119/73 Pulse Oximetry 97 Oxygen Delivery Room Air Room Air 01/11/25 09:13 Temperature Pulse Rate Respiratory Rate Blood Pressure Pulse Oximetry Oxygen Delivery Room Air Intake/Output Intake/Output: Intake & Output 01/08/25 01/09/25 01/10/25 01/11/25 23:59 23:59 23:59 23:59 Intake Total 930 1750 Output Total 10 300 Balance 920 1450 Meds/Results Medications: Active Medications Generic Name Dose Route Start Last Admin Trade Name Freq PRN Reason Stop Dose Admin Acetaminophen 650 mg 01/10/25 16:08 Acetaminophen 325 Mg Tablet PO Q6HR PRN Pain 1-3 or Fever Diphenhydramine HCl 25 mg 01/10/25 16:08 Diphenhydramine Hcl Inj 50 Mg/Ml Vial IV PUSH Q6H PRN Itching Hydromorphone HCl 1 mg 01/10/25 16:12 Hydromorphone Hcl Inj (*Crx) 2 Mg/Ml Vial IV PUSH Q2H PRN Breakthrough Pain Rated 7-10 or NPO Hydromorphone HCl 0.5 mg 01/10/25 16:12 Hydromorphone Hcl Inj (*Crx) 2 Mg/Ml Vial IV PUSH Q2H PRN Breakthrough Pain Rated 4-6 or NPO Vancomycin HCl 1,000 mg in 250 mls @ 250 mls/hr 01/11/25 02:00 01/11/25 14:10 Vancomycin 1,000 Mg/Ns 250 Ml IVPB 01/11/25 14:59 250 mls/hr Q12H EULALIO Administration Ibuprofen 800 mg in 200 mls @ 400 mls/hr 01/10/25 16:08 Caldolor 800 Mg/200 Ml IVPB Q6H PRN Breakthrough Pain Rated 1-3 or NPO Naloxone HCl 0.1 mg 01/10/25 16:08 Naloxone Hcl 0.4 Mg/Ml Vial IV PUSH Q2M PRN Opiate Reversal Ondansetron HCl 4 mg 01/10/25 16:08 Ondansetron Inj 4 Mg/2 Ml Vial IV PUSH Q4H PRN Nausea And Vomiting Oxycodone/Acetaminophen 1 tablet 01/10/25 16:08 01/10/25 18:48 Oxycodone/Acetaminophen (*Crx) 5-325 Mg Tablet PO 1 tablet Q6H PRN Administration pain 7-10 Pantoprazole Sodium 40 mg 01/11/25 09:00 01/11/25 08:43 Pantoprazole 40 Mg Tablet PO 40 mg QAM EULALIO Administration Phenol 1 spray 01/11/25 11:40 Phenol/Sod Pheno [place] (*Bkc) MUCOUS MEM PRN PRN Sore Throat Polyethylene Glycol 17 gm 01/11/25 17:00 Polyethylene Glycol 3350 17 Gm Powd.Pack PO BID EULALIO Senna/Docusate Sodium 2 tab 01/10/25 17:00 01/11/25 08:43 Senna/Docusate Sodium Tablet PO 2 tab BID EULALIO Administration Labs Labs: Laboratory Results - last 24 hr 01/11/25 08:07 WBC 13.2 H RBC 3.76 L Hgb 12.3 L Hct 37.4 L MCV 99.5 MCH 32.7 MCHC 32.9 RDW 12.6 Plt Count 298 MPV 11.2 H Immature Gran % (Auto) 0.6 H Neut % (Auto) 70.7 Lymph % (Auto) 21.2 [place] % (Auto) 6.9 Eos % (Auto) 0.4 Baso % (Auto) 0.2 Lymph # (Auto) 2.81 [place] # (Auto) 0.9 H Eos # (Auto) 0.1 Baso # (Auto) 0.0 Abs Immat Gran (auto) 0.08 H Absolute Neuts (auto) 9.4 H Absolute Nucleated RBC 0.000 Nucleated RBC % 0.0 ESR 105 H Sodium 136 L Potassium 3.8 Chloride 103 Carbon Dioxide 25 Anion Gap 8 BUN 16 Creatinine 0.87 Estim Creat Clear Calc 55 Estimated GFR > 60 Glucose 98 Calcium 9.3 C-Reactive Protein 8.5 H Triglycerides 87 Cholesterol 156 LDL Cholesterol Direct 83 HDL Direct 30
--- NOTE | 2025-01-11 14:51 | P.DS_ITS ---
DS: Admitting Diagnosis Discharge Date January 11, 2025 Admitting Diagnosis right shoulder infection DS: Discharge Diagnosis Discharge Diagnosis (1) Infection of shoulder: Code(s): M00.9 - Pyogenic arthritis, unspecified Status: Acute Assessment and Plan: right shoulder debridement January 10, 2025. 24 hours of IV antibiotics. Dressing and drain removed postoperative day 1. Sling right arm. Discharge home on oral antibiotics. (2) Abscess of shoulder: Code(s): L02.419 - Cutaneous abscess of limb, unspecified Status: Acute Assessment and Plan: Oral Bactrim And doxycycline. (3) Right shoulder pain: Qualifiers: Chronicity: acute Qualified Code(s): M25.511 - Pain in right shoulder Code(s): M25.511 - Pain in right shoulder Status: Acute Assessment and Plan: oxycodone prescriptions sent to pharmacy. Plan Sling right arm, ice. Pain control. Follow up in orthopedic office next week. DS: Summary Hospital Course Reason for hospitalization: Right shoulder infection Hospital Course: emitted taken to the operating room on January 10. Right shoulder debridement with removal of previous rotator cuff fixation. Drain placed and removed postoperative day 1. IV antibiotics with vancomycin times 24 hours. Sling. Discharge Home on oral antibiotics. Status at Discharge Cognitive/behavioral status at discharge: stable Functional status at discharge: independent ambulation Overall status at discharge: patient is back to baseline Time Spent with Patient Time attestation: Total time spent providing and/or coordinating discharge services: Exam Const: General: comfortable; No acute distress Resp: Effort & Inspection: normal respiratory effort and no audible wheezes Extrem: Right upper extremity: normal capillary refill, shoulder/upper arm swelling of the shoulder joint anteriorly ( Mild) and anterolaterally ( mild) and other ( incision clean dry and intact. Drain removed.) and Extremity exam: right hand normal to inspection, neuromotor exam normal wrist extension normal, thumb opposition normal, thumb IP flexion normal, thumb ADduction normal and fingers 2-5 ABduction normal, neurosensory exam normal radial nerve sensory function normal, ulnar nerve sensory function normal, median nerve sensory function normal and digital nerve sensory function normal and vascular exam radial pulse present and normal capillary refill Right lower extremity: lower leg ( Negative Homans sign), ankle Details: normal ROM ( dorsiflexion and plantar flexion intact) and foot Details: vascular exam Details: dorsalis pedis pulse present and normal capillary refill, tendon exam Details: active flexion normal and active extension normal and motor-sensory exam Details: light-touch normal Location: in all toes; no edema Left lower extremity: normal to inspection, ankle Details: normal ROM and foot Details: vascular exam Details: dorsalis pedis pulse present and normal capillary refill and motor-sensory exam light-touch normal in all toes; no edema DS: Data Data Completed and Pending Labs on day of discharge: Labs from last 24 hours 01/11/25 08:07 WBC 13.2 H RBC 3.76 L Hgb 12.3 L Hct 37.4 L MCV 99.5 MCH 32.7 MCHC 32.9 RDW 12.6 Plt Count 298 MPV 11.2 H Immature Gran % (Auto) 0.6 H Neut % (Auto) 70.7 Lymph % (Auto) 21.2 [place] % (Auto) 6.9 Eos % (Auto) 0.4 Baso % (Auto) 0.2 Lymph # (Auto) 2.81 [place] # (Auto) 0.9 H Eos # (Auto) 0.1 Baso # (Auto) 0.0 Abs Immat Gran (auto) 0.08 H Absolute Neuts (auto) 9.4 H Absolute Nucleated RBC 0.000 Nucleated RBC % 0.0 ESR 105 H Sodium 136 L Potassium 3.8 Chloride 103 Carbon Dioxide 25 Anion Gap 8 BUN 16 Creatinine 0.87 Estim Creat Clear Calc 55 Estimated GFR > 60 Glucose 98 Calcium 9.3 C-Reactive Protein 8.5 H Triglycerides 87 Cholesterol 156 LDL Cholesterol Direct 83 HDL Direct 30 Preliminary micro results at discharge 01/10/25 13:27 Anaerobic Culture - Preliminary Shoulder Right 01/10/25 13:27 Anaerobic Culture - Preliminary Shoulder Right Discharge Plan Discharge Patient Disposition: Home Discharge Instructions: Orthopedic Recommendations Dr. Norman Moran/Dr. Jarvis Olguin [phone] * Limit Activity and Weight Bearing RUE. Range of motion as tolerated. * Pain control. Ice. Sling when up. * Monitor dressing. Keep clean, dry and intact. Avoid showering. * Antibiotics at discharge as prescribed. * Follow up with Dr. Moran next week. See appt time below. Patient Language: Frisian Stand Alone Forms: General Discharge Instructions Follow-up/Referrals: Norman Moran MD [Physician] - 01/17/25 9:15 am Discharge Medications: New acetaminophen 325 mg Tablet 650 mg PO Q6HR PRN (Reason: Pain 1-3 or Fever) Qty: 0 0RF sennosides-docusate sodium [Senokot-S] 8.6-50 mg Tablet 2 tab-cap PO BID Qty: 60 1RF sulfamethoxazole-trimethoprim [Bactrim DS] 800-160 mg tablet 1 tablet PO Q12H Qty: 30 1RF Continued doxycycline monohydrate 100 mg tablet 100 mg PO BID 7 Days Qty: 14 0RF oxycodone-acetaminophen [Percocet] 5-325 mg tablet 1 tablet PO Q6H PRN (Reason: pain) Qty: 40 0RF omeprazole 20 mg capsule,delayed release(DR/EC) 20 mg PO DAILY
== END 2025-01-11 15:47 | disposition home or self-care (01) ==
LOC: ANHSURGERY 14:29 → ANH3MEDSUR 16:15
PROVIDERS: PCP Family Medicine; Visit Provider Orthopaedic Surgery
PROC: (CPT 11044; principal; 2025-01-10 12:30)
DX: T81.42XA Infection following a procedure, deep incisional surgical site, initial encounter (principal); L02.413 Cutaneous abscess of right upper limb; E78.00 Pure hypercholesterolemia, unspecified; I47.19 Other supraventricular tachycardia; K21.9 Gastro-esophageal reflux disease without esophagitis; J44.9 Chronic obstructive pulmonary disease, unspecified; R00.2 Palpitations; M00.9 Pyogenic arthritis, unspecified; J84.9 Interstitial pulmonary disease, unspecified; Y83.8 Other surgical procedures as the cause of abnormal reaction of the patient, or of later complication, without mention of misadventure at the time of the procedure; Z79.891 Long term (current) use of opiate analgesic; Z98.890 Other specified postprocedural states; Z90.49 Acquired absence of other specified parts of digestive tract; Z86.39 Personal history of other endocrine, nutritional and metabolic disease; Z80.9 Family history of malignant neoplasm, unspecified
CPT/HCPCS: 11044; 36415; 80048; 80061; 85025; 85652; 86140; 87070; 87075; 87205; 97161; 97165; A9270; J0690; J1100; J1171; J1885; J2371; J2405; J2704; J3010; J3370; J7120

== ENCOUNTER 2025-02-01 13:55 | Outpatient (CLI) | payer MEDICARE, SELFPAY ==
--- NOTE | ~2025-02-01 | US_ITS ---
US soft tissue UE LT 02/01/2025 14:13 Indication: Residual foreign body in soft tissues of left hand Procedure: High-resolution Limited ultrasound left hand Comparison: Left hand series dated 01/24/2025 Findings: There is a possible thrombosed superficial vein along the dorsal ulnar aspect of the hand. No echogenic foreign bodies are identified Impression: 1: No echogenic foreign bodies identified. 2: Possible thrombosed superficial vein dorsal ulnar aspect of the hand. Reviewed, dictated and finalized at location A. Impression: 1: No echogenic foreign bodies identified. 2: Possible thrombosed superficial vein dorsal ulnar aspect of the hand.
== END 2025-02-01 13:56 | disposition home or self-care (01) ==
LOC: GOSHIMG 13:55
PROVIDERS: PCP Orthopaedic Surgery; Visit Provider Orthopaedic Surgery
DX: M79.5 Residual foreign body in soft tissue (principal)
CPT/HCPCS: 99199; 76882

== ENCOUNTER 2025-02-13 09:33 | Outpatient (CLI) | payer MEDICARE, SELFPAY ==
--- OUTSIDE RECORDS SUMMARY | 2025-02-13 07:40 | XMS_ITS | Clinical Summary ---
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 Gender Identity Not on file Sexual Orientation Not on file Obstetrics History Last Filed Vital Signs Vital Sign Reading Time Taken Comments Blood Pressure 124/80 10/27/2023 2:00 PM CDT Pulse 79 10/27/2023 2:00 PM CDT Temperature 36.7 C (98.1 F) 06/05/2023 12:00 PM SHOPPER'S AIDE Respiratory Rate 15 06/05/2023 12:00 PM SHOPPER'S AIDE Oxygen Saturation 94% 06/05/2023 12:00 PM SHOPPER'S AIDE Inhaled Oxygen Concentration - - Weight 85.1 [...] Fall Risk Assessment 06/05/2024 06/05/2023 Influenza Vaccine (#1) 2025 3, 02/27/2023, 04/24/2022, Additional history exists Pneumococcal vaccine 65+ Completed 017, 07/04/2016, 07/01/2015, Additional history exists Medical Devices Implanted Type Area Coin Teller Device Identifier Shelf Expiration Date Model / Serial / Lot [employer] Davin Floyd 1gm [facility] [id number] - [id number] Implanted:Qty: 1 on 05/25/2023 at [facility] [employer] 08/17/2024 [id number] / / [id number] Insurance HUMANA MEDICARE HMO HUMANA MEDICARE HMO Advance Directives For more information, please contact: [phone] * Full Code (Latest Code Status on File) Date Activated Date Inactivated Comments 05/24/2023 7:17 AM 05/26/2023 2:40 PM Care Teams Golf Course Architect Relationship Specialty Start Date End Date Kalpesh Pemberton MD PCP - General Family Practice 07/21/23
--- OUTSIDE RECORDS SUMMARY | 2025-02-13 07:40 | XMS_ITS | Referral Summary ---
Author Organization [facility] [address] [place] [address] Care Team Providers Care Fiberline Supervisor Name Role Phone Kalpesh Pemberton MD Primary Care Provider [phone] Allergies No known active allergies Medications omeprazole [...] on file Legal Sex Male 2:18 AM HEALTH NAVIGATOR Gender Identity Not on file Sexual Orientation Not on file Last Filed Vital Signs Vital Sign Reading Time Taken Comments Blood Pressure 124/80 10/27/2023 2:00 PM CDT Pulse 79 10/27/2023 2:00 PM CDT Temperature 36.7 C (98.1 F) 06/05/2023 12:00 PM HEALTH NAVIGATOR Respiratory Rate 15 06/05/2023 12:00 PM HEALTH NAVIGATOR Oxygen Saturation 94% 06/05/2023 12:00 PM HEALTH NAVIGATOR Inhaled Oxygen Concentration - - Weight 85.1 kg (187 lb 9.6 oz) 10/27/2023 2:00 P M CDT Height 170.2 cm (5' 7) 10/27/2023 2:00 PM CDT Body Mass Index 29.38 10/27/2023 2:00 PM CDT Plan of Treatment Not on file Medical Devices Implanted Type Area Casting Molder Device Identifier Shelf Expiration Date Model / Serial / Lot [employer] Trufill Glue 1gm [facility] [id number] - [id number] Implanted:Qty: 1 on 05/25/2023 at [facility] [employer] 08/17/2024 [id number] / / [id number] [place] [address] HUMANA MEDICARE HMO HUMANA MEDICARE HMO Advance Directives For more information, please contact: [phone] * Full Code (Latest Code Status on File) Date Activated Date Inactivated Comments 05/24/2023 7:17 AM 05/26/2023 2:40 PM Care Teams Fiberline Supervisor Relationship Specialty Start Date End Date Kalpesh Pemberton MD PCP - General Family Practice 07/21/23
--- OUTSIDE RECORDS SUMMARY | 2025-02-13 07:40 | XMS_ITS | Clinical Summary ---
Author Organization [facility] Address [address] [place] [address] Care Team Providers Care Electrical Apprentice Name Role Phone Obed Ireland DO Primary Care Provider [phone] Allergies No known active allergies Medications sucralfate [...] 10:13 AM CDT Height 168.9 cm (5' 6.5) 04/19/2019 10:13 AM CD T Body Mass [...] complete this topic Insurance HUMANA Care Teams Electrical Apprentice Relationship Specialty Start Date End Date Obed Ireland DO [address] [address] PCP - General INTERNAL MEDICINE 04/19/19
--- OUTSIDE RECORDS SUMMARY | 2025-02-13 07:41 | XMS_ITS | Clinical Summary ---
Author Organization [facility] Care Team Providers Care Him Director Name Role Phone Unavailable Primary Care Provider Unavailabl e Social History Tobacco Use Types Packs/Day Years Used Date Smoking Tobacco: Never Assessed Sex and Gender Information Value Date Recorded Sex Assigned at Not on file Legal Sex Male 2:51 PM LICENSED ELECTRICIAN Gender Identity Not on file Sexual Orientation Not on file Plan of Treatment Health Maintenance Due Date Last Done Comments Hepatitis C Virus (HCV) Screening 1945 TdaP Immunization 1945 Zoster Immunization (2 of 3) 06/20/2017 04/25/2017 Respiratory Syncytial Virus (RSV) Immunization (Adult) (1 - 1-dose 75+ series) 2019 SARS-COV-2 Immunization (2023- season) 2024 Influenza Immunization (#1) 2025 09, 03/30/2019, 05/22/2018, Additional history exists DTaP/Tdap/Td Immunization [...]
[2025-02-13 08:27] LABS: Hematocrit 41.2 % (42.0-52.0); Hemoglobin 13.6 g/dL (14.0-18.0); Immature Granulocyte Percent A 0.5 % (0-0.5); Lymphocytes Absolute Auto 2.36 K/mm3 (0.9-3.2); Mean Corpuscular HGB Conc 33.0 g/dl (32-36); Mean Corpuscular Hemoglobin 32.8 pg (26-34); Mean Corpuscular Volume 99.3 fl (80-100); Nucleated Red Blood Cells Absolute Auto 0.000 K/mm3 (0.0-0.012); Nucleated Red Blood Cells Perc 0.0 % (0.0-0.2); Platelet Count Result 182 k/mm3 (150-375); Red Blood Count 4.15 M/mm3 (4.6-6.20); White Blood Count 6.0 K/mm3 (4.5-10.0)
[2025-02-13 08:51] LABS: Iron 109 ug/dL (49-181)
[2025-02-13 08:58] LABS: Alanine Aminotransferase 31 U/L (6-50); Albumin Level 4.1 g/dL (3.5-5.1); Alkaline Phosphatase 80 U/L (38-126); Aspartate Amino Transferase 33 U/L (17-59); Bilirubin,Total 0.6 mg/dL (0.2-1.3); Total Protein 7.3 g/dL (6.3-8.2)
[2025-02-13 09:02] LABS: Percent Iron Saturation 37 % (20-50)
[2025-02-13 09:32] LABS: Ferritin 153.00 ng/mL (11.1-264)
--- OUTSIDE RECORDS SUMMARY | 2025-02-13 09:54 | XMS_ITS | Clinical Summary ---
Author Organization [facility] [address] [place] [address] Care Team Providers Care Sql Server Dba Name Role Phone Kalpesh Pemberton MD Primary Care Provider [phone] Allergies No known active allergies Medications omeprazole [...] on file Legal Sex Male 2:18 AM STUDENT Gender Identity Not on file Sexual Orientation Not on file Obstetrics History Last Filed Vital Signs Vital Sign Reading Time Taken Comments Blood Pressure 124/80 10/27/2023 2:00 PM CDT Pulse 79 10/27/2023 2:00 PM CDT Temperature 36.7 C (98.1 F) 06/05/2023 12:00 PM STUDENT Respiratory Rate 15 06/05/2023 12:00 PM STUDENT Oxygen Saturation 94% 06/05/2023 12:00 PM STUDENT Inhaled Oxygen Concentration - - Weight 85.1 [...] history exists Medical Devices Implanted Type Area Report Writer Device Identifier Shelf Expiration Date Model / Serial / Lot [employer] Davin Floyd 1gm [facility] [id number] - [id number] Implanted:Qty: 1 on 05/25/2023 at [facility] [employer] 08/17/2024 [id number] / / [id number] Insurance HUMANA MEDICARE HMO HUMANA MEDICARE HMO Advance Directives For more information, please contact: [phone] * Full Code (Latest Code Status on File) Date Activated Date Inactivated Comments 05/24/2023 7:17 AM 05/26/2023 2:40 PM Care Teams Sql Server Dba Relationship Specialty Start Date End Date Kalpesh Pemberton MD PCP - General Family Practice 07/21/23
--- OUTSIDE RECORDS SUMMARY | 2025-02-13 09:54 | XMS_ITS | Clinical Summary ---
Author Organization [facility] Address [address] [place] [address] Care Team Providers Care Lockstitch Front Maker Name Role Phone Obed Ireland DO Primary Care Provider [phone] Allergies No known active allergies Medications sucralfate [...] complete this topic Insurance HUMANA Care Teams Lockstitch Front Maker Relationship Specialty Start Date End Date Obed Ireland DO [address] [address] PCP - General INTERNAL MEDICINE 04/19/19
--- OUTSIDE RECORDS SUMMARY | 2025-02-13 09:54 | XMS_ITS | Referral Summary ---
Author Organization [facility] [address] [place] [address] Care Team Providers Care City Recorder Name Role Phone Kalpesh Pemberton MD Primary Care Provider [phone] Allergies No known active allergies Medications omeprazole [...] on file Legal Sex Male 2:18 AM GENERAL SCRAP WORKER Gender Identity Not on file Sexual Orientation Not on file Last Filed Vital Signs Vital Sign Reading Time Taken Comments Blood Pressure 124/80 10/27/2023 2:00 PM CDT Pulse 79 10/27/2023 2:00 PM CDT Temperature 36.7 C (98.1 F) 06/05/2023 12:00 PM GENERAL SCRAP WORKER Respiratory Rate 15 06/05/2023 12:00 PM GENERAL SCRAP WORKER Oxygen Saturation 94% 06/05/2023 12:00 PM GENERAL SCRAP WORKER Inhaled Oxygen Concentration - - Weight 85.1 kg (187 lb 9.6 oz) 10/27/2023 2:00 P M CDT Height 170.2 cm (5' 7) 10/27/2023 2:00 PM CDT Body Mass Index 29.38 10/27/2023 2:00 PM CDT Plan of Treatment Not on file Medical Devices Implanted Type Area Soccer Referee Device Identifier Shelf Expiration Date Model / Serial / Lot [employer] Trufill Glue 1gm [facility] [id number] - [id number] Implanted:Qty: 1 on 05/25/2023 at [facility] [employer] 08/17/2024 [id number] / / [id number] [place] [address] HUMANA MEDICARE HMO HUMANA MEDICARE HMO Advance Directives For more information, please contact: [phone] * Full Code (Latest Code Status on File) Date Activated Date Inactivated Comments 05/24/2023 7:17 AM 05/26/2023 2:40 PM Care Teams City Recorder Relationship Specialty Start Date End Date Kalpesh Pemberton MD PCP - General Family Practice 07/21/23
--- OUTSIDE RECORDS SUMMARY | 2025-02-13 09:55 | XMS_ITS | Clinical Summary ---
Author Organization [facility] Care Team Providers Care Forger Helper Name Role Phone Unavailable Primary Care Provider Unavailabl e Social History Tobacco Use Types Packs/Day Years Used Date Smoking Tobacco: Never Assessed Sex and Gender Information Value Date Recorded Sex Assigned at Not on file Legal Sex Male 2:51 PM SELLING MANAGER Gender Identity Not on file Sexual Orientation [...]
[2025-02-13 10:09] LABS: IFOB Positive Control Positive; Immunochemical Fecal Occult Bl Positive (N)
[2025-02-13 12:11] LABS: Hepatitis B Surface Antigen Negative (Negative)
[2025-02-13 12:17] LABS: HAV RESULT Negative (Negative); Hepatitis B Core IgM Result Negative (Negative)
== END 2025-02-13 09:34 | disposition home or self-care (01) ==
PROVIDERS: PCP Family Medicine; Visit Provider Family Medicine
DX: D64.9 Anemia, unspecified (principal); R74.01 Elevation of levels of liver transaminase levels
CPT/HCPCS: 36415; 80074; 80076; 82274; 82728; 83540; 83550; 85025